=== PATIENT | female | born 1950 | race Caucasian/White ===

== ENCOUNTER 2016-11-21 19:17 | Inpatient (IN) | payer OTHER, MEDICARE ==
[~2016-11-21] VITALS: Ht 165.1 cm; Wt 73.4 kg
[2016-11-21] VITALS (14 sets, daily range): BP systolic 149–218; BP diastolic 69–104; PULSE 116–123; RESP 12–24; TEMP 99.2; O2SAT 92–99
[~2016-11-21 19:17] MED LIST: ALBU1AER INH; AZIT250T74 PO; CEFU1TAB42 PO; LISI10 PO; METF500 PO; PRED5PAK PO; VENL75 PO
[2016-11-21] MEDS ORDERED: VENL75TA PO (19:27)
[2016-11-21] MEDS ORDERED: ALBUAER3 INH (19:27)
[2016-11-21] MEDS ORDERED: RESP: ALBUTEROL 2.5 MG/3 ML NEB (PRN) ONE (19:42)
[2016-11-21] MEDS: RESP: ALBUTEROL 2.5 MG/3 ML NEB (SCH) INH ×3 (19:44→20:04)
--- NOTE | 2016-11-21 19:44 | PD ---
HPI Chief Complaint: Respiratory Symptoms Time Seen by Provider: 19:29 Travel History International Travel<30 days: No Contact w/Intl Traveler<30days: No Traveled to known affect area: No History of Present Illness HPI 66yo F with PMH of COPD not on home O2 presents to the ED with c/o of sob and cough for 2 days. Pt was given 125mg solumedrol, duonebs x3 by [facility] and states she is feeling a little better. Pt is tachypneic, RR in the mid 30s and saturating at 92% on 4L NC. Pt with bilateral wheezing, rhonchi. States she also has self diagnosed panic attacks. Denies any fever, chest pain, n/v, abdominal pain. Denies history of intubation. PFSH Past Medical History Arthritis: No Asthma: No Autoimmune Disease: No Blood Disorders: No Anxiety: No Depression: No Heart Rhythm Problems: No Cancer: No Cardiovascular Problems: Yes High Cholesterol: Yes Chemotherapy: No Chest Pain: No Congestive Heart Failure: No COPD: Yes Cerebrovascular Accident: No Coronary Artery Disease: Yes Diabetes: No Diminished Hearing: No Endocrine: No Gastrointestinal Disorders: No GERD: No Glaucoma: No Genitourinary: No Headaches: No Hepatitis: No Hiatal Hernia: No Heparin Induced Thrombocytopen: No Hypertension: No Immune Disorder: No Kidney Stones: No Musculoskeletal: Yes Neurologic: No Psychiatric: No Reproductive: No Respiratory: Yes (COPD) Migraines: No Myocardial Infarction: No Radiation Therapy: No Renal Failure: No Seizures: No Sickle Cell Disease: No Sleep Apnea: No Thyroid Disease: No Ulcer: No Tetanus Vaccination: Unknown Influenza Vaccination: Yes ?: Not Menopausal: Yes Past Surgical History Abdominal Surgery: Yes AICD: No Appendectomy: No Arteriovenous Shunt: No Body Medical Devices: none Cardiac Surgery: Yes (right carotid 2008) Cholecystectomy: Yes Ear Surgery: No Endocrine Surgery: No Eye Surgery: No Genitourinary Surgery: No Gynecologic Surgery: No Insulin Pump: No Joint Replacement: No Mastectomy: No Neurologic Surgery: No Oral Surgery: No Pacemaker: No Thoracic Surgery: No Other Surgery: Yes (UMBILICAL HERNIA REPAIR) Social History Alcohol Use: Yes (4 daily) Tobacco Use: Yes (1ppd) Substance Use: No Allergies-Medications (Allergen,Severity, Reaction): Coded Allergies: Codeine (Verified Adverse Reaction, Severe, "VIOLENTLY NAUSEATED", 11/21/16) Reported Meds & Prescriptions Reported Meds & Active Scripts Active Reported Effexor (Venlafaxine HCl) 75 Mg Tab 75 Mg PO DAILY Proair Hfa 8.5 GM Inh (Albuterol Sulfate) 90 Mcg/Act Aer 1 Puff INH Q4H PRN 108 mcg/actuation Review of Systems Except as stated in HPI: all other systems reviewed are Neg Physical Exam Narrative GENERAL: 66yo F in moderate distress. SKIN: Warm and dry. HEAD: Atraumatic. Normocephalic. EYES: Pupils equal and round. No scleral icterus. No injection or drainage. ENT: No nasal bleeding or discharge. Mucous membranes pink and moist. NECK: Trachea midline. No JVD. CARDIOVASCULAR: Tachycardic in the 120s. RESPIRATORY: + accessory muscle use. Coarse bilateral breath sounds with wheezing bilaterally. GASTROINTESTINAL: Abdomen soft, non-tender, nondistended. Hepatic and splenic margins not palpable. MUSCULOSKELETAL: No obvious deformities. No clubbing. No cyanosis. No edema. NEUROLOGICAL: Awake and alert. No obvious cranial nerve deficits. Motor grossly within normal limits. Normal speech. PSYCHIATRIC: Appropriate mood and affect; insight and judgment normal. Data Data Last Documented VS Vital Signs Date Time Temp Pulse Resp B/P Pulse Ox O2 Delivery O2 Flow Rate FiO2 11/21/16 20:50 119 12 149/90 98 Ventilator 50 11/21/16 20:04 3.00 11/21/16 19:54 99.2 Orders Complete Blood Count With Diff (11/21/16 19:38) Basic Metabolic Panel (Bmp) (11/21/16 19:38) B-Type Natriuretic Peptide (11/21/16 19:38) Act Partial Throm Time (Ptt) (11/21/16 19:38) Prothrombin Time / Inr (Pt) (11/21/16 19:38) Ckmb (Isoenzyme) Profile (11/21/16 19:38) Troponin I (11/21/16 19:38) Blood Culture (11/21/16 19:38) Iv Access Insert/Monitor (11/21/16 19:38) Electrocardiogram (11/21/16 19:38) Ecg Monitoring (11/21/16 19:38) Oximetry (11/21/16 19:38) Oxygen Administration (11/21/16 19:38) Chest, Single Ap (11/21/16 19:38) Sodium Chloride 0.9% Flush (Ns Flush) (11/21/16 19:45) Albuterol Neb (Albuterol Neb) (11/21/16 19:45) Lactic Acid Sepsis Protocol (11/21/16 19:38) Lorazepam Inj (Ativan Inj) (11/21/16 19:45) Arterial Blood Gas (Abg) (11/21/16 ) Albuterol Neb (Albuterol Neb) (11/21/16 19:42) Resp Bipap / Cpap Non Invas Vt (11/21/16 19:45) Hydralazine Inj (Apresoline Inj) (11/21/16 20:00) Etomidate Inj (Amidate Inj) (11/21/16 20:32) Sodium Chlor 0.9% 1000 Ml Inj (Ns 1000 M (11/21/16 20:45) Sodium Chlor 0.9% 1000 Ml Inj (Ns 1000 M (11/21/16 20:45) Sodium Chlor 0.9% 1000 Ml Inj (Ns 1000 M (11/21/16 20:45) RASS (11/21/16 20:32) Neurological Rass Scale GALO.Q2H (11/21/16 20:32) Succinylcholine Inj (Quelicin Inj) (11/21/16 20:33) Etomidate Inj (Amidate Inj) (11/21/16 20:45) Succinylcholine Inj (Quelicin Inj) (11/21/16 20:45) Propofol 1000 Mg/100 Ml Inj (Diprivan 10 (11/21/16 20:45) ^ Infusion (11/21/16 20:32) Admit Order (Ed Use Only) (11/21/16 20:58) Labs Laboratory Tests Test 11/21/16 19:40 White Blood Count 18.0 TH/MM3 Red Blood Count 4.84 MIL/MM3 Hemoglobin 12.0 GM/DL Hematocrit 38.0 % Mean Corpuscular Volume 78.5 FL Mean Corpuscular Hemoglobin 24.9 PG Mean Corpuscular Hemoglobin 31.7 % Concent Red Cell Distribution Width 18.5 % Platelet Count 476 TH/MM3 Mean Platelet Volume 8.1 FL Neutrophils (%) (Auto) 68.7 % Lymphocytes (%) (Auto) 16.9 % Monocytes (%) (Auto) 8.1 % Eosinophils (%) (Auto) 5.9 % Basophils (%) (Auto) 0.4 % Neutrophils # (Auto) 12.3 TH/MM3 Lymphocytes # (Auto) 3.0 TH/MM3 Monocytes # (Auto) 1.5 TH/MM3 Eosinophils # (Auto) 1.1 TH/MM3 Basophils # (Auto) 0.1 TH/MM3 CBC Comment AUTO DIFF Differential Comment AUTO DIFF CONFIRMED Platelet Estimate HIGH Platelet Morphology Comment NORMAL Ovalocytes 1+ Stomatocytes 1+ Prothrombin Time 10.8 SEC Prothromb Time International 1.0 RATIO Ratio Activated Partial 26.8 SEC Thromboplast Time Sodium Level 141 MEQ/L Potassium Level 4.1 MEQ/L Chloride Level 104 MEQ/L Carbon Dioxide Level 28.6 MEQ/L Anion Gap 8 MEQ/L Blood Urea Nitrogen 4 MG/DL Creatinine 0.65 MG/DL Estimat Glomerular Filtration 91 ML/MIN Rate Random Glucose 168 MG/DL Lactic Acid Level 0.7 mmol/L Calcium Level 9.0 MG/DL Total Creatine Kinase 86 U/L Troponin I LESS THAN 0.02 NG/ML B-Type Natriuretic Peptide 101 PG/ML [facility] Medical Decision Making Medical Screen Exam Complete: Yes Emergency Medical Condition: Yes Interpretation(s) EKG: Sinus tachycardia at 124bpm. Normal axis. Poor baseline due to pt's breathing. Differential Diagnosis COPD exacerbation vs. Pneumonia vs. ACS Narrative Course 66yo F with COPD in respiratory distress. Pt had already received methylprednisolone and duonebs x3 by [facility] and is tachypneic at 36 breaths per minute and tachycardic in the 120s. Pt hypoxic with saturation at 92% on 4L NC. Pt with diffuse wheezing bilaterally and placed immediately on BIPAP. Pt initially doing better on BIPAP but started pulling the mask off, stating she has panic attacks. Ativan 1mg IV given and pt placed back on BIPAP. Pt reevaluated and still tachypneic in the low 30s. Pt still with diffuse wheezing after 3 more albuterol treatments. Pt is becoming tired and decision is made to emergently intubate patient. Labs reviewed, leukocytosis at 18.0. Troponin negative. BNP 101. Lactic acid 0.7. Pt given NS IVF and also hydralazine 10mg IV. Pt started on propofol drip. CXR negative. Repeat CXR showed ET tube at 2.3cm above coreen. Discussed with Dr. Velazquez and accepted to ICU at [facility]. Pt's initial vent settings were 10/450/5/100% and ABG showed respiratory acidosis with pH was 7.052 pCO2 111 pO2 377 HCO2 29.5. Respiratory rate increased to 14 and FiO2 decreased to 50%. Will repeat ABG. Repeat ABG showed pH of 7.15 pCO2 improved to 83. pO2 108. Discussed with Dr. Velazquez and Tidal volume increase to 500 and RR to remain at 14. Critical Care Narrative Aggregate critical care time was 90 minutes. Time to perform other separately billable procedures was not included in the critical care time. My time did not include minutes spent treating any other patients simultaneously or on activities that did not directly contribute to the patient's treatment. The services I provided to this patient were to treat and/or prevent clinically significant deterioration that could result in: cardiovascular collapse or . I provided critical care services requiring my management, as noted below: Chart data review, documentation time, medication orders and management, vital sign assessments/reviewing monitor data, ordering and reviewing lab tests, ordering and interpreting/reviewing x-rays and diagnostic studies, care of the patient and discussion of the patient with the admitting physicians. Procedures Procedure Narrative The patient was put in optimal position for the procedure. Rapid sequence intubation was initiated by me using 20 milligrams of etomidate IV and 100 milligrams of succinylcholine IV. The patient was intubated with a 7.5 cuffed endotracheal tube. Tube placement was confirmed by visualization of the tube and balloon passing through the cords, capnometry and subsequent chest x-ray. Breath sounds were equal and well aerated bilaterally postintubation. No breath sounds over stomach. Patient tolerated procedure well. Diagnosis Primary Impression: Acute respiratory failure with hypoxia Additional Impression: Chronic obstructive pulmonary disease with acute exacerbation Admitting Information Admitting Physician Requests: it An Goldberg DO Nov 21, 2016 19:44
[2016-11-21] MEDS ORDERED: SODIUM CHLORIDE 0.9% FLUSH 5 ML FLUSH IVF PRN (19:45)
[2016-11-21] MEDS ORDERED: LORazepam 2 MG/ML VIAL IV PUSH ONE (19:45)
[2016-11-21 19:55] LABS: AUTOMATED NEUTROPHIL # 12.3 TH/MM3 (1.8-7.7); BASOPHIL # 0.1 TH/MM3 (0-0.2); BASOPHIL % 0.4 % (0.0-2.0); EOSINOPHIL # 1.1 TH/MM3 (0-0.4); EOSINOPHIL % 5.9 % (0.0-4.0); LYMPH % 16.9 % (9.0-44.0); MEAN CELL VOLUME 78.5 FL (80.0-100.0); MEAN CORPUSCULAR HEMOGLOBIN 24.9 PG (27.0-34.0); MEAN CORPUSCULAR HGB CONC 31.7 % (32.0-36.0); MONO % 8.1 % (0.0-8.0); NEUT % 68.7 % (16.0-70.0); PLATELET COUNT 476 TH/MM3 (150-450); RED BLOOD COUNT 4.84 MIL/MM3 (4.00-5.30); RED CELL DISTRIBUTION WIDTH 18.5 % (11.6-17.2)
[2016-11-21 19:59] LABS: HEMO FLAGS AUTO DIFF
[2016-11-21] MEDS ORDERED: hydrALAZINE HCL 20 MG/ML VIAL IV PUSH ONE (20:00)
[2016-11-21 20:04] LABS: CHLORIDE 104 MEQ/L (98-107); POTASSIUM 4.1 MEQ/L (3.5-5.1); SODIUM (NA) 141 MEQ/L (136-145)
[2016-11-21 20:07] LABS: ANION GAP 8 MEQ/L (5-15); BICARBONATE 28.6 MEQ/L (21.0-32.0); BLOOD UREA NITROGEN 4 MG/DL (7-18)
[2016-11-21 20:09] LABS: APTT (PATIENT) 26.8 SEC (24.3-30.1); PROTHROMBIN TIME - PATIENT 10.8 SEC (9.8-11.6)
[2016-11-21 20:10] LABS: GLOMERULAR FILTRATION RATE 91 ML/MIN (>89); OVALOCYTES 1+ (NORMAL); PLATELET ESTIMATE SMEAR HIGH (NORMAL); PLATELET MORPHOLOGY NORMAL (NORMAL); SCAN/DIFF AUTO DIFF CONFIRMED; STOMATOCYTES 1+ (NORMAL)
[2016-11-21 20:18] LABS: CREATINE KINASE 86 U/L (26-192)
[2016-11-21] MEDS ORDERED: ETOMIDATE 20 MG/10 ML VIAL ONE (20:32)
[2016-11-21] MEDS ORDERED: SUCCINYLCHOLINE CHLORIDE 200 MG/10 ML VIAL ONE (20:33)
[2016-11-21] MEDS ORDERED: SODIUM CHLOR 0.9% 1000 ML INJ 1,000 ML IV ONE ×3 (20:45)
[2016-11-21] MEDS ORDERED: ETOMIDATE 20 MG/10 ML VIAL IV PUSH ONE (20:45)
[2016-11-21] MEDS ORDERED: SUCCINYLCHOLINE CHLORIDE 200 MG/10 ML VIAL IV PUSH ONE (20:45)
[2016-11-21] MEDS ORDERED: SUCCINYLCHOLINE CHLORIDE 200 MG/10 ML VIAL IV SCH (20:50)
[2016-11-21] MEDS: PROPOFOL 1000 MG/100 ML INJ 100 ML IV SCH ×2 (20:50→21:55)
[2016-11-21] MEDS ORDERED: ETOMIDATE 20 MG/10 ML VIAL IV PUSH SCH (20:50)
--- NOTE | 2016-11-21 21:05 | RADHPO ---
EXAM DATE/TIME: 11/21/2016 20:26 [facility] COMPARISON: CHEST SINGLE AP, February 15, 2016, 17:00. INDICATIONS : Shortness of breath. MEDICAL HISTORY : Chronic obstructive pulmonary disease. SURGICAL HISTORY : None. ENCOUNTER: Initial ACUITY: 1 day PAIN SCORE: 2/10 LOCATION: Bilateral chest FINDINGS: A single view of the chest demonstrates the lungs to be symmetrically aerated without evidence of mas s, infiltrate or effusion. The cardiomediastinal contours are unremarkable. Osseous structures are intact. CONCLUSION: No acute cardiopulmonary disease demonstrated. Tarun Salamanca MD on November 21, 2016 at 21:04 Board Certified Radiologist. This report was verified electronically.
--- NOTE | 2016-11-21 21:29 | RADHPO ---
EXAM DATE/TIME: 11/21/2016 21:17 [facility] COMPARISON: CHEST SINGLE AP, November 21, 2016, 20:26. INDICATIONS : Post intubation. MEDICAL HISTORY : Chronic obstructive pulmonary disease. SURGICAL HISTORY : None. ENCOUNTER: Subsequent ACUITY: 1 day PAIN SCORE: Non-responsive. LOCATION: Bilateral chest FINDINGS: Patient has been intubated. Endotracheal tube tip is about 2.3 cm above the coreen. Lungs remain reas onably clear. No pleural effusion. No pneumothorax. Stable, normal heart size. CONCLUSION: Interim intubation with endotracheal tube tip about 2.3 cm above the coreen. Lungs remain reasonably clear. Tarun Salamanca MD on November 21, 2016 at 21:27 Board Certified Radiologist. This report was verified electronically.
[2016-11-21 21:54] LABS: BLOOD GAS BASE EXCESS -0.3 mmol/L (-2-2); BLOOD GAS CARBOXYHEMOGLOBIN 1.6 % (0-4); BLOOD GAS HCO3 30 mmol/L (22-26); BLOOD GAS METHEMOGLOBIN 1.3 % (0-2); BLOOD GAS O2 HGB SATURATION 97 % (90-100); BLOOD GAS OXYGEN CONTENT 16.7 Vol % (12.0-20.0); BLOOD GAS PCO2 111 mmHG (38-42); BLOOD GAS PO2 377 mmHG (61-120); BLOOD GAS TOTAL HGB 11.6 G/DL (12.0-16.0); TEMP CORR TO 98.6
[2016-11-21 21:55] LABS: CRITICAL VALUE YES; DRAW SITE RT RADIAL; FIO2 100 %; NUMBER OF ARTERIAL PUNCTURES 1; OXYGEN DEVICE VENTILATOR; STAT YES; ULNAR PULSE PRESENT
[2016-11-21 22:55] LABS: BLOOD GAS BASE EXCESS -0.4 mmol/L (-2-2); BLOOD GAS CARBOXYHEMOGLOBIN 1.9 % (0-4); BLOOD GAS HCO3 28 mmol/L (22-26); BLOOD GAS METHEMOGLOBIN 1.3 % (0-2); BLOOD GAS O2 HGB SATURATION 93 % (90-100); BLOOD GAS OXYGEN CONTENT 14.6 Vol % (12.0-20.0); BLOOD GAS PCO2 83 mmHG (38-42); BLOOD GAS PO2 108 mmHG (61-120); TEMP CORR TO 98.6
[2016-11-21 22:56] LABS: CRITICAL VALUE YES; DRAW SITE RT RADIAL; FIO2 50 %; NUMBER OF ARTERIAL PUNCTURES 1; OXYGEN DEVICE VENTILATOR; STAT YES; ULNAR PULSE PRESENT; VENT SETTINGS PRVC/AC
[2016-11-22] VITALS (98 sets, daily range): BP systolic 78–211; BP diastolic 46–163; PULSE 80–121; RESP 13–38; TEMP 98.7–98.9; O2SAT 86–100
[2016-11-22] MEDS: PROPOFOL 1000 MG/100 ML INJ 100 ML IV SCH ×5 (00:20→19:08)
[2016-11-22] MEDS: RESP: ALBUTEROL 2.5 MG/3 ML NEB (SCH) NEB ×4 (01:15→07:23)
[2016-11-22 01:32] LABS: BLOOD GAS BASE EXCESS 1.6 mmol/L (-2-2); BLOOD GAS CARBOXYHEMOGLOBIN 1.8 % (0-4); BLOOD GAS HCO3 28 mmol/L (22-26); BLOOD GAS METHEMOGLOBIN 1.4 % (0-2); BLOOD GAS O2 HGB SATURATION 95 % (90-100); BLOOD GAS OXYGEN CONTENT 14.6 Vol % (12.0-20.0); BLOOD GAS PCO2 66 mmHG (38-42); BLOOD GAS PO2 117 mmHG (61-120); BLOOD GAS TOTAL HGB 10.8 G/DL (12.0-16.0); CRITICAL VALUE YES; DRAW SITE RT BRACHIAL; FIO2 50 %; NUMBER OF ARTERIAL PUNCTURES 1; OXYGEN DEVICE VENTILATOR; STAT NO; TEMP CORR TO 98.6; VENT SETTINGS PRVC/AC
[2016-11-22] MEDS: fentaNYL DRIP 250 ML IV SCH (05:13)
[2016-11-22] MEDS ORDERED: CHLORHEXIDINE GLUCONATE 2 % 1 PACK (2 CLOTHS)(extra cloths) TOP PRN (05:15)
[2016-11-22] MEDS: SODIUM CHLOR 0.9% 1000 ML INJ 1,000 ML IV SCH ×2 (08:07→19:28)
--- NOTE | 2016-11-22 08:14 | PD.PROCEDR ---
Central Line Procedure REASON FOR PROCEDURE Central venous access PROCEDURE PERFORMED Central line placement: Right internal jugular vein CONSENT Informed consent for procedure was obtained. The risks and benefits of the procedure were discussed to include but limited to bleeding, clot formation, infection, and even . ANESTHESIA Local injection of 1% Lidocaine DESCRIPTION OF THE PROCEDURE The patient was placed in supine, mild Trendelenburg position. The area was exposed and cleansed with ChloraPrep, times two. Large sterile drape was used to cover the patient, with the site exposed, under sterile conditions including cap, face mask, sterile gown, and sterile gloves. On single attempt, the introducer needle was inserted with negative pressure in syringe and venous flash was obtained. The guide wire was then advanced without any restriction and the needle was removed. The dilator was used without any complications. Using Seldinger technique the triple-lumen catheter was advanced over the guide wire to a depth of 16 centimeters. The guide wire was removed. All ports were aspirated with dark venous blood return and flushed easily with sterile saline. All ports were capped. Antibiotic disc was placed around central line at puncture site. The central line was secured to the skin with two interrupted 2.0 silk sutures. The area was bandaged with sterile see-through central line bandage. RADIOLOGICAL DATA Ultrasound guidance was used to locate right internal jugular vein. Doppler/ color flow was used to confirm venous flow. COMPLICATIONS: No apparent complications ESTIMATED BLOOD LOSS: Less than 1 cc. Aubrey Lombardo MD Nov 22, 2016 08:14
[2016-11-22] MEDS ORDERED: GLUCAGON 1 MG/ML VIAL OTHER PRN (08:15)
[2016-11-22] MEDS ORDERED: POTASSIUM PHOSPHATE INJ 30 MMOL in SODIUM CHLOR 0.9% 250 ML INJ 250 ML IV PRN (08:15)
[2016-11-22] MEDS ORDERED: SODIUM CHLORIDE 0.9% FLUSH 5 ML FLUSH IVF PRN (08:15)
[2016-11-22] MEDS ORDERED: SENNOSIDES SYRUP 8.8 MG/5 ML CUP G-TUBE PRN (08:15)
[2016-11-22] MEDS ORDERED: ONDANSETRON HCL 4 MG/2 ML VIAL IV PRN (08:15)
[2016-11-22] MEDS ORDERED: MAGNESIUM SULFATE INJ 2 GM in SODIUM CHLORIDE 0.9% INJ 96 ML IV PRN (08:15)
[2016-11-22] MEDS ORDERED: MAGNESIUM SULFATE INJ 4 GM in SODIUM CHLORIDE 0.9% INJ 92 ML IV PRN (08:15)
[2016-11-22] MEDS ORDERED: DEXTROSE 50% IN WATER 50 ML VIAL(D50) IV PUSH PRN (08:15)
[2016-11-22] MEDS ORDERED: POTASSIUM PHOSPHATE MONOBASIC 500 MG TAB PO/TUBE PRN (08:15)
[2016-11-22] MEDS ORDERED: CHLORHEXIDINE GLUCONATE 2 % 1 PACK (2 CLOTHS) TOP PRN (08:15)
[2016-11-22] MEDS ORDERED: POTASSIUM CL 40 MEQ/30 ML LIQ UDC PO/TUBE PRN ×2 (08:15)
[2016-11-22] MEDS ORDERED: POTASSIUM PHOSPHATE MONOBASIC 500 MG TAB PO PRN (08:15)
[2016-11-22] MEDS ORDERED: POTASSIUM CHLOR 40 MEQ PREMIX 100 ML IV PRN ×2 (08:15)
[2016-11-22] MEDS ORDERED: MISCELLANEOUS NURSING INFORMATION XX SCH (08:15)
[2016-11-22] MEDS ORDERED: MAGNESIUM OXIDE 400 MG TAB PO PRN (08:15)
[2016-11-22] MEDS ORDERED: POTASSIUM CHLOR 20 MEQ PREMIX 100 ML IV PRN ×2 (08:15)
[2016-11-22] MEDS ORDERED: SODIUM PHOSPHATE INJ 30 MMOL in SODIUM CHLOR 0.9% 250 ML INJ 240 ML IV PRN (08:15)
--- NOTE | 2016-11-22 08:16 | HHI.HP ---
[facility] Service Critical Care Medicine Primary Care Physician No Primary Care Physician Admission Diagnosis Acute hypoxic respiratory failure Diagnosis: (1) Acute respiratory failure with hypoxia and hypercapnia Diagnosis: Principal (2) Chronic obstructive pulmonary disease with acute exacerbation Diagnosis: Principal (3) Alcohol abuse, daily use Diagnosis: Principal (4) Hypertension Diagnosis: Principal (5) Systemic inflammatory response syndrome Diagnosis: Principal (6) Sinus tachycardia Diagnosis: Principal (7) Hyperglycemia Diagnosis: Principal (8) Leukocytosis Diagnosis: Principal Chief Complaint: Shortness of breath Travel History International Travel<30 Days: No Contact w/Intl Traveler <30 Da: No Traveled to Known Affected Are: No Sepsis Criteria SIRS Criteria (2 or more): RR > 20 or PaCO2 < 32, WBC > 76768, < 4000 or > 10 % bands Criteria Outcome: Meets SIRS criteria History of Present Illness 66-year-old female. Date of admission 11/22/2016. Past medical history includes COPD, EtOH, depression, chronic neck pain and peripheral neuropathy. She presented to [facility] with 2 day history of respiratory distress. No other information is currently available patient is intubated. She received 125 mg methylprednisolone and duonebs x3 by [facility] but arrived hypoxic, tachycardic tachypneic. She did not tolerate BiPAP due to anxiety. Received 3 additional DuoNeb therapies but still tired so decision was is made to emergently intubate patient. She received 20 mg etomidate and 100 mg succinylcholine successfully intubated. Chest x-ray revealed no acute findings. Patient will will have increased tidal volume and respiratory rate both PCO2. She has a leukocytosis of 18,000. Review of Systems ROS Limitations: Intubated Past Family Social History Allergies: Coded Allergies: Codeine (Verified Adverse Reaction, Severe, "VIOLENTLY NAUSEATED", 11/21/16) Past Medical History COPD Hypertension EtOH Tobaccoism - quit 7 days ago Chronic neck pain Depression/panic attacks Peripheral neuropathy Past Surgical History Tubal ligation Abdominal hernia repair Right carotid endarterectomy Lumbar laminectomy Cholecystectomy Reported Medications Effexor 75 mg by mouth daily Pro Air 1 puff every 4 hours as needed Active Ordered Medications Reviewed in EMR Family History Mother with diabetes. Sister with COPD Social History 1 pack per day tobacco since age 26. 3-4 beers daily. Positive THC use Physical Exam Vital Signs Vital Signs Date Time Temp Pulse Resp B/P Pulse Ox O2 Delivery O2 Flow Rate FiO2 2/3/17 07:25 95 50 11/22/16 06:00 102 11/22/16 05:30 86 50 11/22/16 04:00 121 11/22/16 04:00 95 40 11/22/16 02:12 113 18 98 Ventilator 50 11/22/16 02:00 100 11/22/16 02:00 99 100 11/22/16 01:46 114 17 160/74 99 50 11/22/16 01:01 112 15 150/69 98 50 11/22/16 00:31 111 15 163/74 97 50 11/22/16 00:06 113 18 178/82 98 50 11/22/16 00:05 98 50 11/22/16 00:03 50 11/21/16 23:33 116 18 150/69 99 50 11/21/16 22:50 119 18 172/75 97 50 11/21/16 22:19 121 18 153/73 98 50 11/21/16 21:58 123 17 165/81 99 50 11/21/16 21:55 98 50 11/21/16 21:49 50 11/21/16 21:36 121 15 190/88 99 100 11/21/16 21:30 100 11/21/16 21:21 122 12 175/86 11/21/16 21:00 95 100 11/21/16 20:50 119 12 149/90 98 Ventilator 50 11/21/16 20:50 50 11/21/16 20:04 98 Nasal Cannula 3.00 11/21/16 19:54 99.2 116 22 206/85 95 BiPAP 40 11/21/16 19:53 24 94 BiPAP 40 11/21/16 19:45 98 40 11/21/16 19:35 BiPAP 40 11/21/16 19:32 120 20 94 Nasal Cannula 4 11/21/16 19:20 99.2 120 20 218/104 92 Physical Exam GENERAL: 66-year-old female, critically ill currently orotracheally intubated SKIN: Warm and dry. No rash HEAD: Atraumatic. Normocephalic. EYES: Pupils equal and round about 2 mm bilaterally and reactive. No scleral icterus. No injection or drainage. ENT: No nasal bleeding or discharge. Mucous membranes pink and moist. NECK: Trachea midline. No JVD. Enlarged. Supple. CARDIOVASCULAR: Regular rate and rhythm. S1, S2. No S4. No murmur RESPIRATORY: End expiratory wheeze. Coarse crackles appreciated bilaterally. Breath sounds equal bilaterally. GASTROINTESTINAL: Abdomen soft, non-tender, obese. Hypoactive bowel sounds are appreciated hepatic and splenic margins not palpable. MUSCULOSKELETAL: Extremities with bilateral nonpitting edema. No obvious deformities. NEUROLOGICAL: Sedated on the ventilator on propofol drip. Withdraws to pain in all 4 extremities. Positive gag. Positive corneal reflex. Laboratory Laboratory Tests Test 11/21/16 11/21/16 11/21/16 11/22/16 19:40 21:35 22:40 01:18 White Blood Count 18.0 Red Blood Count 4.84 Hemoglobin 12.0 Hematocrit 38.0 Mean Corpuscular Volume 78.5 Mean Corpuscular Hemoglobin 24.9 Mean Corpuscular Hemoglobin 31.7 Concent Red Cell Distribution Width 18.5 Platelet Count 476 Mean Platelet Volume 8.1 Neutrophils (%) (Auto) 68.7 Lymphocytes (%) (Auto) 16.9 Monocytes (%) (Auto) 8.1 Eosinophils (%) (Auto) 5.9 Basophils (%) (Auto) 0.4 Neutrophils # (Auto) 12.3 Lymphocytes # (Auto) 3.0 Monocytes # (Auto) 1.5 Eosinophils # (Auto) 1.1 Basophils # (Auto) 0.1 CBC Comment AUTO DIFF Differential Comment AUTO DIFF CONFIRMED Platelet Estimate HIGH Platelet Morphology Comment NORMAL Ovalocytes 1+ Stomatocytes 1+ Prothrombin Time 10.8 Prothromb Time International 1.0 Ratio Activated Partial 26.8 Thromboplast Time Sodium Level 141 Potassium Level 4.1 Chloride Level 104 Carbon Dioxide Level 28.6 Anion Gap 8 Blood Urea Nitrogen 4 Creatinine 0.65 Estimat Glomerular Filtration 91 Rate Random Glucose 168 Lactic Acid Level 0.7 Calcium Level 9.0 Total Creatine Kinase 86 Troponin I LESS THAN 0.02 B-Type Natriuretic Peptide 101 Blood Gas Puncture Site RT RADIAL RT RADIAL RT BRACHIAL Blood Gas Patient Temperature 98.6 98.6 98.6 Blood Gas HCO3 30 28 28 Blood Gas Base Excess -0.3 -0.4 1.6 Blood Gas Oxygen Saturation 97 93 95 Arterial Blood pH 7.05 7.15 7.26 Arterial Blood Partial 111 83 66 Pressure CO2 Arterial Blood Partial 377 108 117 Pressure O2 Arterial Blood Oxygen Content 16.7 14.6 14.6 Arterial Blood 1.6 1.9 1.8 Carboxyhemoglobin Arterial Blood Methemoglobin 1.3 1.3 1.4 Blood Gas Hemoglobin 11.6 11.0 10.8 Oxygen Delivery Device VENTILATOR VENTILATOR VENTILATOR Blood Gas Ventilator Setting A/C 450/10/5 PRVC/AC PRVC/AC PEEP Blood Gas Inspired Oxygen 100 50 50 Date/Time Procedure Status Source Growth 11/21/16 19:45 Aerobic Blood Culture Received Blood Peripheral Pending 11/21/16 19:45 Anaerobic Blood Culture Received Blood Peripheral Pending Result Diagram: 11/21/16193911/21/161939 Imaging Last Impressions Chest X-Ray 11/21/161937 Signed Impressions: Service Date/Time: November 20:26 - CONCLUSION: No acute cardiopulmonary disease demonstrated. Tarun Salamanca MD Assessment and Plan Assessment and Plan Neuro/Psych: History of depression/anxiety EtOH Patient is currently on propofol at 40 mcg/kg/m/fentanyl at 50 g an hour for sedation/analgesia while intubated Goal of RASS -2. Daily sedation vacation Vitamin bag daily 3 days for EtOH use Monitor for DTs Currently holding home medication Effexor 75 mg by mouth daily. Resume when clinically indicated CV: History of hypertension History of right carotid endarterectomy Currently normal saline at 84 cc an hour. Not requiring antihypertensives and/or vasopressors at the present time Resp: Acute hypoxic and hypercapnic respiratory failure COPD Tobaccoism ACV 14/600/5/50 Ventilator bundle Bronchodilator therapy every 4 hours and as needed Pulmicort twice a day Solu-Medrol 40 mg IV every 8 hours Spontaneous breathing trials daily Follow-up chest x-ray in a.m. No acute findings on a.m. chest x-ray On pulmonary every 4 hours at home as needed GI: Start tube feeding with Jevity 1.5 goal 50 cc an hour Protonix for GI prophylaxis Colace/as needed Senokot for bowel regimen : Dorsey has been placed for accurate I's and O's in critically ill patient Endo: Every 6 hours sliding scale insulin with Accu-Cheks to maintain euglycemia. Moderate regimen. Renal: Creatinine currently within normal limits. Accurate I's and O's. Monitor urine output Heme: Leukocytosis Follow-up CBC in AM. Monitor trends ID: Day 1 Rocephin/Zithromax. Pertinent cultures Blood cultures 2 pending Influenza/UA/sputum pending FEN: Replace electrolytes as clinically indicated per ICU protocol MSK: Chronic neck pain History of lumbar laminectomy PT evaluate and treat Access - Utilize peripheral IV. Central line if indicated Prophylaxis - GI - Protonix - DVT - SCD/heparin subcutaneous Critical Care: The total critical care time was 55 minutes. Time to perform other separately billable procedures was not included in the critical care time. Code Status Full code Discussed Condition With [facility]. Family not available. Care plan discussed all questions answered. Problem Qualifiers (1) Hypertension: Qualified Code: I10 - Essential hypertension (2) Leukocytosis: Qualified Code: D72.829 - Leukocytosis, unspecified type Aubrey Lombardo MD Nov 22, 2016 08:15
--- NOTE | 2016-11-22 08:28 | RADHPO ---
EXAM DATE/TIME: 11/22/2016 08:17 [facility] COMPARISON: CHEST SINGLE AP, November 21, 2016, 21:17. INDICATIONS : Post central line. MEDICAL HISTORY : Chronic obstructive pulmonary disease. Hypercholesterolemia. CAD. TB. ENCOUNTER: Subsequent ACUITY: 2 days PAIN SCORE: 10/10 LOCATION: Right chest FINDINGS: Central line is in good position. The ET tube and nasogastric tube are in good position. The lungs are clear. The heart and pulmonary vascularity are normal. CONCLUSION: Line in good position without pneumothorax. Bebeto Donis MD FACR on November 22, 2016 at 8:24 Board Certified Radiologist. This report was verified electronically.
[2016-11-22] MEDS: SODIUM CHLORIDE 0.9% FLUSH 5 ML FLUSH IV FLUSH SCH ×2 (09:34→19:28)
[2016-11-22] MEDS: SODIUM CHLORIDE 0.9% FLUSH 5 ML FLUSH IVF SCH (09:35)
[2016-11-22] MEDS: PANTOPRAZOLE SODIUM 40 MG VIAL IV SCH (09:42)
[2016-11-22] MEDS: HEPARIN SODIUM - SQ 10,000 UNITS/ML VIAL SQ SCH ×2 (09:43→19:27)
[2016-11-22] MEDS: AZITHROMYCIN INJ 500 MG in SODIUM CHLOR 0.9% 250 ML INJ 250 ML IV SCH (09:44)
[2016-11-22] MEDS ORDERED: TERBUTALINE INJ 1 MG/ML AMP SQ PRN (10:00)
[2016-11-22 10:05] LABS: BLOOD, URINE NEG (NEG); GLUCOSE,URINE NEG (NEG); KETONE, URINE NEG (NEG); NITRITE,URINE NEG (NEG)
[2016-11-22 10:12] LABS: METHOD OF COLLECTION CATH
[2016-11-22 10:13] LABS: COMMENT (UR) CATH-CULT NOT IND; CULTURE IF INDICATED CATH CULTURE NOT IND; RBC, URINE 0-3 /hpf (0-3); URINE COLOR YELLOW (YELLW/STRAW); WBC, URINE 0-2 /hpf (0-5)
[2016-11-22] MEDS: MULTIVITAMIN INJ 10 ML, THIAMINE INJ 100 MG, FOLIC ACID INJ 1 MG in SODIUM CHLORID 0.9%... IV SCH (10:16)
[2016-11-22] MEDS: ARTIFICIAL TEARS OPTH SOLN 15 ML BTL EACH EYE SCH ×3 (10:41→18:22)
[2016-11-22] MEDS: DOCUSATE SODIUM 100 MG/10 ML UDC G-TUBE SCH ×2 (10:41→19:27)
[2016-11-22] MEDS: cefTRIAXone INJ 1,000 MG in SODIUM CHLORIDE 0.9% INJ 100 ML IV SCH (10:43)
[2016-11-22] MEDS: PHENYLEPHRINE INJ 160 MG in DEXTROSE 5% IN WATE 500 ML INJ 484 ML IV SCH ×2 (11:02)
[2016-11-22] MEDS: RESP: BUDESONIDE 0.5 MG/2 ML NEB NEB SCH ×2 (11:05→19:38)
[2016-11-22] MEDS: RESP: ALBUTEROL 2.5 MG/IPRATROPIUM 0.5 MG NEB (SCH) INH ×3 (11:05→19:38)
[2016-11-22 11:22] LABS: BLOOD GAS BASE EXCESS 0.5 mmol/L (-2-2); BLOOD GAS CARBOXYHEMOGLOBIN 1.2 % (0-4); BLOOD GAS HCO3 26 mmol/L (22-26); BLOOD GAS O2 HGB SATURATION 97 % (90-100); BLOOD GAS OXYGEN CONTENT 14.1 Vol % (12.0-20.0); BLOOD GAS PCO2 56 mmHg (38-42); BLOOD GAS PO2 126 mmHg (61-120); BLOOD GAS TOTAL HGB 10.2 G/DL (12.0-16.0); CRITICAL VALUE YES; OXYGEN DEVICE VENTILATOR
[2016-11-22 11:23] LABS: DRAW SITE LT RADIAL; FIO2 50 %; NUMBER OF ARTERIAL PUNCTURES 1; STAT NO; ULNAR PULSE PRESENT; VENT SETTINGS AC14/600/PEEP5
[2016-11-22] MEDS: INSULIN NovoLIN REGULAR SUPPLEMENTAL SCALE SQ SCH ×2 (12:32→18:22)
--- NOTE | 2016-11-22 13:57 | EKG ---
Date Performed: 11/21/2016 Time Performed: 21:40:22 PTAGE: 66 years EKG: Sinus tachycardia ST junctional depression is nonspecific Compared to the previous tracing, there has been an increase in the sinus tachycardia and the minimal junctional ST depression is new Borderline ECG PREVIOUS TRACING : 02/15/16 DOCTOR: Rhnoda Oneal Interpretating Date/Time 11/22/2016 13:56:59
[2016-11-22] MEDS: methylPREDNISolone SOD SUCC 40 MG/1 ML VIAL IV PUSH SCH ×2 (14:16→19:27)
[2016-11-23] VITALS (74 sets, daily range): BP systolic 90–168; BP diastolic 47–77; PULSE 58–100; RESP 9–25; TEMP 97.6–98.7; O2SAT 96–100
[2016-11-23] MEDS: PROPOFOL 1000 MG/100 ML INJ 100 ML IV SCH ×5 (00:01→22:28)
[2016-11-23] MEDS: CHLORHEXIDINE GLUCONATE 2 % 1 PACK (2 CLOTHS)(taper/protocol) TOP SCH (00:01)
[2016-11-23] MEDS: INSULIN NovoLIN REGULAR SUPPLEMENTAL SCALE SQ SCH ×5 (00:01→23:27)
[2016-11-23] MEDS: RESP: ALBUTEROL 2.5 MG/IPRATROPIUM 0.5 MG NEB (SCH) INH ×7 (01:45→23:28)
[2016-11-23] MEDS ORDERED: CHLORHEXIDINE GLUCONATE 2 % 1 PACK (2 CLOTHS) TOP SCH (04:00)
[2016-11-23] MEDS: SODIUM CHLOR 0.9% 1000 ML INJ 1,000 ML IV SCH ×2 (04:17→21:05)
[2016-11-23] MEDS: methylPREDNISolone SOD SUCC 40 MG/1 ML VIAL IV PUSH SCH ×3 (04:27→21:04)
[2016-11-23 06:07] LABS: AUTOMATED NEUTROPHIL # 16.9 TH/MM3 (1.8-7.7); BASOPHIL % 0.1 % (0.0-2.0); LYMPHOCYTE # 1.6 TH/MM3 (1.0-4.8); MEAN CELL VOLUME 79.5 FL (80.0-100.0); MEAN CORPUSCULAR HEMOGLOBIN 24.7 PG (27.0-34.0); MEAN CORPUSCULAR HGB CONC 31.1 % (32.0-36.0); MONO % 6.6 % (0.0-8.0); NEUT % 85.3 % (16.0-70.0); PLATELET COUNT 414 TH/MM3 (150-450); RED CELL DISTRIBUTION WIDTH 18.5 % (11.6-17.2); WHITE BLOOD COUNT 19.8 TH/MM3 (4.0-11.0)
[2016-11-23 06:09] LABS: HEMO FLAGS AUTO DIFF
[2016-11-23 06:16] LABS: CHLORIDE 107 MEQ/L (98-107); POTASSIUM 4.4 MEQ/L (3.5-5.1); SODIUM (NA) 143 MEQ/L (136-145)
[2016-11-23 06:20] LABS: APTT (PATIENT) 23.7 SEC (24.3-30.1); INTERNATIONAL NORMALIZED RATIO 0.9 RATIO
[2016-11-23 06:22] LABS: BANDS 2 % (0-6); POLYS (SEG NEUTROPHILS) 84 % (16-70); WBC DIFF SAMPLE 100
[2016-11-23 06:23] LABS: PLATELET ESTIMATE SMEAR NORMAL (NORMAL); PLATELET MORPHOLOGY NORMAL (NORMAL); SCAN/DIFF FINAL DIFF MANUAL
[2016-11-23 06:30] LABS: ALKALINE PHOSPHATASE 119 U/L (45-117); ALT (GPT) 16 U/L (10-53); ANION GAP 5 MEQ/L (5-15); AST (GOT) 23 U/L (15-37); BICARBONATE 31.2 MEQ/L (21.0-32.0); BLOOD UREA NITROGEN 11 MG/DL (7-18); GLOMERULAR FILTRATION RATE 79 ML/MIN (>89); MAGNESIUM 2.4 MG/DL (1.5-2.5); TOTAL BILIRUBIN ADULT 0.2 MG/DL (0.2-1.0)
--- NOTE | 2016-11-23 06:35 | RADHPO ---
EXAM DATE/TIME: 11/23/2016 06:18 [facility] COMPARISON: CHEST SINGLE AP, November 22, 2016, 8:17. INDICATIONS : Shortness of breath. MEDICAL HISTORY : Chronic obstructive pulmonary disease. Hypercholesterolemia. CAD, TB SURGICAL HISTORY : None. ENCOUNTER: Subsequent ACUITY: 3 days PAIN SCORE: Non-responsive. LOCATION: Bilateral chest FINDINGS: Portable AP view of the chest demonstrates a normal-sized cardiac silhouette. ETT, NG tube, and right IJ line remain present. Lungs are mildly underinflated and there is stable interstitial prominence. No effusion, consolidation, or pneumothorax is appreciated. Bones demonstrate no acute finding. CONCLUSION: Stable chest x-ray with interstitial prominence bilaterally. Tarun Gerardo MD on November 23, 2016 at 6:32 Board Certified Radiologist. This report was verified electronically.
[2016-11-23] MEDS: RESP: BUDESONIDE 0.5 MG/2 ML NEB NEB SCH ×2 (07:41→19:03)
--- NOTE | 2016-11-23 08:16 | HHI.CCPN ---
Subjective Remarks/Hospital Course 66-year-old female. Date of admission 11/22/2016. Past medical history includes COPD, EtOH, depression, chronic neck pain and peripheral neuropathy. [facility] day history of respiratory distress. No other information is currently available patient is intubated. She received 125 mg methylprednisolone and duonebs x3 by EVAC but arrived hypoxic, tachycardic tachypneic. She did not tolerate BiPAP due to anxiety. Received 3 additional DuoNeb therapies but still tired so decision was is made to emergently intubate patient. She received 20 mg etomidate and 100 mg succinylcholine successfully intubated. Chest x-ray revealed no acute findings. Patient will will have increased tidal volume and respiratory rate both PCO2. She has a leukocytosis of 18,000. Subjective 11/23: Arousable on the ventilator. High peak pressures noted on the ventilator. Tolerating tube feeds. Afebrile. Moves all 4 extremities spontaneous and quite agitatedon sedation vacation Objective Vital Signs Date Time Temp Pulse Resp B/P Pulse Ox O2 Delivery O2 Flow Rate FiO2 11/23/16 07:48 99 40 11/23/16 06:15 90 14 160/71 11/23/16 04:00 98.7 11/22/16 02:12 Ventilator 11/21/16 20:04 3.00 Intake and Output 11/22/16 11/22/16 11/23/16 08:00 16:00 00:00 Intake Total 171 ml 1242 ml 644 ml Output Total 375 ml 250 ml 175 ml Balance -204 ml 992 ml 469 ml Result Diagram: 11/23/16 0435 11/23/16 0435 Other Results Microbiology Date/Time Procedure Status Source Growth 11/22/16 16:59 Influenza Types A,B Antigen (SASHA) - Final Complete Nasal Aspirate NEGATIVE FOR FLU A AND B ANTIGEN.... 11/22/16 16:29 Gram Stain Received Sputum Endotracheal Pending 11/22/16 16:29 Sputum Culture Received Sputum Endotracheal Pending 11/21/16 19:45 Aerobic Blood Culture - Preliminary Resulted Blood Peripheral NO GROWTH IN 1 DAY 11/21/16 19:45 Anaerobic Blood Culture - Preliminary Resulted Blood Peripheral NO GROWTH IN 1 DAY Imaging Last Impressions Chest X-Ray 11/23/16 0000 Signed Impressions: Service Date/Time: Wednesday, November 23, 2016 06:18 - CONCLUSION: Stable chest x-ray with interstitial prominence bilaterally. Tarun Gerardo MD Objective Remarks GENERAL: 66-year-old female, critically ill currently orotracheally intubated SKIN: Warm and dry. No rash HEAD: Atraumatic. Normocephalic. EYES: Pupils equal and round about 2 mm bilaterally and reactive. No scleral icterus. No injection or drainage. ENT: No nasal bleeding or discharge. Mucous membranes pink and moist. NECK: Trachea midline. No JVD. Enlarged. Supple. Right IJ clean dry and intact CARDIOVASCULAR: Regular rate and rhythm. S1, S2. No S4. No murmur RESPIRATORY: End expiratory wheeze. Coarse crackles appreciated bilaterally. Breath sounds equal bilaterally. GASTROINTESTINAL: Abdomen soft, non-tender, obese. Hypoactive bowel sounds are appreciated hepatic and splenic margins not palpable. MUSCULOSKELETAL: Extremities with bilateral nonpitting edema. No obvious deformities. NEUROLOGICAL: Sedated on the ventilator on propofol drip. Withdraws to pain in all 4 extremities. Positive gag. Positive corneal reflex. Urinary Catheter: Yes Assessment to: Continue Dorsey insert reason: Prolonged Immobilization Vascular Central Line Catheter: Yes Assessment to: Continue Date of Insertion: Nov 22, 2016 Line: Central Venous Catheter Side: Right Location: Internal, Jugular A/P Assessment and Plan Neuro/Psych: History of depression/anxiety EtOH Patient is currently on propofol at 50 mcg/kg/m/fentanyl at 150 g an hour for sedation/analgesia while intubated Versed drip to be added Goal of RASS -2. Daily sedation vacation Vitamin bag daily 3 days for EtOH use Monitor for DTs Currently holding home medication Effexor 75 mg by mouth daily. Resume when clinically indicated CV: History of hypertension History of right carotid endarterectomy Elevated troponin Currently normal saline at 84 cc an hour. Currently on low-dose Anthony-Synephrine at 30 g per minute likely secondary to sedation. Check 2-D echocardiogram with elevated troponin. Currently 0.13 Resp: Acute hypoxic and hypercapnic respiratory failure COPD Tobaccoism ACV 14/600/5/50 Ventilator bundle Bronchodilator therapy every 4 hours and as needed Pulmicort twice a day Solu-Medrol 40 mg IV every 8 hours Spontaneous breathing trials daily Follow-up chest x-ray in a.m. No acute findings on a.m. chest x-ray On pulmonary every 4 hours at home as needed GI: Start tube feeding with Jevity 1.5 goal 50 cc an hour Protonix for GI prophylaxis Colace/as needed Senokot for bowel regimen : Dorsey has been placed for accurate I's and O's in critically ill patient Endo: Every 6 hours sliding scale insulin with Accu-Cheks to maintain euglycemia. Moderate regimen. Renal: Creatinine currently within normal limits. Accurate I's and O's. Monitor urine output Heme: Leukocytosis Microcytic anemia Follow-up CBC in AM. Monitor trends ID: Day 2 Rocephin/Zithromax. Pertinent cultures 2/2 - Blood cultures 2 no growth 2/3 -sputum pending Influenza negative FEN: Hypophosphatemia 3 dosages of Neutra-Phos Replace electrolytes as clinically indicated per ICU protocol MSK: Chronic neck pain History of lumbar laminectomy PT evaluate and treat Access -Right IJ CVL day #2 Prophylaxis - GI - Protonix - DVT - SCD/heparin subcutaneous Critical Care: The total critical care time was 55 minutes. Time to perform other separately billable procedures was not included in the critical care time. Aubrey Lombardo MD Nov 23, 2016 08:16
[2016-11-23] MEDS: fentaNYL DRIP 250 ML IV SCH ×2 (08:43→19:20)
[2016-11-23] MEDS: MULTIVITAMIN INJ 10 ML, THIAMINE INJ 100 MG, FOLIC ACID INJ 1 MG in SODIUM CHLORID 0.9%... IV SCH (08:44)
[2016-11-23] MEDS ORDERED: GLYCERIN ADULT 2 GM SUPP RECTAL PRN (08:45)
[2016-11-23] MEDS ORDERED: POLYETHYLENE GLYCOL 17 GM PKG PO ONE (08:45)
[2016-11-23] MEDS ORDERED: SODIUM CHLOR 0.9% 1000 ML INJ 1,000 ML IV ONE (08:45)
[2016-11-23] MEDS: ARTIFICIAL TEARS OPTH SOLN 15 ML BTL EACH EYE SCH ×3 (08:56→18:10)
[2016-11-23] MEDS: POLYETHYLENE GLYCOL 17 GM PKG PO SCH (09:00)
[2016-11-23] MEDS: SODIUM CHLORIDE 0.9% FLUSH 5 ML FLUSH IVF SCH (10:01)
[2016-11-23] MEDS: SODIUM CHLORIDE 0.9% FLUSH 5 ML FLUSH IV FLUSH SCH ×2 (10:01→21:05)
[2016-11-23] MEDS: PANTOPRAZOLE SODIUM 40 MG VIAL IV SCH (10:02)
[2016-11-23] MEDS: DOCUSATE SODIUM 100 MG/10 ML UDC G-TUBE SCH ×2 (10:11→21:03)
--- NOTE | 2016-11-23 10:13 | RADHPO ---
EXAM DATE/TIME: 11/23/2016 09:38 [facility] COMPARISON: CHEST SINGLE AP, November 23, 2016, 6:18. CHEST SINGLE AP, November 21, 2016, 21:17. INDICATIONS : Shortness of breath for four days. RADIATION DOSE: 9.82 CTDIvol (mGy) MEDICAL HISTORY : Chronic obstructive pulmonary disease. coronary artery disease SURGICAL HISTORY : Cholecystectomy. ENCOUNTER: Initial ACUITY: 1 day PAIN SCALE: Non-responsive LOCATION: Bilateral chest TECHNIQUE: Volumetric scanning of the chest was performed. Using automated exposure control and adjustment of t he mA and/or kV according to patient size, radiation dose was kept as low as reasonably achievable to obtain optimal diagnostic quality images. FINDINGS: LUNGS: There is minimal patchy density in the left lower lobe in right lower lobe. There is some scarring in the right upper lobe medially. No consolidation. No mass identified. 8mm nodule in the posterior rig ht upper lobe. PLEURAE: There is no pleural thickening or pleural effusion. MEDIASTINUM: The heart and great vessels demonstrate no acute abnormality. There is no mediastinal or hilar lymph adenopathy. Coronary artery calcifications. AXILLAE: Within normal limits. No lymphadenopathy. MUSCULOSKELETAL: Within normal limits for patient age. MISCELLANEOUS: The visualized upper abdominal organs demonstrate no acute abnormality. Nasogastric tube, endotrachea l tube and right jugular central line are seen. No pneumothorax. Cholecystectomy clips. CONCLUSION: 1. Minimal patchy densities in lower lobes could be atelectasis or minimal inflammation. 2. No consolidation or mass. 3. Scarring the right upper lobe. 4. Nonspecific 8 mm nodular density right upper lobe posteriorly. Follow up CT chest in 6 months viktor mmended for stability. Julius Ayala MD on November 23, 2016 at 10:05 Board Certified Radiologist. This report was verified electronically.
[2016-11-23] MEDS: AZITHROMYCIN INJ 500 MG in SODIUM CHLOR 0.9% 250 ML INJ 250 ML IV SCH (10:16)
[2016-11-23] MEDS: HEPARIN SODIUM - SQ 10,000 UNITS/ML VIAL SQ SCH ×2 (10:19→21:05)
[2016-11-23] MEDS: cefTRIAXone INJ 1,000 MG in SODIUM CHLORIDE 0.9% INJ 100 ML IV SCH (11:45)
[2016-11-23] MEDS: POTASSIUM PHOSPHATE/SODIUM PHOSPHATE 250 MG TAB PO SCH ×2 (14:25→21:05)
[2016-11-23] MEDS: SENNOSIDES SYRUP 8.8 MG/5 ML CUP G-TUBE SCH (21:04)
[2016-11-23] MEDS: CHLORHEXIDINE 0.12% (ORAL KIT) 15 ML CUP MT SCH (21:06)
[2016-11-24] VITALS (82 sets, daily range): BP systolic 96–178; BP diastolic 48–76; PULSE 72–130; RESP 8–25; TEMP 97.8–99.2; O2SAT 89–100
[2016-11-24] MEDS: PHENYLEPHRINE INJ 160 MG in DEXTROSE 5% IN WATE 500 ML INJ 484 ML IV SCH ×2 (00:26)
[2016-11-24] MEDS: PROPOFOL 1000 MG/100 ML INJ 100 ML IV SCH ×5 (03:24→19:36)
[2016-11-24] MEDS: RESP: ALBUTEROL 2.5 MG/IPRATROPIUM 0.5 MG NEB (SCH) INH ×6 (03:27→23:01)
[2016-11-24] MEDS: CHLORHEXIDINE GLUCONATE 2 % 1 PACK (2 CLOTHS)(taper/protocol) TOP SCH (03:42)
[2016-11-24 05:31] LABS: AUTOMATED NEUTROPHIL # 11.8 TH/MM3 (1.8-7.7); BASOPHIL # 0.1 TH/MM3 (0-0.2); BASOPHIL % 0.7 % (0.0-2.0); HEMATOCRIT 29.6 % (35.0-46.0); LYMPH % 6.4 % (9.0-44.0); LYMPHOCYTE # 0.9 TH/MM3 (1.0-4.8); MEAN CELL VOLUME 80.8 FL (80.0-100.0); MEAN CORPUSCULAR HEMOGLOBIN 24.7 PG (27.0-34.0); MEAN CORPUSCULAR HGB CONC 30.6 % (32.0-36.0); MONO % 5.8 % (0.0-8.0); NEUT % 87.1 % (16.0-70.0); PLATELET COUNT 368 TH/MM3 (150-450); RED BLOOD COUNT 3.67 MIL/MM3 (4.00-5.30); RED CELL DISTRIBUTION WIDTH 19.1 % (11.6-17.2); WHITE BLOOD COUNT 13.6 TH/MM3 (4.0-11.0)
[2016-11-24 05:45] LABS: CHLORIDE 113 MEQ/L (98-107); POTASSIUM 4.4 MEQ/L (3.5-5.1); SODIUM (NA) 147 MEQ/L (136-145)
[2016-11-24] MEDS: methylPREDNISolone SOD SUCC 40 MG/1 ML VIAL IV PUSH SCH ×3 (05:47→19:37)
[2016-11-24] MEDS: POTASSIUM PHOSPHATE/SODIUM PHOSPHATE 250 MG TAB PO SCH (05:47)
[2016-11-24 05:49] LABS: ANION GAP 5 MEQ/L (5-15); BICARBONATE 28.7 MEQ/L (21.0-32.0); BLOOD UREA NITROGEN 14 MG/DL (7-18); MAGNESIUM 2.8 MG/DL (1.5-2.5)
[2016-11-24 05:52] LABS: ALT (GPT) 29 U/L (10-53); AST (GOT) 34 U/L (15-37); GLOMERULAR FILTRATION RATE 81 ML/MIN (>89)
[2016-11-24 05:55] LABS: HEMO FLAGS AUTO DIFF
[2016-11-24] MEDS: INSULIN NovoLIN REGULAR SUPPLEMENTAL SCALE SQ SCH ×3 (06:02→18:54)
[2016-11-24] MEDS: fentaNYL DRIP 250 ML IV SCH ×2 (06:02→15:49)
[2016-11-24 06:18] LABS: ALKALINE PHOSPHATASE 106 U/L (45-117); TOTAL BILIRUBIN ADULT LESS THAN 0.1 MG/DL (0.2-1.0)
[2016-11-24 06:51] LABS: OVALOCYTES 1+ (NORMAL); PLATELET ESTIMATE SMEAR NORMAL (NORMAL); PLATELET MORPHOLOGY NORMAL (NORMAL); SCAN/DIFF AUTO DIFF CONFIRMED
--- NOTE | 2016-11-24 07:07 | RADHPO ---
EXAM DATE/TIME: 11/24/2016 06:34 [facility] COMPARISON: CHEST SINGLE AP, November 23, 2016, 6:18. INDICATIONS : Shortness of breath. MEDICAL HISTORY : Chronic obstructive pulmonary disease. Hypercholesterolemia. CAD, TB SURGICAL HISTORY : None. ENCOUNTER: Subsequent ACUITY: 4 - 6 days PAIN SCORE: Non-responsive. LOCATION: Bilateral chest FINDINGS: Portable AP view of the chest demonstrates a normal-sized cardiac silhouette. ETT, NG tube, and right IJ line remain present. Lungs are underinflated with mild bibasilar opacity. No pneumothorax or pleu ral effusion is visualized. CONCLUSION: Stable chest x-ray with underinflation and suspected atelectasis at the lung bases. Tarun Gerardo MD on November 24, 2016 at 6:57 Board Certified Radiologist. This report was verified electronically.
[2016-11-24] MEDS: RESP: BUDESONIDE 0.5 MG/2 ML NEB NEB SCH ×2 (07:53→20:03)
[2016-11-24] MEDS: AZITHROMYCIN INJ 500 MG in SODIUM CHLOR 0.9% 250 ML INJ 250 ML IV SCH (10:04)
[2016-11-24] MEDS: SODIUM CHLORIDE 0.9% FLUSH 5 ML FLUSH IV FLUSH SCH ×2 (10:05→19:37)
[2016-11-24] MEDS: HEPARIN SODIUM - SQ 10,000 UNITS/ML VIAL SQ SCH ×2 (10:05→19:37)
[2016-11-24] MEDS: PANTOPRAZOLE SODIUM 40 MG VIAL IV SCH (10:05)
[2016-11-24] MEDS: SODIUM CHLORIDE 0.9% FLUSH 5 ML FLUSH IVF SCH (10:06)
[2016-11-24] MEDS: POLYETHYLENE GLYCOL 17 GM PKG PO SCH (10:06)
[2016-11-24] MEDS: SENNOSIDES SYRUP 8.8 MG/5 ML CUP G-TUBE SCH ×2 (10:06→20:50)
[2016-11-24] MEDS: MULTIVITAMIN INJ 10 ML, THIAMINE INJ 100 MG, FOLIC ACID INJ 1 MG in SODIUM CHLORID 0.9%... IV SCH (10:07)
[2016-11-24] MEDS: CHLORHEXIDINE 0.12% (ORAL KIT) 15 ML CUP MT SCH ×2 (10:08→20:50)
[2016-11-24] MEDS: ARTIFICIAL TEARS OPTH SOLN 15 ML BTL EACH EYE SCH ×3 (10:08→18:52)
[2016-11-24] MEDS: DOCUSATE SODIUM 100 MG/10 ML UDC G-TUBE SCH ×2 (10:12→19:37)
[2016-11-24] MEDS: SODIUM CHLOR 0.9% 1000 ML INJ 1,000 ML IV SCH (10:21)
[2016-11-24] MEDS: cefTRIAXone INJ 1,000 MG in SODIUM CHLORIDE 0.9% INJ 100 ML IV SCH (11:08)
[2016-11-24] MEDS: MIDAZOLAM 100 MG/ML INJ 100 ML IV SCH (21:53)
[2016-11-24] MEDS ORDERED: MINERAL OIL LIQUID 30 ML CUP PO ONE (23:30)
--- NOTE | 2016-11-24 23:35 | HHI.CCPN ---
Subjective Remarks/Hospital Course 66-year-old female. Date of admission 11/22/2016. Past medical history includes COPD, EtOH, depression, chronic neck pain and peripheral neuropathy. She presented to [facility] with 2 day history of respiratory distress. No other information is currently available patient is intubated. She received 125 mg methylprednisolone and duonebs x3 by EVAC but arrived hypoxic, tachycardic tachypneic. She did not tolerate BiPAP due to anxiety. Received 3 additional DuoNeb therapies but still tired so decision was is made to emergently intubate patient. She received 20 mg etomidate and 100 mg succinylcholine successfully intubated. Chest x-ray revealed no acute findings. Patient will will have increased tidal volume and respiratory rate both PCO2. She has a leukocytosis of 18,000. 11/23: Arousable on the ventilator. High peak pressures noted on the ventilator. Tolerating tube feeds. Afebrile. Moves all 4 extremities spontaneous and quite agitatedon sedation vacation Subjective 11/24: Did not tolerate CPAP trials today. On high dose propofol drip at 50 mcg/ kg per minute secondary to severe agitation. Opens eyes but does not follow commands. Moves all 4 extremities spontaneously. Tolerating tube feeding. No bowel movement. Objective Vital Signs Date Time Temp Pulse Resp B/P Pulse Ox O2 Delivery O2 Flow Rate FiO2 11/24/16 21:00 82 11 116/60 99 11/24/16 20:00 40 11/24/16 20:00 98.8 11/22/16 02:12 Ventilator 11/21/16 20:04 3.00 Intake and Output 11/23/16 11/23/16 11/24/16 08:00 16:00 00:00 Intake Total 1046 ml 3085 ml Output Total 300 ml 1100 ml Balance 746 ml 1985 ml Result Diagram: 11/24/16 0505 11/24/16 0505 Other Results Microbiology Date/Time Procedure Status Source Growth 11/22/16 16:59 Influenza Types A,B Antigen (SASHA) - Final Complete Nasal Aspirate NEGATIVE FOR FLU A AND B ANTIGEN.... 11/22/16 16:29 Gram Stain - Final Complete Sputum Endotracheal 11/22/16 16:29 Sputum Culture - Final Complete Sputum Endotracheal HEAVY GROWTH NORMAL RESPIRATORY JOSÉ MIGUEL 11/21/16 19:45 Aerobic Blood Culture - Preliminary Resulted Blood Peripheral NO GROWTH IN 3 DAYS 11/21/16 19:45 Anaerobic Blood Culture - Preliminary Resulted Blood Peripheral NO GROWTH IN 3 DAYS Imaging Last Impressions Chest X-Ray 11/24/16 0600 Signed Impressions: Service Date/Time: Thursday, November 24, 2016 06:34 - CONCLUSION: Stable chest x-ray with underinflation and suspected atelectasis at the lung bases. Tarun Gerardo MD Chest CT 11/23/16 0000 Signed Impressions: Service Date/Time: Wednesday, November 23, 2016 09:38 - CONCLUSION: 1. Minimal patchy densities in lower lobes could be atelectasis or minimal inflammation. 2. No consolidation or mass. 3. Scarring the right upper lobe. 4. Nonspecific 8 mm nodular density right upper lobe posteriorly. Follow up CT chest in 6 months recommended for stability. Julius Ayala MD Objective Remarks GENERAL: 66-year-old female, critically ill currently orotracheally intubated SKIN: Warm and dry. No rash HEAD: Atraumatic. Normocephalic. EYES: Pupils equal and round about 2 mm bilaterally and reactive. No scleral icterus. No injection or drainage. ENT: No nasal bleeding or discharge. Mucous membranes pink and moist. NECK: Trachea midline. No JVD. Enlarged. Supple. Right IJ clean dry and intact CARDIOVASCULAR: Regular rate and rhythm. S1, S2. No S4. No murmur RESPIRATORY: End expiratory wheeze. Coarse crackles appreciated bilaterally. Breath sounds equal bilaterally. GASTROINTESTINAL: Abdomen soft, non-tender, obese. Hypoactive bowel sounds are appreciated hepatic and splenic margins not palpable. MUSCULOSKELETAL: Extremities with bilateral nonpitting edema. No obvious deformities. NEUROLOGICAL: Sedated on the ventilator on propofol drip. Withdraws to pain in all 4 extremities. Positive gag. Positive corneal reflex. Urinary Catheter: Yes Assessment to: Continue Dorsey insert reason: Prolonged Immobilization Vascular Central Line Catheter: Yes Assessment to: Continue Date of Insertion: Nov 22, 2016 Line: Central Venous Catheter Side: Right Location: Internal, Jugular A/P Assessment and Plan Neuro/Psych: History of depression/anxiety EtOH Patient is currently on propofol at 50 mcg/kg/m/fentanyl at 150 g an hour for sedation/analgesia while intubated Versed drip to be added if needed Goal of RASS -2. Daily sedation vacation Vitamin bag daily 3 days for EtOH use. Start thiamine 100 daily 2/6 Monitor for DTs Currently holding home medication Effexor 75 mg by mouth daily. Resume when clinically indicated Plan CT head/EEG in a.m. with altered mental status CV: History of hypertension History of right carotid endarterectomy Elevated troponin Currently normal saline at 84 cc an hour to be discontinued Currently on low-dose Anthony-Synephrine at 30 g per minute likely secondary to sedation. Check 2-D echocardiogram with elevated troponin. Currently 0.13 Resp: Acute hypoxic and hypercapnic respiratory failure COPD Tobaccoism Right upper lobe pulmonary nodule - follow-up CT scan 6 months recommended ACV 14/600/5/40 Ventilator bundle Bronchodilator therapy every 4 hours and as needed Pulmicort twice a day Solu-Medrol 40 mg IV every 8 hours Spontaneous breathing trials daily CT chest / revealed 8 mm nodule. Follow up CT scan in 6 months recommended On pulmonary every 4 hours at home as needed GI: Continue tube feeding with Jevity 1.5 goal 50 cc an hour Protonix for GI prophylaxis Colace/Senokot/MiraLAX twice a day for bowel regimen : Dorsey has been placed for accurate I's and O's in critically ill patient Endo: Every 6 hours sliding scale insulin with Accu-Cheks to maintain euglycemia. Moderate regimen. Renal: Creatinine currently within normal limits. Accurate I's and O's. Monitor urine output Heme: Leukocytosis Microcytic->normocytic anemia Follow-up CBC in AM. Monitor trends ID: Day 3 Rocephin/Zithromax. Pertinent cultures 2/2 - Blood cultures 2 no growth 2/3 -sputum no growth Influenza negative FEN: Hypernatremia Hypophosphatemia - resolved 3 dosages of Neutra-Phos Replace electrolytes as clinically indicated per ICU protocol Started on free water 200 cc every 6 hours. Recheck labs in a.m. MSK: Chronic neck pain History of lumbar laminectomy PT evaluate and treat Access -Right IJ CVL day #3 Prophylaxis - GI - Protonix - DVT - SCD/heparin subcutaneous Critical Care: The total critical care time was 35 minutes. Time to perform other separately billable procedures was not included in the critical care time. Aubrey Lombardo MD Nov 24, 2016 23:35
[2016-11-25] VITALS (67 sets, daily range): BP systolic 104–169; BP diastolic 45–98; PULSE 68–100; RESP 9–27; TEMP 97.4–99.3; O2SAT 78–100
[2016-11-25] MEDS: INSULIN NovoLIN REGULAR SUPPLEMENTAL SCALE SQ SCH ×5 (00:05→23:54)
[2016-11-25] MEDS: PROPOFOL 1000 MG/100 ML INJ 100 ML IV SCH ×4 (00:33→19:56)
[2016-11-25] MEDS: fentaNYL DRIP 250 ML IV SCH ×2 (01:18→08:24)
[2016-11-25] MEDS: CHLORHEXIDINE GLUCONATE 2 % 1 PACK (2 CLOTHS)(taper/protocol) TOP SCH (02:00)
[2016-11-25] MEDS: RESP: ALBUTEROL 2.5 MG/IPRATROPIUM 0.5 MG NEB (SCH) INH ×5 (03:25→19:42)
[2016-11-25 04:58] LABS: AUTOMATED NEUTROPHIL # 8.6 TH/MM3 (1.8-7.7); BASOPHIL # 0.2 TH/MM3 (0-0.2); BASOPHIL % 1.6 % (0.0-2.0); EOSINOPHIL % 0.1 % (0.0-4.0); HEMATOCRIT 28.2 % (35.0-46.0); LYMPH % 11.1 % (9.0-44.0); LYMPHOCYTE # 1.2 TH/MM3 (1.0-4.8); MEAN CELL VOLUME 81.3 FL (80.0-100.0); MEAN CORPUSCULAR HEMOGLOBIN 24.8 PG (27.0-34.0); MEAN CORPUSCULAR HGB CONC 30.6 % (32.0-36.0); MONO % 8.4 % (0.0-8.0); NEUT % 78.8 % (16.0-70.0); PLATELET COUNT 357 TH/MM3 (150-450); RED BLOOD COUNT 3.48 MIL/MM3 (4.00-5.30); RED CELL DISTRIBUTION WIDTH 19.3 % (11.6-17.2); WHITE BLOOD COUNT 10.9 TH/MM3 (4.0-11.0)
[2016-11-25 05:00] LABS: HEMO FLAGS AUTO DIFF
[2016-11-25 05:07] LABS: CHLORIDE 115 MEQ/L (98-107); SODIUM (NA) 148 MEQ/L (136-145)
[2016-11-25 05:11] LABS: ANION GAP 5 MEQ/L (5-15); BLOOD UREA NITROGEN 18 MG/DL (7-18); MAGNESIUM 3.1 MG/DL (1.5-2.5)
[2016-11-25 05:19] LABS: ALKALINE PHOSPHATASE 100 U/L (45-117); ALT (GPT) 64 U/L (10-53); AST (GOT) 58 U/L (15-37); GLOMERULAR FILTRATION RATE 78 ML/MIN (>89); TOTAL BILIRUBIN ADULT 0.2 MG/DL (0.2-1.0)
[2016-11-25] MEDS: methylPREDNISolone SOD SUCC 40 MG/1 ML VIAL IV PUSH SCH ×3 (05:29→20:11)
[2016-11-25] MEDS: FREE WATER G-TUBE SCH ×5 (05:30→23:54)
[2016-11-25 06:24] LABS: PLATELET ESTIMATE SMEAR NORMAL (NORMAL); PLATELET MORPHOLOGY NORMAL (NORMAL); SCAN/DIFF AUTO DIFF CONFIRMED
--- NOTE | 2016-11-25 06:37 | RADHPO ---
EXAM DATE/TIME: 11/25/2016 06:27 [facility] COMPARISON: CHEST SINGLE AP, November 24, 2016, 6:34. INDICATIONS : COPD. Respiratory failure. MEDICAL HISTORY : None. SURGICAL HISTORY : None. ENCOUNTER: Subsequent ACUITY: 3 days PAIN SCORE: Non-responsive. LOCATION: Bilateral chest FINDINGS: Endotracheal tube, enteric tube and right jugular line again seen. There is no definite consolidation or effusion. Cardiomegaly. CONCLUSION: No significant change has occurred. Osiel Murillo MD on November 25, 2016 at 6:35 Board Certified Radiologist. This report was verified electronically.
--- NOTE | 2016-11-25 07:42 | HHI.CCPN ---
Subjective Remarks/Hospital Course 66-year-old female. Date of admission 11/22/2016. Past medical history includes COPD, EtOH, depression, chronic neck pain and peripheral neuropathy. She presented to [facility] with 2 day history of respiratory distress. No other information is currently available patient is intubated. She received 125 mg methylprednisolone and duonebs x3 by EVAC but arrived hypoxic, tachycardic tachypneic. She did not tolerate BiPAP due to anxiety. Received 3 additional DuoNeb therapies but still tired so decision was is made to emergently intubate patient. She received 20 mg etomidate and 100 mg succinylcholine successfully intubated. Chest x-ray revealed no acute findings. Patient will will have increased tidal volume and respiratory rate both PCO2. She has a leukocytosis of 18,000. 11/23: Arousable on the ventilator. High peak pressures noted on the ventilator. Tolerating tube feeds. Afebrile. Moves all 4 extremities spontaneous and quite agitatedon sedation vacation Subjective 11/24: Did not tolerate CPAP trials today. On high dose propofol drip at 50 mcg/ kg per minute secondary to severe agitation. Opens eyes but does not follow commands. Moves all 4 extremities spontaneously. Tolerating tube feeding. No bowel movement. 11/25: Remains sedated, orally intubated on mechanical ventilation. Tolerating tube feeds. Had BM overnight. Objective Vital Signs Date Time Temp Pulse Resp B/P Pulse Ox O2 Delivery O2 Flow Rate FiO2 11/25/16 06:15 78 11 111/53 96 11/25/16 04:30 40 11/25/16 04:00 98.4 11/22/16 02:12 Ventilator 11/21/16 20:04 3.00 Intake and Output 11/24/16 11/24/16 11/25/16 08:00 16:00 00:00 Intake Total 1182 ml 2531 ml 840 ml Output Total 250 ml 350 ml 450 ml Balance 932 ml 2181 ml 390 ml Result Diagram: 11/25/16 0445 11/25/16 0445 Other Results Microbiology Date/Time Procedure Status Source Growth 11/22/16 16:29 Gram Stain - Final Complete Sputum Endotracheal 11/22/16 16:29 Sputum Culture - Final Complete Sputum Endotracheal HEAVY GROWTH NORMAL RESPIRATORY JOSÉ MIGUEL 11/22/16 16:59 Influenza Types A,B Antigen (SASHA) - Final Complete Nasal Aspirate NEGATIVE FOR FLU A AND B ANTIGEN.... Imaging Last Impressions Chest X-Ray 11/24/16 0600 Signed Impressions: Service Date/Time: Thursday, November 24, 2016 06:34 - CONCLUSION: Stable chest x-ray with underinflation and suspected atelectasis at the lung bases. Tarun Gerardo MD Chest CT 11/23/16 0000 Signed Impressions: Service Date/Time: Wednesday, November 23, 2016 09:38 - CONCLUSION: 1. Minimal patchy densities in lower lobes could be atelectasis or minimal inflammation. 2. No consolidation or mass. 3. Scarring the right upper lobe. 4. Nonspecific 8 mm nodular density right upper lobe posteriorly. Follow up CT chest in 6 months recommended for stability. Julius Ayala MD Objective Remarks GENERAL: 66-year-old female, critically ill currently orotracheally intubated SKIN: Warm and dry. No rash HEAD: Atraumatic. Normocephalic. EYES: Pupils equal and round about 2 mm bilaterally and reactive. No scleral icterus. No injection or drainage. ENT: No nasal bleeding or discharge. Mucous membranes pink and moist. NECK: Trachea midline. No JVD. Enlarged. Supple. Right IJ clean dry and intact CARDIOVASCULAR: Regular rate and rhythm. S1, S2. No S4. No murmur RESPIRATORY: Orally intubated on mechanical ventilation, no wheezing or crackles. Breath sounds equal bilaterally. Scattered rhonchi GASTROINTESTINAL: Abdomen soft, non-tender, obese. Hypoactive bowel sounds are appreciated hepatic and splenic margins not palpable. MUSCULOSKELETAL: Extremities with bilateral nonpitting edema. No obvious deformities. NEUROLOGICAL: Sedated on the ventilator on propofol drip. Withdraws to pain in all 4 extremities. Positive gag. Positive corneal reflex. Date of Insertion: Nov 22, 2016 Line: Central Venous Catheter Side: Right Location: Internal, Jugular A/P Assessment and Plan Neuro/Psych: History of depression/anxiety EtOH Patient is currently on propofol at 50 mcg/kg/m, versed 2mg/hr, fentanyl decreased [id number] for sedation/ analgesia while intubated. Versed drip to be added if needed Goal of RASS -2. Daily sedation vacation Vitamin bag daily 3 days for EtOH use. Start thiamine 100 daily 2/6 Monitor for DTs Currently holding home medication Effexor 75 mg by mouth daily. Resume when clinically indicated F/U CT head/EEG for altered mental status CV: Hypotension History of hypertension History of right carotid endarterectomy Elevated troponin IVF KVO Currently off Anthony-Synephrine. Check 2-D echocardiogram with elevated troponin. Currently 0.13 Resp: Acute hypoxic and hypercapnic respiratory failure COPD Tobaccoism Right upper lobe pulmonary nodule - follow-up CT scan 6 months recommended ACV 14/600/5/40 Ventilator bundle Bronchodilator therapy every 4 hours and as needed Pulmicort twice a day Solu-Medrol 40 mg IV every 8 hours Spontaneous breathing trials daily CT chest 11/24 revealed 8 mm nodule. Follow up CT scan in 6 months recommended On pulmonary every 4 hours at home as needed GI: Continue tube feeding with Jevity 1.5 goal 50 cc an hour Protonix for GI prophylaxis Colace/Senokot/MiraLAX twice a day for bowel regimen : Dorsey has been placed for accurate I's and O's in critically ill patient Endo: Every 6 hours sliding scale insulin with Accu-Cheks to maintain euglycemia. Moderate regimen. Renal: Creatinine currently within normal limits. Accurate I's and O's. Monitor urine output Heme: Leukocytosis Microcytic->normocytic anemia Follow-up CBC in AM. Monitor trends ID: Rocephin/Zithromax (started 2/3) Pertinent cultures 2/2 - Blood cultures 2 no growth 2/3 -sputum no growth Influenza negative FEN: Hypernatremia Hypophosphatemia - resolved 3 dosages of Neutra-Phos Replace electrolytes as clinically indicated per ICU protocol Started on free water 200 cc every 6 hours. Recheck labs in a.m. MSK: Chronic neck pain History of lumbar laminectomy PT evaluate and treat Access -Right IJ CVL day 2/3 Prophylaxis - GI - Protonix - DVT - SCD/heparin subcutaneous Critical Care: The total critical care time was 35 minutes. Time to perform other separately billable procedures was not included in the critical care time. Hema Avila MD Nov 25, 2016 07:42
[2016-11-25] MEDS: RESP: BUDESONIDE 0.5 MG/2 ML NEB NEB SCH ×2 (08:41→19:41)
[2016-11-25 08:54] LABS: TRANSFERRIN IRON PROFILE 292 MG/DL (200-360)
[2016-11-25] MEDS: HEPARIN SODIUM - SQ 10,000 UNITS/ML VIAL SQ SCH ×2 (09:00→19:57)
--- NOTE | 2016-11-25 09:04 | RADHPO ---
EXAM DATE/TIME: 11/25/2016 08:06 [facility] COMPARISON: No previous studies available for comparison. INDICATIONS : Altered mental status. RADIATION DOSE: 60.32 CTDIvol (mGy) MEDICAL HISTORY : Cardiovascular disease. Chronic obstructive pulmonary disease. SURGICAL HISTORY : Cholecystectomy. Umbilical hernia repair.Orthopedic surgery. ENCOUNTER: Initial ACUITY: 1 day PAIN SCALE: Non-responsive LOCATION: cranial TECHNIQUE: Multiple contiguous axial images were obtained of the head. Using automated exposure control and adj ustment of the mA and/or kV according to patient size, radiation dose was kept as low as reasonably a chievable to obtain optimal diagnostic quality images. FINDINGS: CEREBRUM: The ventricles are normal for age. No evidence of midline shift, mass lesion, hemorrhage or acute in farction. No extra-axial fluid collections are seen. POSTERIOR FOSSA: The cerebellum and brainstem are intact. The 4th ventricle is midline. The cerebellopontine angle i s unremarkable. EXTRACRANIAL: The visualized portion of the orbits is intact. SKULL: The calvaria is intact. No evidence of skull fracture. Minimal sinus disease is evident. CONCLUSION: Minimal sinus disease otherwise negative. Bebeto Donis MD FACR on November 25, 2016 at 9:01 Board Certified Radiologist. This report was verified electronically.
[2016-11-25] MEDS: MULTIVITAMIN INJ 10 ML, THIAMINE INJ 100 MG, FOLIC ACID INJ 1 MG in SODIUM CHLORID 0.9%... IV SCH (09:30)
[2016-11-25] MEDS: AZITHROMYCIN INJ 500 MG in SODIUM CHLOR 0.9% 250 ML INJ 250 ML IV SCH (10:09)
[2016-11-25] MEDS: PANTOPRAZOLE SODIUM 40 MG VIAL IV SCH (10:14)
[2016-11-25] MEDS: ARTIFICIAL TEARS OPTH SOLN 15 ML BTL EACH EYE SCH ×3 (10:14→18:25)
[2016-11-25] MEDS: THIAMINE HCL 100 MG TAB PO SCH (10:15)
[2016-11-25] MEDS: POLYETHYLENE GLYCOL 17 GM PKG PO SCH ×2 (10:15→19:57)
[2016-11-25] MEDS: SENNOSIDES SYRUP 8.8 MG/5 ML CUP G-TUBE SCH ×2 (10:15→19:57)
[2016-11-25] MEDS: METOCLOPRAMIDE HCL 10 MG/2 ML VIAL IV PUSH SCH ×3 (10:19→20:11)
[2016-11-25] MEDS: CHLORHEXIDINE 0.12% (ORAL KIT) 15 ML CUP MT SCH ×2 (10:21→20:29)
[2016-11-25] MEDS: DOCUSATE SODIUM 100 MG/10 ML UDC G-TUBE SCH ×2 (10:21→19:57)
[2016-11-25] MEDS: SODIUM CHLORIDE 0.9% FLUSH 5 ML FLUSH IV FLUSH SCH ×2 (10:21→20:29)
[2016-11-25] MEDS: SODIUM CHLORIDE 0.9% FLUSH 5 ML FLUSH IVF SCH (10:22)
[2016-11-25] MEDS: cefTRIAXone INJ 1,000 MG in SODIUM CHLORIDE 0.9% INJ 100 ML IV SCH (11:32)
--- NOTE | 2016-11-25 15:47 | EC ---
Study Study Date:11/22/2016 STUDY CONCLUSIONS SUMMARY - Left ventricle: The cavity size was normal. Wall thickness was normal. Systolic function was normal. The estimated ejection fraction was in the range of 55% to 60%. Wall motion was normal; there were no regional wall motion abnormalities. - Aortic valve: Valve area: 2.05cm^2 (Vmax). - Tricuspid valve: Moderate regurgitation. - Pulmonary arteries: Systolic pressure was moderately increased. PA peak pressure: 39mm Hg (S). If LV function is below 40, please consider prescribing an ACEI or ARB or document rationale for non-use. PROCEDURE DATA STUDY STATUS: Elective. Procedure: Transthoracic echocardiography. Image quality was fair. Scanning was performed from the parasternal, apical, and subcostal acoustic windows. Study completion: The patient tolerated the procedure well. Transthoracic echocardiography. M-mode, complete 2D, complete spectral Doppler, and color Doppler. Height: Height: 65in. Weight: Weight: 157.7lb. Body mass index: BMI: 26.3kg/m^2. Body surface area: BSA: 1.79m^2. Patient status: Inpatient. CARDIAC ANATOMY LEFT VENTRICLE: The cavity size was normal. Wall thickness was normal. Systolic function was normal. The estimated ejection fraction was in the range of 55% to 60%. Wall motion was normal; there were no regional wall motion abnormalities. AORTIC VALVE: Trileaflet; normal thickness leaflets. Doppler: Transvalvular velocity was within the normal range. There was no stenosis. No regurgitation. Valve area: 2.05cm^2 (Vmax). Indexed valve area: 1.15cm^2/m^2 (Vmax). AORTA: Aortic root: The aortic root was normal in size. MITRAL VALVE: Structurally normal valve. Doppler: Transvalvular velocity was within the normal range. There was no evidence for stenosis. No regurgitation. Peak gradient: 3mm Hg (D). LEFT ATRIUM: The atrium was normal in size. RIGHT VENTRICLE: The cavity size was normal. Wall thickness was normal. PULMONIC VALVE: Doppler: Transvalvular velocity was within the normal range. There was no evidence for stenosis. No regurgitation. TRICUSPID VALVE: Structurally normal valve. Doppler: Transvalvular velocity was within the normal range. Moderate regurgitation. PULMONARY ARTERY: The main pulmonary artery was normal-sized. Systolic pressure was moderately increased. RIGHT ATRIUM: The atrium was normal in size. PERICARDIUM: The amount of pericardial fluid appeared to be at the upper limits of normal. SYSTEMIC VEINS: Inferior vena cava: The vessel was normal in size. Patient weight: 157.7lb _Ejection fraction:_ 65-75% _Fractional shortening:_ 32% up to 5Kg 5-11.5Kg 11.6-22.9Kg 23-45Kg 45-57Kg Aortic Root 7-13 <17 13-22 17-27 17-27 LA diam 6-13 <23 24-38 33-47 37-40 RVID 10-17 7-15 7-15 7-18 8-17 LVIDd 12-22 <32 24-38 33-47 37-40 LVPW 2-4 3-6 5-7 6-8 7-8 IVS 2-4 3-6 5-7 6-8 7-8 BASIC MEASUREMENTS ADULT NORMAL Left ventricle LV internal dimension, ED, chordal *35.4 mm 43-52 level, PLAX LV internal dimension, ES, chordal 26.8 mm 23-38 level, PLAX Fractional shortening, chordal level, *24 % >29 PLAX LV posterior wall thickness, ED 8.21 mm IVS/LVPW ratio, ED 0.95 <1.3 Ventricular septum Septal thickness, ED 7.79 mm Aortic valve Leaflet separation *14 mm 15-26 BASIC MEASUREMENTS ADULT NORMAL Aortic valve Leaflet separation *14 mm 15-26 Aorta Root diameter, ED 22 mm 20-37 Left atrium Anterior-posterior dimension, ES 26 mm 19-40 Anterior-posterior dimension index, ES 1.45 cm/m^2 <2.2 LA/aortic root ratio 1.18 DOPPLER MEASUREMENTS ADULT NORMAL Main pulmonary artery Pressure, S *39 mm Hg =30 Aortic valve Peak velocity, S 122 cm/s Valve area, Vmax 2.05 cm^2 Valve area index, Vmax 1.15 cm^2/m^2 Mitral valve Peak E-wave velocity 80.5 cm/s Peak A-wave velocity 98.7 cm/s Deceleration time 155 ms 150-230 Peak gradient, D 3 mm Hg Peak E/A ratio 0.8 Tricuspid valve Regurgitant peak velocity 235 cm/s Peak RV-RA gradient, S 22 mm Hg Maximal regurgitant velocity 235 cm/s Systemic veins Estimated CVP 10 mm Hg Right ventricle RV pressure, S *47 mm Hg <30 Pulmonic valve Peak velocity, S 137 cm/s LEGEND: Mean values are shown as u=mean value. Asterisk (*) dixon values outside specified normal range. Prepared and signed by Nancy Miramontes [id number]
[2016-11-25] MEDS ORDERED: FUROSEMIDE 40 MG/4 ML VIAL IV PUSH STA (18:06)
[2016-11-25] MEDS: RESP: ALBUTEROL 2.5 MG/IPRATROPIUM 0.5 MG NEB (PRN) INH (18:07)
--- NOTE | 2016-11-25 20:34 | MG ---
cc: BALDOMERO MANCINI Lab No: Date: 11/25/2016 Age: Sex: F Race: EEG NUMBER [id number] Diprivan. Fentanyl. INDICATION A 66-year-old woman, hypoxic, sedated, COPD, alcohol, Solu-Medrol ceftriaxone. DESCRIPTION A burst suppression type pattern is noted, with suppressions lasting approximately up to 7 seconds and bursts of 6-7 Hz, normal theta rhythms lasting about 2 seconds. Sometimes the suppressions are just 2 seconds. The recording overall is synchronous and symmetrical. Photic stimulation was performed without significant posterior driving. Hyperventilation is not performed. No epileptiform or seizure activity is noted. IMPRESSION A burst suppression type pattern. No epileptiform or seizure activity is noted, however. Towards the of the recording the suppression were less lengthy as the Diprivan was turned off. Much of this burst suppression is likely from sedation effect. Some mild diffuse slowing was noted, possibly also medication effect. No seizure activity is noted. No epileptiform activity was seen. This could still be consistent with a moderate diffuse encephalopathy. Repeat EEG when the patient is fully off of sedatives could be performed depending on the clinical picture. Just at the end of the recording I did note some bifrontal slightly sharply contoured waves at epoch 134, so I am recommending a repeat EEG off sedatives fully. MD MARCELINO Mauricio/MEERA /6:55 PM /8:28 PM
[2016-11-26] VITALS (76 sets, daily range): BP systolic 95–227; BP diastolic 43–149; PULSE 70–124; RESP 10–60; TEMP 98.2–99.9; O2SAT 92–100
[2016-11-26] MEDS: RESP: ALBUTEROL 2.5 MG/IPRATROPIUM 0.5 MG NEB (SCH) INH ×7 (00:08→23:18)
[2016-11-26] MEDS: PROPOFOL 1000 MG/100 ML INJ 100 ML IV SCH ×4 (01:09→20:37)
[2016-11-26] MEDS: fentaNYL DRIP 250 ML IV SCH (03:11)
[2016-11-26] MEDS: CHLORHEXIDINE GLUCONATE 2 % 1 PACK (2 CLOTHS)(taper/protocol) TOP SCH (04:00)
[2016-11-26] MEDS: MIDAZOLAM 100 MG/ML INJ 100 ML IV SCH (04:04)
[2016-11-26] MEDS: FREE WATER G-TUBE SCH ×3 (05:30→18:00)
[2016-11-26] MEDS: methylPREDNISolone SOD SUCC 40 MG/1 ML VIAL IV PUSH SCH ×3 (05:30→20:38)
[2016-11-26] MEDS: METOCLOPRAMIDE HCL 10 MG/2 ML VIAL IV PUSH SCH ×3 (05:30→20:38)
[2016-11-26] MEDS: INSULIN NovoLIN REGULAR SUPPLEMENTAL SCALE SQ SCH ×3 (05:35→18:02)
[2016-11-26 06:03] LABS: AUTOMATED NEUTROPHIL # 7.2 TH/MM3 (1.8-7.7); BASOPHIL # 0.2 TH/MM3 (0-0.2); BASOPHIL % 1.6 % (0.0-2.0); EOSINOPHIL % 0.1 % (0.0-4.0); HEMATOCRIT 27.7 % (35.0-46.0); HEMO FLAGS DIFF FINAL; LYMPH % 19.7 % (9.0-44.0); MEAN CELL VOLUME 80.1 FL (80.0-100.0); MEAN CORPUSCULAR HEMOGLOBIN 25.2 PG (27.0-34.0); MEAN CORPUSCULAR HGB CONC 31.5 % (32.0-36.0); MONO % 9.2 % (0.0-8.0); NEUT % 69.4 % (16.0-70.0); PLATELET COUNT 385 TH/MM3 (150-450); RED BLOOD COUNT 3.45 MIL/MM3 (4.00-5.30); RED CELL DISTRIBUTION WIDTH 18.9 % (11.6-17.2); WHITE BLOOD COUNT 10.3 TH/MM3 (4.0-11.0)
[2016-11-26 06:06] LABS: CHLORIDE 110 MEQ/L (98-107); POTASSIUM 4.6 MEQ/L (3.5-5.1); SODIUM (NA) 149 MEQ/L (136-145)
[2016-11-26 06:10] LABS: ANION GAP 5 MEQ/L (5-15); BICARBONATE 34.4 MEQ/L (21.0-32.0); BLOOD UREA NITROGEN 22 MG/DL (7-18)
[2016-11-26 06:13] LABS: ALT (GPT) 80 U/L (10-53); AST (GOT) 45 U/L (15-37); GLOMERULAR FILTRATION RATE 102 ML/MIN (>89)
[2016-11-26 06:15] LABS: TOTAL BILIRUBIN ADULT 0.1 MG/DL (0.2-1.0)
[2016-11-26 06:16] LABS: ALKALINE PHOSPHATASE 93 U/L (45-117)
[2016-11-26] MEDS: RESP: BUDESONIDE 0.5 MG/2 ML NEB NEB SCH ×2 (07:43→19:33)
[2016-11-26] MEDS: CHLORHEXIDINE 0.12% (ORAL KIT) 15 ML CUP MT SCH ×2 (07:55→20:36)
--- NOTE | 2016-11-26 08:19 | HHI.CCPN ---
Subjective Remarks/Hospital Course 66-year-old female. Date of admission 11/22/2016. Past medical history includes COPD, EtOH, depression, chronic neck pain and peripheral neuropathy. She presented to [facility] with 2 day history of respiratory distress. No other information is currently available patient is intubated. She received 125 mg methylprednisolone and duonebs x3 by EVAC but arrived hypoxic, tachycardic tachypneic. She did not tolerate BiPAP due to anxiety. Received 3 additional DuoNeb therapies but still tired so decision was is made to emergently intubate patient. She received 20 mg etomidate and 100 mg succinylcholine successfully intubated. Chest x-ray revealed no acute findings. Patient will will have increased tidal volume and respiratory rate both PCO2. She has a leukocytosis of 18,000. 2: Arousable on the ventilator. High peak pressures noted on the ventilator. Tolerating tube feeds. Afebrile. Moves all 4 extremities spontaneous and quite agitatedon sedation vacation Subjective 11/24: Did not tolerate CPAP trials today. On high dose propofol drip at 50 mcg/ kg per minute secondary to severe agitation. Opens eyes but does not follow commands. Moves all 4 extremities spontaneously. Tolerating tube feeding. No bowel movement. 11/25: Remains sedated, orally intubated on mechanical ventilation. Tolerating tube feeds. Had BM overnight. 11/26: Remains sedated, orally intubated on mechanical ventilation. Tolerating tube feeds. Objective Vital Signs Date Time Temp Pulse Resp B/P Pulse Ox O2 Delivery O2 Flow Rate FiO2 11/26/16 07:44 96 50 11/26/16 06:30 98 16 165/68 11/26/16 04:00 98.9 Intake and Output 11/25/16 11/25/16 11/26/16 08:00 16:00 00:00 Intake Total 888 ml 2085 ml 515 ml Output Total 350 ml 550 ml 2400 ml Balance 538 ml 1535 ml -1885 ml Result Diagram: 11/26/16 0530 11/26/16 0530 Imaging Last Impressions Chest X-Ray 11/24/16 0600 Signed Impressions: Service Date/Time: Thursday, November 24, 2016 06:34 - CONCLUSION: Stable chest x-ray with underinflation and suspected atelectasis at the lung bases. Tarun Gerardo MD Chest CT 11/23/16 0000 Signed Impressions: Service Date/Time: Wednesday, November 23, 2016 09:38 - CONCLUSION: 1. Minimal patchy densities in lower lobes could be atelectasis or minimal inflammation. 2. No consolidation or mass. 3. Scarring the right upper lobe. 4. Nonspecific 8 mm nodular density right upper lobe posteriorly. Follow up CT chest in 6 months recommended for stability. Julius Ayala MD Objective Remarks GENERAL: 66-year-old female, critically ill currently orotracheally intubated SKIN: Warm and dry. No rash HEAD: Atraumatic. Normocephalic. EYES: Pupils equal and round about 2 mm bilaterally and reactive. No scleral icterus. No injection or drainage. ENT: No nasal bleeding or discharge. Mucous membranes pink and moist. NECK: Trachea midline. No JVD. Enlarged. Supple. Right IJ clean dry and intact CARDIOVASCULAR: Regular rate and rhythm. S1, S2. No S4. No murmur RESPIRATORY: Orally intubated on mechanical ventilation, no wheezing or crackles. Breath sounds equal bilaterally. Scattered rhonchi GASTROINTESTINAL: Abdomen soft, non-tender, obese. Hypoactive bowel sounds are appreciated hepatic and splenic margins not palpable. MUSCULOSKELETAL: Extremities with bilateral nonpitting edema. No obvious deformities. NEUROLOGICAL: Sedated on the ventilator on propofol drip. Withdraws to pain in all 4 extremities. Positive gag. Date of Insertion: Nov 22, 2016 Line: Central Venous Catheter Side: Right Location: Internal, Jugular A/P Assessment and Plan Neuro/Psych: History of depression/anxiety EtOH Patient is currently on propofol at 50 mcg/kg/m, versed 2.5mg/hr, fentanyl decreased [id number]/hr for sedation/ analgesia while intubated. Goal of RASS -2. Daily sedation vacation Vitamin bag daily 3 days for EtOH use. Start thiamine 100 daily 2/6 Monitor for DTs Currently holding home medication Effexor 75 mg by mouth daily. Resume when clinically indicated F/U CT head/EEG for altered mental status CV: Hypotension History of hypertension History of right carotid endarterectomy Elevated troponin IVF KVO Currently off Anthony-Synephrine. Elevated troponin. 2-D echo with normal LV function, moderate tricuspid regurgitation, minimal pulmonary hypertension with PASP 39 Resp: Acute hypoxic and hypercapnic respiratory failure COPD Tobaccoism Right upper lobe pulmonary nodule - follow-up CT scan 6 months recommended ACV 14/600/5/40 Ventilator bundle Bronchodilator therapy every 4 hours and as needed Pulmicort twice a day Solu-Medrol 40 mg IV every 8 hours Spontaneous breathing trials daily CT chest 11/24 revealed 8 mm nodule. Follow up CT scan in 6 months recommended Consult pulmonary for pulm nodule/COPD/ resp failure GI: Continue tube feeding with Jevity 1.5 goal 50 cc an hour Protonix for GI prophylaxis Colace/Senokot/MiraLAX twice a day for bowel regimen : Dorsey has been placed for accurate I's and O's in critically ill patient Endo: Every 6 hours sliding scale insulin with Accu-Cheks to maintain euglycemia. Moderate regimen. Renal: Creatinine currently within normal limits. Accurate I's and O's. Monitor urine output Heme: Leukocytosis Microcytic->normocytic anemia Follow-up CBC in AM. Monitor trends ID: Rocephin/Zithromax (started 2/3) Pertinent cultures 2/2 - Blood cultures 2 no growth 2/3 -sputum no growth Influenza negative FEN: Hypernatremia Hypophosphatemia - resolved 3 dosages of Neutra-Phos Replace electrolytes as clinically indicated per ICU protocol Started on free water 200 cc every 6 hours. MSK: Chronic neck pain History of lumbar laminectomy PT evaluate and treat Access -Right IJ CVL day 2/3 Prophylaxis - GI - Protonix - DVT - SCD/heparin subcutaneous Critical Care: The total critical care time was 35 minutes. Time to perform other separately billable procedures was not included in the critical care time. Hema Avila MD Nov 26, 2016 08:19
[2016-11-26] MEDS: SENNOSIDES SYRUP 8.8 MG/5 ML CUP G-TUBE SCH ×2 (09:00→20:37)
[2016-11-26] MEDS: DOCUSATE SODIUM 100 MG/10 ML UDC G-TUBE SCH ×2 (09:00→20:37)
[2016-11-26] MEDS: SODIUM CHLORIDE 0.9% FLUSH 5 ML FLUSH IVF SCH (09:00)
[2016-11-26] MEDS: POLYETHYLENE GLYCOL 17 GM PKG PO SCH ×2 (09:00→20:37)
[2016-11-26] MEDS: ARTIFICIAL TEARS OPTH SOLN 15 ML BTL EACH EYE SCH ×3 (09:18→18:02)
[2016-11-26] MEDS: AZITHROMYCIN INJ 500 MG in SODIUM CHLOR 0.9% 250 ML INJ 250 ML IV SCH (09:19)
[2016-11-26] MEDS: HEPARIN SODIUM - SQ 10,000 UNITS/ML VIAL SQ SCH ×2 (09:19→20:38)
[2016-11-26] MEDS: PANTOPRAZOLE SODIUM 40 MG VIAL IV SCH (09:20)
[2016-11-26] MEDS: SODIUM CHLORIDE 0.9% FLUSH 5 ML FLUSH IV FLUSH SCH ×2 (09:20→20:37)
[2016-11-26] MEDS: THIAMINE HCL 100 MG TAB PO SCH (09:22)
[2016-11-26] MEDS: cefTRIAXone INJ 1,000 MG in SODIUM CHLORIDE 0.9% INJ 100 ML IV SCH (10:27)
[2016-11-26] MEDS: RESP: ALBUTEROL 2.5 MG/IPRATROPIUM 0.5 MG NEB (PRN) INH (14:15)
[2016-11-27] VITALS (66 sets, daily range): BP systolic 109–204; BP diastolic 49–104; PULSE 62–104; RESP 9–33; TEMP 98.9–99.3; O2SAT 90–98
[2016-11-27] MEDS: PROPOFOL 1000 MG/100 ML INJ 100 ML IV SCH ×6 (00:12→23:17)
[2016-11-27] MEDS: INSULIN NovoLIN REGULAR SUPPLEMENTAL SCALE SQ SCH ×4 (00:14→17:27)
[2016-11-27] MEDS: CHLORHEXIDINE GLUCONATE 2 % 1 PACK (2 CLOTHS)(taper/protocol) TOP SCH (03:12)
[2016-11-27] MEDS: RESP: ALBUTEROL 2.5 MG/IPRATROPIUM 0.5 MG NEB (SCH) INH ×6 (03:58→23:42)
[2016-11-27] MEDS: methylPREDNISolone SOD SUCC 40 MG/1 ML VIAL IV PUSH SCH ×4 (05:10→23:18)
[2016-11-27] MEDS: FREE WATER G-TUBE SCH ×5 (05:11→23:18)
[2016-11-27] MEDS: METOCLOPRAMIDE HCL 10 MG/2 ML VIAL IV PUSH SCH ×3 (05:11→22:13)
[2016-11-27 05:44] LABS: AUTOMATED NEUTROPHIL # 6.4 TH/MM3 (1.8-7.7); BASOPHIL # 0.3 TH/MM3 (0-0.2); BASOPHIL % 2.7 % (0.0-2.0); EOSINOPHIL % 0.3 % (0.0-4.0); HEMATOCRIT 28.1 % (35.0-46.0); LYMPH % 21.4 % (9.0-44.0); LYMPHOCYTE # 2.1 TH/MM3 (1.0-4.8); MEAN CORPUSCULAR HEMOGLOBIN 24.9 PG (27.0-34.0); MEAN CORPUSCULAR HGB CONC 31.5 % (32.0-36.0); MONO % 10.6 % (0.0-8.0); PLATELET COUNT 367 TH/MM3 (150-450); RED BLOOD COUNT 3.57 MIL/MM3 (4.00-5.30); WHITE BLOOD COUNT 9.9 TH/MM3 (4.0-11.0)
[2016-11-27 05:45] LABS: HEMO FLAGS AUTO DIFF
[2016-11-27 05:59] LABS: CHLORIDE 108 MEQ/L (98-107); POTASSIUM 4.6 MEQ/L (3.5-5.1); SODIUM (NA) 148 MEQ/L (136-145)
--- NOTE | 2016-11-27 06:00 | MB ---
cc: LAQUITA GARCIA DATE OF CONSULTATION 11/26/2016 REASON FOR CONSULTATION Respiratory failure and COPD. HISTORY OF PRESENT ILLNESS This is a 66-year-old white female who was brought into the hospital with acute hypoxic respiratory failure, had to be intubated and placed on ventilator support. The patient is presently sedated and on 40% FIO2 and on AC rate of 12 and PEEP of 5. She has unable to respond to any commands and on propofol sedation. Attempts were made earlier today to wean her off the ventilator but she was tachypneic when weaned to C-PAP. Chest x-ray showed mild basilar infiltrates. PAST HISTORY 1. COPD with emphysema. 2. History of alcohol abuse. 3. Past history of hypertension. 4. Depression. 5. She has had chronic neck pain and back pain. 6. She has had panic attacks. 7. Peripheral neuropathy. PAST SURGICAL HISTORY 1. There is a history for tubal ligation. 2. Right carotid endarterectomy. 3. And abdominal hernia surgery. 4. Lumbar laminectomy. 5. Cholecystectomy. ALLERGIES CODEINE. FAMILY HISTORY Significant for diabetes in her mother. One sister has chronic bronchitis. HABITS The patient smoked one-pack per day for over 30 years and drinks beer daily. Drug screen was positive for THC. SYSTEMS REVIEW The patient is intubated, unable to respond to any questions. PHYSICAL EXAMINATION GENERAL: This is a moderately overweight middle-aged white female who is sedated, intubated, assisting the ventilator. VITAL SIGNS: Blood pressure is 140/70, pulse is 105, respirations 18-22, temperature 99.2. HEENT: Head normocephalic. Pupils are reactive. Tongue moist. Throat has secretions. No inflammation. Nasal mucosa edematous. NECK: Supple without venous distension. No bruits or thyroid enlargement or lymphadenopathy. CHEST: Equal movements with increased AP diameter with expiratory wheezes throughout both lung topete. Prolonged expirations with no definite crackles. HEART: The heart sounds are irregular. S1, S2. No murmur. No S3. ABDOMEN: Soft, benign. No mass, no organomegaly or tenderness. Slightly bloated. Bowel sounds are faint and there is no organomegaly. EXTREMITIES: Decreased pulses. No calf tenderness. NEUROLOGIC: Reflexes are 1+ and the patient is sedated and unable to respond and she does withdraw to stimuli. Babinskis negative. RECTAL: Exam is deferred. SKIN: No lesions noted. IMPRESSION 1. Hypoxic respiratory failure. 2. COPD with emphysema and chronic bronchitis. 3. History of depression and anxiety. 4. History of hypertension. PLAN 1. The patient has been placed on FIO2 of 40%. We will wean her off the sedation in the morning. I weaned the ventilator down to C-PAP 5 x 12, FIO2 35%. We will check her respiratory parameters and blood gases and she may she may come off the ventilator if she is clinically stable. 2. Continue with antibiotic coverage as ordered. 3. Follow-up x-ray of the chest to be done in the a.m. 4. Sedation medications daily. 5. Pulmonary function study if she is extubated. 6. We will check on the tracheal aspirate for Gram's stain and culture. I will follow the case with you, Dr. Avila. Thank you for this consultation. Laquita Garcia MD JTATO/AMANDA /11:22 PM /5:49 AM
[2016-11-27 06:04] LABS: ANION GAP 3 MEQ/L (5-15); BICARBONATE 37.3 MEQ/L (21.0-32.0); BLOOD UREA NITROGEN 22 MG/DL (7-18)
[2016-11-27 06:07] LABS: ALT (GPT) 89 U/L (10-53); AST (GOT) 33 U/L (15-37); GLOMERULAR FILTRATION RATE 106 ML/MIN (>89)
[2016-11-27 06:08] LABS: TOTAL BILIRUBIN ADULT 0.2 MG/DL (0.2-1.0)
[2016-11-27 06:10] LABS: ALKALINE PHOSPHATASE 99 U/L (45-117)
--- NOTE | 2016-11-27 07:04 | HHI.CCPN ---
Subjective Remarks/Hospital Course 66-year-old female. Date of admission 11/22/2016. Past medical history includes COPD, EtOH, depression, chronic neck pain and peripheral neuropathy. She presented to [facility] with 2 day history of respiratory distress. No other information is currently available patient is intubated. She received 125 mg methylprednisolone and duonebs x3 by EVAC but arrived hypoxic, tachycardic tachypneic. She did not tolerate BiPAP due to anxiety. Received 3 additional DuoNeb therapies but still tired so decision was is made to emergently intubate patient. She received 20 mg etomidate and 100 mg succinylcholine successfully intubated. Chest x-ray revealed no acute findings. Patient will will have increased tidal volume and respiratory rate both PCO2. She has a leukocytosis of 18,000. 2: Arousable on the ventilator. High peak pressures noted on the ventilator. Tolerating tube feeds. Afebrile. Moves all 4 extremities spontaneous and quite agitatedon sedation vacation Subjective 11/24: Did not tolerate CPAP trials today. On high dose propofol drip at 50 mcg/ kg per minute secondary to severe agitation. Opens eyes but does not follow commands. Moves all 4 extremities spontaneously. Tolerating tube feeding. No bowel movement. 11/25: Remains sedated, orally intubated on mechanical ventilation. Tolerating tube feeds. Had BM overnight. 11/26: Remains sedated, orally intubated on mechanical ventilation. Tolerating tube feeds. 11/27: Remains sedated, orally intubated on mechanical ventilation. Failed C Pap trial yesterday. Tolerating tube feeds Objective Vital Signs Date Time Temp Pulse Resp B/P Pulse Ox O2 Delivery O2 Flow Rate FiO2 11/27/16 06:00 62 11/27/16 06:00 17 168/68 95 11/27/16 04:06 35 11/27/16 04:00 99.1 Intake and Output 11/26/16 11/26/16 11/27/16 08:00 16:00 00:00 Intake Total 699 ml 1140 ml 633 ml Output Total 400 ml 550 ml 550 ml Balance 299 ml 590 ml 83 ml Result Diagram: 11/27/16 0524 11/27/16 0524 Imaging Last Impressions Chest X-Ray 11/24/16 0600 Signed Impressions: Service Date/Time: Thursday, November 24, 2016 06:34 - CONCLUSION: Stable chest x-ray with underinflation and suspected atelectasis at the lung bases. Tarun Gerardo MD Chest CT 11/23/16 0000 Signed Impressions: Service Date/Time: Wednesday, November 23, 2016 09:38 - CONCLUSION: 1. Minimal patchy densities in lower lobes could be atelectasis or minimal inflammation. 2. No consolidation or mass. 3. Scarring the right upper lobe. 4. Nonspecific 8 mm nodular density right upper lobe posteriorly. Follow up CT chest in 6 months recommended for stability. Julius Ayala MD Objective Remarks GENERAL: 66-year-old female, critically ill currently orotracheally intubated SKIN: Warm and dry. No rash HEAD: Atraumatic. Normocephalic. EYES: Pupils equal and round about 2 mm bilaterally and reactive. No scleral icterus. No injection or drainage. ENT: No nasal bleeding or discharge. Mucous membranes pink and moist. NECK: Trachea midline. No JVD. Enlarged. Supple. Right IJ clean dry and intact CARDIOVASCULAR: Regular rate and rhythm. S1, S2. No S4. No murmur RESPIRATORY: Orally intubated on mechanical ventilation, no wheezing or crackles. Breath sounds equal bilaterally. Scattered rhonchi GASTROINTESTINAL: Abdomen soft, non-tender, obese. Hypoactive bowel sounds are appreciated hepatic and splenic margins not palpable. MUSCULOSKELETAL: Extremities with bilateral nonpitting edema. No obvious deformities. NEUROLOGICAL: Sedated on the ventilator on propofol drip. Withdraws to pain in all 4 extremities. Positive gag. Date of Insertion: Nov 22, 2016 Line: Central Venous Catheter Side: Right Location: Internal, Jugular A/P Assessment and Plan Neuro/Psych: History of depression/anxiety EtOH Patient is currently on propofol at 50 mcg/kg/m, versed 2.5mg/hr, fentanyl 100mcg/hr for sedation/ analgesia while intubated. Goal of RASS -2. Daily sedation vacation Vitamin bag daily 3 days for EtOH use. Started thiamine 100 daily 2/6 Monitor for DTs Currently holding home medication Effexor 75 mg by mouth daily. Resume when clinically indicated F/U CT head/EEG for altered mental status CV: Hypotension History of hypertension History of right carotid endarterectomy Elevated troponin IVF KVO Currently off Anthony-Synephrine. Elevated troponin. 2-D echo with normal LV function, moderate tricuspid regurgitation, minimal pulmonary hypertension with PASP 39 Resp: Acute hypoxic and hypercapnic respiratory failure COPD Tobaccoism Right upper lobe pulmonary nodule - follow-up CT scan 6 months recommended ACV 14/600/5/40 Ventilator bundle Bronchodilator therapy every 4 hours and as needed Pulmicort twice a day Solu-Medrol 40 mg IV every 8 hours Spontaneous breathing trials daily CT chest 11/24 revealed 8 mm nodule. Follow up CT scan in 6 months recommended Consult pulmonary for pulm nodule/COPD/ resp failure GI: Continue tube feeding with Jevity 1.5 goal 50 cc an hour Protonix for GI prophylaxis Colace/Senokot/MiraLAX twice a day for bowel regimen : Dorsey has been placed for accurate I's and O's in critically ill patient Endo: Every 6 hours sliding scale insulin with Accu-Cheks to maintain euglycemia. Moderate regimen. Renal: Creatinine currently within normal limits. Accurate I's and O's. Monitor urine output Heme: Leukocytosis Microcytic->normocytic anemia Follow-up CBC in AM. Monitor trends ID: Rocephin/Zithromax (started 2/3) Pertinent cultures 2/2 - Blood cultures 2 no growth 2/3 -sputum no growth Influenza negative FEN: Hypernatremia Hypophosphatemia - resolved 3 dosages of Neutra-Phos Replace electrolytes as clinically indicated per ICU protocol Started on free water 200 cc every 6 hours. MSK: Chronic neck pain History of lumbar laminectomy PT evaluate and treat Access -Right IJ CVL day 2/3 Prophylaxis - GI - Protonix - DVT - SCD/heparin subcutaneous Critical Care: The total critical care time was 35 minutes. Time to perform other separately billable procedures was not included in the critical care time. Heam Avila MD Nov 27, 2016 07:04
[2016-11-27] MEDS: RESP: BUDESONIDE 0.5 MG/2 ML NEB NEB SCH ×2 (07:23→20:32)
[2016-11-27] MEDS: LABETALOL HCL 100 MG/20 ML VIAL IV PUSH PRN ×2 (07:52→17:48)
[2016-11-27] MEDS: SODIUM CHLORIDE 0.9% FLUSH 5 ML FLUSH IV FLUSH SCH ×2 (07:53→20:06)
[2016-11-27] MEDS: CHLORHEXIDINE 0.12% (ORAL KIT) 15 ML CUP MT SCH ×2 (07:53→20:06)
[2016-11-27 08:09] LABS: SCAN/DIFF AUTO DIFF CONFIRMED
[2016-11-27] MEDS: POLYETHYLENE GLYCOL 17 GM PKG PO SCH ×2 (09:00→20:04)
[2016-11-27] MEDS: SENNOSIDES SYRUP 8.8 MG/5 ML CUP G-TUBE SCH ×2 (09:00→20:04)
[2016-11-27] MEDS: DOCUSATE SODIUM 100 MG/10 ML UDC G-TUBE SCH ×2 (09:00→20:04)
[2016-11-27] MEDS: SODIUM CHLORIDE 0.9% FLUSH 5 ML FLUSH IVF SCH (09:00)
[2016-11-27] MEDS: ARTIFICIAL TEARS OPTH SOLN 15 ML BTL EACH EYE SCH ×3 (10:10→17:27)
[2016-11-27] MEDS: AZITHROMYCIN INJ 500 MG in SODIUM CHLOR 0.9% 250 ML INJ 250 ML IV SCH (10:10)
[2016-11-27] MEDS: PANTOPRAZOLE SODIUM 40 MG VIAL IV SCH (10:10)
[2016-11-27] MEDS: HEPARIN SODIUM - SQ 10,000 UNITS/ML VIAL SQ SCH ×2 (10:11→20:05)
[2016-11-27] MEDS: THIAMINE HCL 100 MG TAB PO SCH (10:11)
[2016-11-27] MEDS: cefTRIAXone INJ 1,000 MG in SODIUM CHLORIDE 0.9% INJ 100 ML IV SCH (11:25)
[2016-11-27] MEDS: SODIUM CHLORIDE 0.9% FLUSH 5 ML FLUSH IV FLUSH PRN ×2 (13:34→17:54)
[2016-11-27] MEDS: MIDAZOLAM 100 MG/ML INJ 100 ML IV SCH (14:55)
--- NOTE | 2016-11-27 17:34 | HHI.PR ---
Subjective Remarks Sedated and on Vent support. FIO2 40 %. Output was OK. Objective Vital Signs Date Time Temp Pulse Resp B/P Pulse Ox O2 Delivery O2 Flow Rate FiO2 11/27/16 17:11 93 40 11/27/16 15:00 74 14 118/54 95 11/27/16 14:30 76 21 113/49 95 11/27/16 14:00 76 19 109/50 95 11/27/16 14:00 76 11/27/16 13:49 95 40 11/27/16 13:30 74 16 117/56 95 11/27/16 13:00 76 13 115/57 95 11/27/16 12:30 80 17 128/52 95 11/27/16 12:00 99.3 78 17 119/51 97 11/27/16 12:00 45 11/27/16 12:00 78 11/27/16 11:34 35 11/27/16 11:34 98 40 11/27/16 11:30 82 20 114/55 96 11/27/16 11:14 93 40 11/27/16 11:00 86 15 122/52 97 11/27/16 10:30 90 30 156/84 97 11/27/16 10:00 76 12 131/60 95 11/27/16 10:00 76 11/27/16 09:30 76 11 128/60 93 11/27/16 09:28 93 45 11/27/16 09:00 78 11 134/63 90 11/27/16 08:30 78 14 132/60 95 11/27/16 08:00 35 11/27/16 08:00 99.0 84 28 177/85 97 11/27/16 08:00 91 11/27/16 07:30 96 27 198/104 91 11/27/16 07:23 94 35 11/27/16 07:00 90 19 165/68 94 11/27/16 06:00 62 11/27/16 06:00 92 17 168/68 95 11/27/16 05:30 104 28 196/87 97 11/27/16 05:00 74 13 125/58 97 11/27/16 04:30 72 13 120/58 97 11/27/16 04:06 98 35 11/27/16 04:00 35 11/27/16 04:00 72 11/27/16 04:00 99.1 72 11 126/57 94 11/27/16 03:30 72 11 127/59 94 11/27/16 03:00 74 13 137/61 97 11/27/16 02:30 74 11 131/58 93 11/27/16 02:00 76 11/27/16 02:00 76 12 131/57 93 11/27/16 01:30 76 11 126/58 92 11/27/16 01:02 92 35 11/27/16 01:00 80 13 148/66 92 11/27/16 00:30 84 14 156/67 93 11/27/16 00:00 98.9 84 16 140/63 96 11/27/16 00:00 35 11/27/16 00:00 84 11/26/16 23:30 76 14 132/60 97 11/26/16 23:00 74 10 127/60 92 11/26/16 22:30 76 14 140/64 93 11/26/16 22:00 78 12 134/57 92 11/26/16 22:00 78 11/26/16 21:45 92 35 11/26/16 21:30 88 13 133/60 93 11/26/16 21:00 110 33 178/76 11/26/16 20:48 98 35 11/26/16 20:30 74 13 121/55 97 11/26/16 20:00 35 11/26/16 20:00 75 11/26/16 20:00 99.3 74 13 120/55 97 11/26/16 19:30 74 12 119/54 96 11/26/16 19:28 97 35 11/26/16 19:00 72 12 120/54 97 11/26/16 18:00 80 12 128/57 97 11/26/16 18:00 80 I/O 11/26/16 11/26/16 11/26/16 11/27/16 11/27/16 11/27/16 07:00 15:00 23:00 07:00 15:00 23:00 Intake Total 699 ml 1140 ml 833 ml 956 ml 1512 ml Output Total 400 ml 550 ml 550 ml 500 ml 500 ml Balance 299 ml 590 ml 283 ml 456 ml 1012 ml IV Total 167 ml 608 ml 226 ml 268 ml 753 ml Tube Feeding 132 ml 212 ml 207 ml 288 ml 239 ml Other 400 ml 320 ml 400 ml 400 ml 520 ml Output Urine Total 400 ml 550 ml 550 ml 500 ml 500 ml # Bowel Movements 1 1 1 2 2 Result Diagram: 11/27/1652311/27/16523 Objective Remarks GENERAL: This is a moderately overweight middle-aged white female who is sedated, intubated, assisting the ventilator. . HEENT: Head normocephalic. Pupils are reactive. Tongue moist. Throat has secretions. No inflammation. Nasal mucosa edematous. NECK: Supple without venous distension. No bruits or thyroid enlargement or lymphadenopathy. CHEST: Equal movements with increased AP diameter with expiratory wheezes throughout both lung topete. Prolonged expirations with no definite crackles. HEART: The heart sounds are irregular. S1, S2. No murmur. No S3. ABDOMEN: Soft, benign. No mass, no organomegaly or tenderness. Slightly bloated. Bowel sounds are faint and there is no organomegaly. EXTREMITIES: Decreased pulses. No calf tenderness. NEUROLOGIC: Reflexes are 1+ and the patient is sedated and unable to respond and she does withdraw to stimuli. Babinski negative. RECTAL: Exam is deferred. SKIN: No lesions noted. Assessment and Plan Assessment and Plan IMPRESSION 1. Hypoxic respiratory failure. 2. COPD with emphysema and chronic bronchitis. 3. History of depression and anxiety. 4. History of hypertension. Plan : 1. Wean Vent to CPAP FIo2 40 % 2. Cont Antibiotics ,Rocephin ,Zithromax. 3. Nebs qid , duoneb. 4. CXR,BMP in am. 5. Solumedrol 40 mg IV q6h. 6. Will reduce sedation to minimum. Esther Garcia MD Nov 27, 2016 17:34
[2016-11-28] VITALS (62 sets, daily range): BP systolic 118–212; BP diastolic 52–109; PULSE 67–110; RESP 11–38; TEMP 98.5–101.1; O2SAT 90–100
[2016-11-28] MEDS: INSULIN NovoLIN REGULAR SUPPLEMENTAL SCALE SQ SCH ×5 (00:27→23:51)
[2016-11-28] MEDS: PROPOFOL 1000 MG/100 ML INJ 100 ML IV SCH ×2 (03:35→08:30)
[2016-11-28] MEDS: RESP: ALBUTEROL 2.5 MG/IPRATROPIUM 0.5 MG NEB (SCH) INH ×6 (03:59→23:15)
[2016-11-28] MEDS: METOCLOPRAMIDE HCL 10 MG/2 ML VIAL IV PUSH SCH ×3 (06:00→20:44)
[2016-11-28] MEDS: FREE WATER G-TUBE SCH ×4 (06:00→23:46)
[2016-11-28] MEDS: methylPREDNISolone SOD SUCC 40 MG/1 ML VIAL IV PUSH SCH ×4 (06:00→23:46)
--- NOTE | 2016-11-28 06:24 | RADHPO ---
EXAM DATE/TIME: 11/28/2016 05:40 [facility] COMPARISON: CT THORAX W/O CONTRAST, November 23, 2016, 9:38. CHEST SINGLE AP, November 25, 2016, 6:27. INDICATIONS : Respiratory distress. MEDICAL HISTORY : Chronic obstructive pulmonary disease. coronary artery disease SURGICAL HISTORY : Cholecystectomy. ENCOUNTER: Subsequent ACUITY: 4 - 6 days PAIN SCORE: Non-responsive. LOCATION: Bilateral chest FINDINGS: Right jugular line, endotracheal tube and enteric tubes are again seen. There is cardiomegaly, and bi lateral effusions are not excluded. Lower lobe airspace disease. CONCLUSION: No significant change has occurred. Osiel Murillo MD on November 28, 2016 at 6:22 Board Certified Radiologist. This report was verified electronically.
--- NOTE | 2016-11-28 06:50 | HHI.CCPN ---
Subjective Remarks/Hospital Course 66-year-old female. Date of admission 11/22/2016. Past medical history includes COPD, EtOH, depression, chronic neck pain and peripheral neuropathy. She presented to [facility] with 2 day history of respiratory distress. No other information is currently available patient is intubated. She received 125 mg methylprednisolone and duonebs x3 by EVAC but arrived hypoxic, tachycardic tachypneic. She did not tolerate BiPAP due to anxiety. Received 3 additional DuoNeb therapies but still tired so decision was is made to emergently intubate patient. She received 20 mg etomidate and 100 mg succinylcholine successfully intubated. Chest x-ray revealed no acute findings. Patient will will have increased tidal volume and respiratory rate both PCO2. She has a leukocytosis of 18,000. 11/23: Arousable on the ventilator. High peak pressures noted on the ventilator. Tolerating tube feeds. Afebrile. Moves all 4 extremities spontaneous and quite agitatedon sedation vacation Subjective 11/24: Did not tolerate CPAP trials today. On high dose propofol drip at 50 mcg/ kg per minute secondary to severe agitation. Opens eyes but does not follow commands. Moves all 4 extremities spontaneously. Tolerating tube feeding. No bowel movement. 11/25: Remains sedated, orally intubated on mechanical ventilation. Tolerating tube feeds. Had BM overnight. 11/26: Remains sedated, orally intubated on mechanical ventilation. Tolerating tube feeds. 11/27: Remains sedated, orally intubated on mechanical ventilation. Failed C Pap trial yesterday. Tolerating tube feeds 11/28: Remains sedated, orally intubated on mechanical ventilation. Objective Vital Signs Date Time Temp Pulse Resp B/P Pulse Ox O2 Delivery O2 Flow Rate FiO2 11/28/16 06:30 70 19 134/62 100 11/28/16 04:45 98.5 11/28/16 04:00 40 Intake and Output 11/27/16 11/27/16 11/28/16 08:00 16:00 00:00 Intake Total 956 ml 1227 ml 441 ml Output Total 500 ml 500 ml 650 ml Balance 456 ml 727 ml -209 ml Result Diagram: 11/27/1652311/27/16 05 Imaging Last Impressions Chest X-Ray 11/24/16 0600 Signed Impressions: Service Date/Time: Thursday, November 24, 2016 06:34 - CONCLUSION: Stable chest x-ray with underinflation and suspected atelectasis at the lung bases. Tarun Gerardo MD Chest CT 11/23/16 0000 Signed Impressions: Service Date/Time: Wednesday, November 23, 2016 09:38 - CONCLUSION: 1. Minimal patchy densities in lower lobes could be atelectasis or minimal inflammation. 2. No consolidation or mass. 3. Scarring the right upper lobe. 4. Nonspecific 8 mm nodular density right upper lobe posteriorly. Follow up CT chest in 6 months recommended for stability. Julius Ayala MD Objective Remarks GENERAL: 66-year-old female, critically ill currently orotracheally intubated SKIN: Warm and dry. No rash HEAD: Atraumatic. Normocephalic. EYES: Pupils equal and round about 2 mm bilaterally and reactive. No scleral icterus. No injection or drainage. ENT: No nasal bleeding or discharge. Mucous membranes pink and moist. NECK: Trachea midline. No JVD. Enlarged. Supple. Right IJ clean dry and intact CARDIOVASCULAR: Regular rate and rhythm. S1, S2. No S4. No murmur RESPIRATORY: Orally intubated on mechanical ventilation, no wheezing or crackles. Breath sounds equal bilaterally. Scattered rhonchi GASTROINTESTINAL: Abdomen soft, non-tender, obese. Hypoactive bowel sounds are appreciated hepatic and splenic margins not palpable. MUSCULOSKELETAL: Extremities with bilateral nonpitting edema. No obvious deformities. NEUROLOGICAL: Sedated on the ventilator on propofol drip. Withdraws to pain in all 4 extremities. Positive gag. Date of Insertion: Nov 22, 2016 Line: Central Venous Catheter Side: Right Location: Internal, Jugular A/P Assessment and Plan Neuro/Psych: History of depression/anxiety EtOH Patient is currently on propofol at 50 mcg/kg/m, versed 2.5mg/hr, fentanyl 100mcg/hr for sedation/ analgesia while intubated. Goal of RASS -2. Daily sedation vacation Vitamin bag daily 3 days for EtOH use. Started thiamine 100 daily 2/6 Monitor for DTs Currently holding home medication Effexor 75 mg by mouth daily. Resume when clinically indicated CT head negative for bleed./EEG with burst suppression thought to be secondary to sedatives with some sharp waves on cutting down sedatives. Neurology recommended repeat EEG when off sedatives CV: Hypotension History of hypertension History of right carotid endarterectomy Elevated troponin IVF KVO Currently off Anthony-Synephrine. Elevated troponin. 2-D echo with normal LV function, moderate tricuspid regurgitation, minimal pulmonary hypertension with PASP 39 Resp: Acute hypoxic and hypercapnic respiratory failure COPD Tobaccoism Right upper lobe pulmonary nodule - follow-up CT scan 6 months recommended ACV 14/600/5/40 Ventilator bundle Bronchodilator therapy every 4 hours and as needed Pulmicort twice a day Solu-Medrol 40 mg IV every 6 hours Spontaneous breathing trials daily CT chest 11/24 revealed 8 mm nodule. Follow up CT scan in 6 months recommended Consult pulmonary for pulm nodule/COPD/ resp failure GI: Continue tube feeding with Jevity 1.5 goal 50 cc an hour Protonix for GI prophylaxis Colace/Senokot/MiraLAX twice a day for bowel regimen : Dorsey has been placed for accurate I's and O's in critically ill patient Endo: Every 6 hours sliding scale insulin with Accu-Cheks to maintain euglycemia. Moderate regimen. Renal: Creatinine currently within normal limits. Accurate I's and O's. Monitor urine output Heme: Leukocytosis Microcytic->normocytic anemia Follow-up CBC. Monitor trends ID: Rocephin/Zithromax (started 11/22). Stopped Zithromax on 11/28 Pertinent cultures 2/ - Blood cultures 2 no growth 2/ -sputum no growth Influenza negative FEN: Hypernatremia Hypophosphatemia - resolved 3 dosages of Neutra-Phos Replace electrolytes as clinically indicated per ICU protocol Started on free water 200 cc every 6 hours. MSK: Chronic neck pain History of lumbar laminectomy PT evaluate and treat Access -Right IJ CVL day 2 Prophylaxis - GI - Protonix - DVT - SCD/heparin subcutaneous Critical Care: The total critical care time was 35 minutes. Time to perform other separately billable procedures was not included in the critical care time. Hema Avila MD Nov 28, 2016 06:50
[2016-11-28] MEDS: RESP: BUDESONIDE 0.5 MG/2 ML NEB NEB SCH ×2 (07:58→19:16)
[2016-11-28] MEDS: PANTOPRAZOLE SODIUM 40 MG VIAL IV SCH (08:35)
[2016-11-28] MEDS: THIAMINE HCL 100 MG TAB PO SCH (08:35)
[2016-11-28] MEDS: CHLORHEXIDINE 0.12% (ORAL KIT) 15 ML CUP MT SCH ×2 (08:37→20:38)
[2016-11-28] MEDS: SENNOSIDES SYRUP 8.8 MG/5 ML CUP G-TUBE SCH ×2 (08:37→19:38)
[2016-11-28] MEDS: DOCUSATE SODIUM 100 MG/10 ML UDC G-TUBE SCH ×2 (08:37→19:37)
[2016-11-28] MEDS: ARTIFICIAL TEARS OPTH SOLN 15 ML BTL EACH EYE SCH ×3 (08:37→18:09)
[2016-11-28] MEDS: SODIUM CHLORIDE 0.9% FLUSH 5 ML FLUSH IV FLUSH SCH ×2 (08:38→20:38)
[2016-11-28] MEDS: SODIUM CHLORIDE 0.9% FLUSH 5 ML FLUSH IVF SCH (08:38)
[2016-11-28] MEDS: HEPARIN SODIUM - SQ 10,000 UNITS/ML VIAL SQ SCH ×2 (08:38→20:42)
[2016-11-28] MEDS: POLYETHYLENE GLYCOL 17 GM PKG PO SCH ×2 (08:47→19:38)
[2016-11-28] MEDS: fentaNYL DRIP 250 ML IV SCH (08:48)
[2016-11-28 09:10] LABS: AUTOMATED NEUTROPHIL # 5.3 TH/MM3 (1.8-7.7); BASOPHIL # 0.2 TH/MM3 (0-0.2); BASOPHIL % 1.6 % (0.0-2.0); EOSINOPHIL # 0.1 TH/MM3 (0-0.4); EOSINOPHIL % 1.4 % (0.0-4.0); HEMATOCRIT 27.8 % (35.0-46.0); LYMPH % 32.7 % (9.0-44.0); LYMPHOCYTE # 3.3 TH/MM3 (1.0-4.8); MEAN CORPUSCULAR HGB CONC 31.6 % (32.0-36.0); NEUT % 53.3 % (16.0-70.0); PLATELET COUNT 352 TH/MM3 (150-450); RED BLOOD COUNT 3.51 MIL/MM3 (4.00-5.30); RED CELL DISTRIBUTION WIDTH 18.4 % (11.6-17.2)
[2016-11-28 09:16] LABS: CHLORIDE 107 MEQ/L (98-107); POTASSIUM 4.3 MEQ/L (3.5-5.1); SODIUM (NA) 150 MEQ/L (136-145)
[2016-11-28 09:36] LABS: HEMO FLAGS AUTO DIFF
[2016-11-28 09:48] LABS: ALT (GPT) 61 U/L (10-53)
[2016-11-28 09:49] LABS: TOTAL BILIRUBIN ADULT 0.1 MG/DL (0.2-1.0)
[2016-11-28 09:51] LABS: ALKALINE PHOSPHATASE 89 U/L (45-117)
[2016-11-28 09:54] LABS: SCAN/DIFF AUTO DIFF CONFIRMED
[2016-11-28 09:58] LABS: ANION GAP 4 MEQ/L (5-15); BICARBONATE 38.7 MEQ/L (21.0-32.0); BLOOD UREA NITROGEN 24 MG/DL (7-18)
[2016-11-28 10:01] LABS: AST (GOT) 15 U/L (15-37); GLOMERULAR FILTRATION RATE 104 ML/MIN (>89)
--- NOTE | 2016-11-28 12:08 | HHI.PR ---
Subjective Remarks Sedated and on Vent support. FIO2 40 %. Output was OK. Objective Vital Signs Date Time Temp Pulse Resp B/P Pulse Ox O2 Delivery O2 Flow Rate FiO2 11/28/16 10:10 40 11/28/16 10:10 97 40 11/28/16 08:00 40 11/28/16 08:00 99 40 11/28/16 08:00 67 11/28/16 07:30 68 28 127/59 100 11/28/16 07:00 98.8 72 17 124/57 100 11/28/16 06:30 70 19 134/62 100 11/28/16 06:15 68 12 134/57 99 11/28/16 06:00 69 11/28/16 05:00 68 25 139/58 99 11/28/16 04:45 98.5 72 29 136/58 99 11/28/16 04:30 68 22 140/57 99 11/28/16 04:15 68 15 138/61 99 11/28/16 04:00 96 40 11/28/16 04:00 80 11/28/16 04:00 40 11/28/16 04:00 72 25 135/58 99 11/28/16 03:45 68 16 140/61 99 11/28/16 03:30 68 19 135/58 99 11/28/16 03:15 70 30 138/58 99 11/28/16 02:30 68 15 136/56 99 11/28/16 02:15 68 15 140/67 99 11/28/16 02:00 72 24 140/58 99 11/28/16 02:00 92 11/28/16 01:45 70 15 140/56 99 11/28/16 01:30 68 14 140/58 99 11/28/16 01:15 68 14 142/59 99 11/28/16 00:30 74 14 135/57 97 11/28/16 00:15 99.1 72 15 135/57 97 11/28/16 00:00 40 11/28/16 00:00 84 11/27/16 23:45 74 17 137/58 95 11/27/16 23:44 95 40 11/27/16 23:30 74 15 136/63 95 11/27/16 23:15 74 10 137/57 94 11/27/16 22:00 92 11/27/16 22:00 99.3 74 9 134/61 93 11/27/16 21:45 74 9 134/62 93 11/27/16 21:30 74 15 134/58 96 11/27/16 21:15 74 13 138/58 97 11/27/16 21:00 74 14 138/63 96 11/27/16 20:45 72 14 135/62 97 11/27/16 20:35 94 40 11/27/16 20:30 74 16 131/55 95 11/27/16 20:15 72 14 138/58 95 11/27/16 20:00 40 11/27/16 20:00 88 11/27/16 19:59 74 17 138/62 94 11/27/16 19:44 74 16 135/56 94 11/27/16 19:29 76 15 131/59 93 11/27/16 19:14 80 14 132/60 93 11/27/16 18:59 82 19 161/61 94 11/27/16 18:44 88 22 165/82 94 11/27/16 18:29 104 31 204/102 95 11/27/16 18:29 94 40 11/27/16 18:15 102 33 202/98 90 11/27/16 18:00 94 31 203/96 91 11/27/16 18:00 94 11/27/16 17:30 92 40 11/27/16 17:30 90 21 165/72 93 11/27/16 17:11 93 40 11/27/16 17:00 82 12 143/66 94 11/27/16 16:30 84 12 146/60 96 11/27/16 16:00 99.2 80 13 132/57 96 11/27/16 16:00 40 11/27/16 16:00 80 11/27/16 15:30 74 15 118/51 94 11/27/16 15:00 74 14 118/54 95 11/27/16 14:30 76 21 113/49 95 11/27/16 14:00 76 19 109/50 95 11/27/16 14:00 76 11/27/16 13:49 95 40 11/27/16 13:30 74 16 117/56 95 11/27/16 13:00 76 13 115/57 95 11/27/16 12:30 80 17 128/52 95 I/O 11/27/16 11/27/16 11/27/16 11/28/16 11/28/16 11/28/16 07:00 15:00 23:00 07:00 15:00 23:00 Intake Total 956 ml 1668 ml 1827 ml Output Total 500 ml 1150 ml 500 ml Balance 456 ml 518 ml 1327 ml IV Total 268 ml 849 ml 886 ml Tube Feeding 288 ml 239 ml 741 ml Other 400 ml 580 ml 200 ml Output Urine Total 500 ml 1150 ml 500 ml # Bowel Movements 2 3 Result Diagram: 11/28/1682911/28/16829 Objective Remarks GENERAL: This is a moderately overweight middle-aged white female who is sedated, intubated, assisting the ventilator. . HEENT: Head normocephalic. Pupils are reactive. Tongue moist. Throat has secretions. No inflammation. Nasal mucosa edematous. NECK: Supple without venous distension. No bruits or thyroid enlargement or lymphadenopathy. CHEST: Equal movements with increased AP diameter with expiratory wheezes throughout both lung topete. Prolonged expirations with no crackles. HEART: The heart sounds are regular. S1, S2. No murmur. No S3. ABDOMEN: Soft, benign. No mass, no organomegaly or tenderness. Slightly bloated. Bowel sounds are faint and there is no organomegaly. EXTREMITIES: Decreased pulses. No calf tenderness. NEUROLOGIC: Reflexes are 1+ and the patient is sedated and unable to respond and she does withdraw to stimuli. Babinski negative. RECTAL: Exam is deferred. SKIN: No lesions noted. Assessment and Plan Assessment and Plan IMPRESSION 1. Hypoxic respiratory failure. 2. COPD with emphysema and chronic bronchitis. 3. History of depression and anxiety. 4. History of hypertension. Plan : 1. Wean Vent to CPAP 5/15, FIo2 35 % 2. Cont Antibiotics ,Rocephin ,Zithromax. 3. Nebs qid , duoneb. 4. CBC,BMP in am. 5. Solumedrol 40 mg IV q6h. 6. Will reduce sedation to minimum. 7. Check NIF,FVC and ABG. 8. Tube feeds at 40 CC Esther Garcia MD Nov 28, 2016 12:08
[2016-11-28] MEDS: cefTRIAXone INJ 1,000 MG in SODIUM CHLORIDE 0.9% INJ 100 ML IV SCH (12:32)
[2016-11-28] MEDS: DEXMEDETOMIDINE 200 MCG in NS 50 ML/ ADMIX IV SCH ×5 (13:00→23:43)
[2016-11-28] MEDS: LABETALOL HCL 100 MG/20 ML VIAL IV PRN ×4 (13:41→22:22)
--- NOTE | 2016-11-28 15:16 | HHI.CCPN ---
Subjective Remarks/Hospital Course 66-year-old female. Date of admission 11/22/2016. Past medical history includes COPD, EtOH, depression, chronic neck pain and peripheral neuropathy. She presented to [facility] with 2 day history of respiratory distress. No other information is currently available patient is intubated. She received 125 mg methylprednisolone and duonebs x3 by EVAC but arrived hypoxic, tachycardic tachypneic. She did not tolerate BiPAP due to anxiety. Received 3 additional DuoNeb therapies but still tired so decision was is made to emergently intubate patient. She received 20 mg etomidate and 100 mg succinylcholine successfully intubated. Chest x-ray revealed no acute findings. Patient will will have increased tidal volume and respiratory rate both PCO2. She has a leukocytosis of 18,000. 2: Arousable on the ventilator. High peak pressures noted on the ventilator. Tolerating tube feeds. Afebrile. Moves all 4 extremities spontaneous and quite agitatedon sedation vacation Subjective 11/24: Did not tolerate CPAP trials today. On high dose propofol drip at 50 mcg/ kg per minute secondary to severe agitation. Opens eyes but does not follow commands. Moves all 4 extremities spontaneously. Tolerating tube feeding. No bowel movement. 2: Remains sedated, orally intubated on mechanical ventilation. Tolerating tube feeds. Had BM overnight. 11/26: Remains sedated, orally intubated on mechanical ventilation. Tolerating tube feeds. 11/27: Remains sedated, orally intubated on mechanical ventilation. Failed CPap trial yesterday. Tolerating tube feeds 11/28: Remains sedated, orally intubated on mechanical ventilation. Gets agitated with C Pap trials on lightening sedation. Objective Vital Signs Date Time Temp Pulse Resp B/P Pulse Ox O2 Delivery O2 Flow Rate FiO2 11/28/16 12:51 94 40 11/28/16 12:00 102 25 179/76 11/28/16 07:00 98.8 Intake and Output 11/27/16 11/27/16 11/28/16 08:00 16:00 00:00 Intake Total 956 ml 1227 ml 441 ml Output Total 500 ml 500 ml 650 ml Balance 456 ml 727 ml -209 ml Result Diagram: 11/28/1682911/28/16 08 Imaging Last Impressions Chest X-Ray 11/24/16 0600 Signed Impressions: Service Date/Time: Thursday, November 24, 2016 06:34 - CONCLUSION: Stable chest x-ray with underinflation and suspected atelectasis at the lung bases. Tarun Gerardo MD Chest CT 11/23/16 0000 Signed Impressions: Service Date/Time: Wednesday, November 23, 2016 09:38 - CONCLUSION: 1. Minimal patchy densities in lower lobes could be atelectasis or minimal inflammation. 2. No consolidation or mass. 3. Scarring the right upper lobe. 4. Nonspecific 8 mm nodular density right upper lobe posteriorly. Follow up CT chest in 6 months recommended for stability. Julius Ayala MD Objective Remarks GENERAL: 66-year-old female, critically ill currently orotracheally intubated SKIN: Warm and dry. No rash HEAD: Atraumatic. Normocephalic. EYES: Pupils equal and round about 2 mm bilaterally and reactive. No scleral icterus. No injection or drainage. ENT: No nasal bleeding or discharge. Mucous membranes pink and moist. NECK: Trachea midline. No JVD. Enlarged. Supple. Right IJ clean dry and intact CARDIOVASCULAR: Regular rate and rhythm. S1, S2. No S4. No murmur RESPIRATORY: Orally intubated on mechanical ventilation, no wheezing or crackles. Breath sounds equal bilaterally. Scattered rhonchi GASTROINTESTINAL: Abdomen soft, non-tender, obese. Hypoactive bowel sounds are appreciated hepatic and splenic margins not palpable. MUSCULOSKELETAL: Extremities with bilateral nonpitting edema. No obvious deformities. NEUROLOGICAL: Sedated on the ventilator on propofol drip. Withdraws to pain in all 4 extremities. Positive gag. Date of Insertion: Nov 22, 2016 Line: Central Venous Catheter Side: Right Location: Internal, Jugular A/P Assessment and Plan Neuro/Psych: History of depression/anxiety EtOH Patient is currently on propofol at 50 mcg/kg/m, versed 2.5mg/hr, fentanyl 100mcg/hr for sedation/ analgesia while intubated. Attempt Precedex to control agitation and titrated up Versed and fentanyl. Goal of RASS -2. Daily sedation vacation Vitamin bag daily 3 days for EtOH use. Started thiamine 100 daily 2/6 Monitor for DTs Currently holding home medication Effexor 75 mg by mouth daily. Resume when clinically indicated CT head negative for bleed./EEG with burst suppression thought to be secondary to sedatives with some sharp waves on cutting down sedatives. Neurology recommended repeat EEG when off sedatives CV: Hypotension History of hypertension History of right carotid endarterectomy Elevated troponin IVF KVO Currently off Anthony-Synephrine. Elevated troponin. 2-D echo with normal LV function, moderate tricuspid regurgitation, minimal pulmonary hypertension with PASP 39 Resp: Acute hypoxic and hypercapnic respiratory failure COPD Tobaccoism Right upper lobe pulmonary nodule - follow-up CT scan 6 months recommended ACV 14/600/5/40 Ventilator bundle Bronchodilator therapy every 4 hours and as needed Pulmicort twice a day Solu-Medrol 40 mg IV every 6 hours Spontaneous breathing trials daily CT chest 11/24 revealed 8 mm nodule. Follow up CT scan in 6 months recommended Consult pulmonary for pulm nodule/COPD/ resp failure GI: Continue tube feeding with Jevity 1.5 goal 50 cc an hour Protonix for GI prophylaxis Colace/Senokot/MiraLAX twice a day for bowel regimen : Dorsey has been placed for accurate I's and O's in critically ill patient Endo: Every 6 hours sliding scale insulin with Accu-Cheks to maintain euglycemia. Moderate regimen. Renal: Creatinine currently within normal limits. Accurate I's and O's. Monitor urine output Heme: Leukocytosis Microcytic->normocytic anemia Follow-up CBC. Monitor trends ID: Rocephin/Zithromax (started 11/22). Stopped Zithromax on 11/28 Pertinent cultures 2/ - Blood cultures 2 no growth 2/ -sputum no growth Influenza negative FEN: Hypernatremia Hypophosphatemia - resolved 3 dosages of Neutra-Phos Replace electrolytes as clinically indicated per ICU protocol Started on free water 200 cc every 6 hours. MSK: Chronic neck pain History of lumbar laminectomy PT evaluate and treat Access -Right IJ CVL day 2/ Prophylaxis - GI - Protonix - DVT - SCD/heparin subcutaneous Critical Care: The total critical care time was 35 minutes. Time to perform other separately billable procedures was not included in the critical care time. Hema Avila MD Nov 28, 2016 15:16
[2016-11-28] MEDS ORDERED: DEXMEDETOMIDINE 200 MCG in NS 50 ML/ ADMIX IV SCH (17:15)
[2016-11-28] MEDS: ACETAMINOPHEN 325 MG TAB PO PRN (20:43)
[2016-11-28] MEDS: SODIUM CHLORIDE 0.9% FLUSH 5 ML FLUSH IV FLUSH PRN (22:22)
[2016-11-28] MEDS ORDERED: MIDAZOLAM 100 MG/ML INJ 100 ML IV SCH (23:00)
[2016-11-28] MEDS ORDERED: fentaNYL DRIP 250 ML IV SCH (23:00)
[2016-11-29] VITALS (45 sets, daily range): BP systolic 112–194; BP diastolic 59–90; PULSE 62–104; RESP 9–44; TEMP 97.6–99; O2SAT 90–99
[2016-11-29] MEDS ORDERED: NITROGLYCERIN 2% OINT 1 GM PACKET TOPICAL PRN (01:15)
[2016-11-29] MEDS ORDERED: CLEVIDIPINE INJ 50 ML IV SCH (01:15)
[2016-11-29] MEDS: hydrALAZINE HCL 20 MG/ML VIAL IV PUSH PRN ×2 (01:19→08:01)
[2016-11-29] MEDS: DEXMEDETOMIDINE 200 MCG in NS 50 ML/ ADMIX IV SCH ×9 (01:54→21:35)
[2016-11-29] MEDS: RESP: ALBUTEROL 2.5 MG/IPRATROPIUM 0.5 MG NEB (SCH) INH ×6 (03:37→23:39)
[2016-11-29] MEDS: FREE WATER G-TUBE SCH ×3 (06:00→17:24)
[2016-11-29] MEDS: INSULIN NovoLIN REGULAR SUPPLEMENTAL SCALE SQ SCH ×3 (06:56→17:34)
[2016-11-29] MEDS: METOCLOPRAMIDE HCL 10 MG/2 ML VIAL IV PUSH SCH ×3 (06:56→21:23)
[2016-11-29] MEDS: methylPREDNISolone SOD SUCC 40 MG/1 ML VIAL IV PUSH SCH ×4 (06:56→22:25)
[2016-11-29] MEDS: RESP: BUDESONIDE 0.5 MG/2 ML NEB NEB SCH ×2 (07:33→19:46)
[2016-11-29] MEDS: SENNOSIDES SYRUP 8.8 MG/5 ML CUP G-TUBE SCH ×2 (09:00→21:21)
[2016-11-29] MEDS: DOCUSATE SODIUM 100 MG/10 ML UDC G-TUBE SCH ×2 (09:00→21:22)
[2016-11-29] MEDS: POLYETHYLENE GLYCOL 17 GM PKG PO SCH ×2 (09:00→21:23)
[2016-11-29] MEDS: THIAMINE HCL 100 MG TAB PO SCH (09:45)
[2016-11-29] MEDS: cefTRIAXone INJ 1,000 MG in SODIUM CHLORIDE 0.9% INJ 100 ML IV SCH (09:48)
[2016-11-29] MEDS: PANTOPRAZOLE SODIUM 40 MG VIAL IV SCH (09:49)
[2016-11-29] MEDS: HEPARIN SODIUM - SQ 10,000 UNITS/ML VIAL SQ SCH ×2 (09:49→21:21)
[2016-11-29] MEDS: SODIUM CHLORIDE 0.9% FLUSH 5 ML FLUSH IV FLUSH SCH ×2 (09:52→21:22)
[2016-11-29] MEDS: SODIUM CHLORIDE 0.9% FLUSH 5 ML FLUSH IVF SCH (09:56)
[2016-11-29] MEDS: ARTIFICIAL TEARS OPTH SOLN 15 ML BTL EACH EYE SCH ×3 (09:57→17:22)
[2016-11-29] MEDS: LORazepam 2 MG/ML VIAL IV PUSH PRN ×2 (12:01→16:03)
[2016-11-29 12:13] LABS: BLOOD GAS BASE EXCESS 9.3 mmol/L (-2-2); BLOOD GAS CARBOXYHEMOGLOBIN 1.5 % (0-4); BLOOD GAS HCO3 33 mmol/L (22-26); BLOOD GAS METHEMOGLOBIN 1.1 % (0-2); BLOOD GAS O2 HGB SATURATION 93 % (90-100); BLOOD GAS OXYGEN CONTENT 12.1 Vol % (12.0-20.0); BLOOD GAS PCO2 47 mmHg (38-42); BLOOD GAS PO2 76 mmHg (61-120); BLOOD GAS TOTAL HGB 9.2 G/DL (12.0-16.0); CRITICAL VALUE NO; OXYGEN DEVICE VENT
[2016-11-29 12:14] LABS: DRAW SITE LT RADIAL; FIO2 35 %; NUMBER OF ARTERIAL PUNCTURES 1; STAT NO; ULNAR PULSE PRESENT; VENT SETTINGS AC10/VT550/PEEP+5
[2016-11-29 12:48] LABS: BASOPHIL # 0.3 TH/MM3 (0-0.2); BASOPHIL % 3.6 % (0.0-2.0); LYMPH % 8.6 % (9.0-44.0); LYMPHOCYTE # 0.7 TH/MM3 (1.0-4.8); MEAN CELL VOLUME 78.8 FL (80.0-100.0); MEAN CORPUSCULAR HEMOGLOBIN 24.7 PG (27.0-34.0); MEAN CORPUSCULAR HGB CONC 31.3 % (32.0-36.0); MONO % 9.7 % (0.0-8.0); NEUT % 78.1 % (16.0-70.0); PLATELET COUNT 350 TH/MM3 (150-450); RED BLOOD COUNT 3.69 MIL/MM3 (4.00-5.30); RED CELL DISTRIBUTION WIDTH 18.5 % (11.6-17.2); WHITE BLOOD COUNT 7.7 TH/MM3 (4.0-11.0)
[2016-11-29 12:49] LABS: HEMO FLAGS AUTO DIFF
[2016-11-29 13:01] LABS: CHLORIDE 105 MEQ/L (98-107); POTASSIUM 3.7 MEQ/L (3.5-5.1); SODIUM (NA) 147 MEQ/L (136-145)
[2016-11-29 13:05] LABS: ANION GAP 7 MEQ/L (5-15); BICARBONATE 35.2 MEQ/L (21.0-32.0); BLOOD UREA NITROGEN 25 MG/DL (7-18); MAGNESIUM 2.6 MG/DL (1.5-2.5)
[2016-11-29 13:08] LABS: ALT (GPT) 51 U/L (10-53); AST (GOT) 13 U/L (15-37); GLOMERULAR FILTRATION RATE 116 ML/MIN (>89)
[2016-11-29 13:09] LABS: SCAN/DIFF AUTO DIFF CONFIRMED; TOTAL BILIRUBIN ADULT 0.2 MG/DL (0.2-1.0)
[2016-11-29 13:11] LABS: ALKALINE PHOSPHATASE 86 U/L (45-117)
[2016-11-29] MEDS: CHLORHEXIDINE 0.12% (ORAL KIT) 15 ML CUP MT SCH ×2 (14:09→20:29)
[2016-11-29 16:09] LABS: BLOOD GAS BASE EXCESS 7.4 mmol/L (-2-2); BLOOD GAS CARBOXYHEMOGLOBIN 1.6 % (0-4); BLOOD GAS HCO3 31 mmol/L (22-26); BLOOD GAS METHEMOGLOBIN 0.7 % (0-2); BLOOD GAS O2 HGB SATURATION 95 % (90-100); BLOOD GAS OXYGEN CONTENT 13.2 Vol % (12.0-20.0); BLOOD GAS PCO2 41 mmHg (38-42); BLOOD GAS PO2 80 mmHg (61-120); BLOOD GAS TOTAL HGB 9.8 G/DL (12.0-16.0); CRITICAL VALUE NO
[2016-11-29 16:10] LABS: DRAW SITE LT RADIAL; FIO2 40 %; NUMBER OF ARTERIAL PUNCTURES 1; OXYGEN DEVICE VENT; STAT NO; ULNAR PULSE PRESENT; VENT SETTINGS PSV10/PEEP+5
--- NOTE | 2016-11-29 16:54 | HHI.CCPN ---
Subjective Remarks/Hospital Course 66-year-old female. Date of admission 11/22/2016. Past medical history includes COPD, EtOH, depression, chronic neck pain and peripheral neuropathy. She presented to [facility] with 2 day history of respiratory distress. No other information is currently available patient is intubated. She received 125 mg methylprednisolone and duonebs x3 by EVAC but arrived hypoxic, tachycardic tachypneic. She did not tolerate BiPAP due to anxiety. Received 3 additional DuoNeb therapies but still tired so decision was is made to emergently intubate patient. She received 20 mg etomidate and 100 mg succinylcholine successfully intubated. Chest x-ray revealed no acute findings. Patient will will have increased tidal volume and respiratory rate both PCO2. She has a leukocytosis of 18,000. 2: Arousable on the ventilator. High peak pressures noted on the ventilator. Tolerating tube feeds. Afebrile. Moves all 4 extremities spontaneous and quite agitatedon sedation vacation Subjective 11/24: Did not tolerate CPAP trials today. On high dose propofol drip at 50 mcg/ kg per minute secondary to severe agitation. Opens eyes but does not follow commands. Moves all 4 extremities spontaneously. Tolerating tube feeding. No bowel movement. 11/25: Remains sedated, orally intubated on mechanical ventilation. Tolerating tube feeds. Had BM overnight. 11/26: Remains sedated, orally intubated on mechanical ventilation. Tolerating tube feeds. 11/27: Remains sedated, orally intubated on mechanical ventilation. Failed CPap trial yesterday. Tolerating tube feeds 11/28: Remains sedated, orally intubated on mechanical ventilation. Gets agitated with C Pap trials on lightening sedation. 11/29 Patient remains sedated with Precedex and intubated. On CPAP 07/24 with 40% FIO2. Patient is able to open eyes, doesn't follow commands. Given Ativan 1mg @1600. Tmax 101.1 yesterday Objective Vital Signs Date Time Temp Pulse Resp B/P Pulse Ox O2 Delivery O2 Flow Rate FiO2 11/29/16 16:16 84 25 148/68 96 11/29/16 16:00 97.9 11/29/16 14:20 40 Intake and Output 11/28/16 11/28/16 11/29/16 08:00 16:00 00:00 Intake Total 1827 ml 781 ml 625 ml Output Total 500 ml 900 ml 450 ml Balance 1327 ml -119 ml 175 ml Result Diagram: 11/29/16 1210 11/29/16 1210 Other Results Laboratory Tests Test 11/29/16 11/29/16 11/29/16 12:05 12:10 16:03 Blood Gas Puncture Site LT RADIAL LT RADIAL Blood Gas Patient Temperature 37.0 37.0 Blood Gas HCO3 33 mmol/L 31 mmol/L Blood Gas Base Excess 9.3 mmol/L 7.4 mmol/L Blood Gas Oxygen Saturation 93 % 95 % Arterial Blood pH 7.47 7.49 Arterial Blood Partial 47 mmHg 41 mmHg Pressure CO2 Arterial Blood Partial 76 mmHg 80 mmHg Pressure O2 Arterial Blood Oxygen Content 12.1 Vol % 13.2 Vol % Arterial Blood 1.5 % 1.6 % Carboxyhemoglobin Arterial Blood Methemoglobin 1.1 % 0.7 % Blood Gas Hemoglobin 9.2 G/DL 9.8 G/DL Oxygen Delivery Device VENT VENT Blood Gas Ventilator Setting AC10/VT550/PEEP+5 PSV10/PEEP+5 Blood Gas Inspired Oxygen 35 % 40 % White Blood Count 7.7 TH/MM3 Red Blood Count 3.69 MIL/MM3 Hemoglobin 9.1 GM/DL Hematocrit 29.0 % Mean Corpuscular Volume 78.8 FL Mean Corpuscular Hemoglobin 24.7 PG Mean Corpuscular Hemoglobin 31.3 % Concent Red Cell Distribution Width 18.5 % Platelet Count 350 TH/MM3 Mean Platelet Volume 9.0 FL Neutrophils (%) (Auto) 78.1 % Lymphocytes (%) (Auto) 8.6 % Monocytes (%) (Auto) 9.7 % Eosinophils (%) (Auto) 0.0 % Basophils (%) (Auto) 3.6 % Neutrophils # (Auto) 6.0 TH/MM3 Lymphocytes # (Auto) 0.7 TH/MM3 Monocytes # (Auto) 0.7 TH/MM3 Eosinophils # (Auto) 0.0 TH/MM3 Basophils # (Auto) 0.3 TH/MM3 CBC Comment AUTO DIFF Differential Comment AUTO DIFF CONFIRMED Sodium Level 147 MEQ/L Potassium Level 3.7 MEQ/L Chloride Level 105 MEQ/L Carbon Dioxide Level 35.2 MEQ/L Anion Gap 7 MEQ/L Blood Urea Nitrogen 25 MG/DL Creatinine 0.53 MG/DL Estimat Glomerular Filtration 116 ML/MIN Rate Random Glucose 241 MG/DL Calcium Level 8.7 MG/DL Phosphorus Level 2.7 MG/DL Magnesium Level 2.6 MG/DL Total Bilirubin 0.2 MG/DL Aspartate Amino Transf 13 U/L (AST/SGOT) Alanine Aminotransferase 51 U/L (ALT/SGPT) Alkaline Phosphatase 86 U/L Total Protein 5.7 GM/DL Albumin 2.2 GM/DL Imaging Last Impressions Chest X-Ray 11/28/16 06 Signed Impressions: Service Date/Time: November 05:40 - CONCLUSION: No significant change has occurred. Osiel Murillo MD Head CT 11/25/16 06 Signed Impressions: Service Date/Time: Friday, November 25, 2016 08:06 - CONCLUSION: Minimal sinus disease otherwise negative. Bebeto Donis MD FACR Chest CT 11/23/16 0000 Signed Impressions: Service Date/Time: Wednesday, November 23, 2016 09:38 - CONCLUSION: 1. Minimal patchy densities in lower lobes could be atelectasis or minimal inflammation. 2. No consolidation or mass. 3. Scarring the right upper lobe. 4. Nonspecific 8 mm nodular density right upper lobe posteriorly. Follow up CT chest in 6 months recommended for stability. Julius Ayala MD Objective Remarks GENERAL: 66-year-old female, critically ill currently orotracheally intubated SKIN: Warm and dry. No rash HEAD: Atraumatic. Normocephalic. EYES: Pupils equal and round about 2 mm bilaterally and reactive. No scleral icterus. No injection or drainage. ENT: No nasal bleeding or discharge. Mucous membranes pink and moist. NECK: Trachea midline. No JVD. Enlarged. Supple. Right IJ clean dry and intact CARDIOVASCULAR: Regular rate and rhythm. S1, S2. No S4. No murmur RESPIRATORY: Orally intubated on mechanical ventilation, no wheezing or crackles. Breath sounds equal bilaterally. Scattered rhonchi GASTROINTESTINAL: Abdomen soft, non-tender, obese. Hypoactive bowel sounds are appreciated hepatic and splenic margins not palpable. MUSCULOSKELETAL: Extremities with bilateral nonpitting edema. No obvious deformities. NEUROLOGICAL: Sedated on the ventilator on propofol drip. Withdraws to pain in all 4 extremities. Positive gag. Date of Insertion: Nov 22, 2016 Line: Central Venous Catheter Side: Right Location: Internal, Jugular A/P Assessment and Plan Neuro/Psych: History of depression/anxiety EtOH On Precedex drip to facilitate with weaning trials. Vitamin bag daily 3 days for EtOH use. Continue thiamine 100 daily Monitor for DTs Currently holding home medication Effexor 75 mg by mouth daily. Resume when clinically indicated CT head negative for bleed./EEG with burst suppression thought to be secondary to sedatives with some sharp waves on cutting down sedatives. Neurology recommended repeat EEG when off sedatives Will repeat EEG. CV: Hypotension History of hypertension History of right carotid endarterectomy Elevated troponin Monitor HR and BP keep MAP>65mmHg. On Norvasc 10mg daily 2-D echo with normal LV function, moderate tricuspid regurgitation, minimal pulmonary hypertension with PASP 39 Resp: Acute hypoxic and hypercapnic respiratory failure COPD Tobaccoism Right upper lobe pulmonary nodule - follow-up CT scan 6 months recommended ACV 14/600/5/40 Continue with vent support keep sat >92% Ventilator bundle Bronchodilator therapy every 4 hours and as needed Pulmicort twice a day Solu-Medrol 40 mg IV every 6 hours Spontaneous breathing trials daily CT chest 11/24 revealed 8 mm nodule. Follow up CT scan in 6 months recommended Consult pulmonary for pulm nodule/COPD/ resp failure GI: Continue tube feeding with Jevity 1.5 goal 50 cc an hour Protonix for GI prophylaxis Colace/Senokot/MiraLAX twice a day for bowel regimen : Monitor renal function, I/O's, electrolytes replacement per protocol. Diurese with Bumex 1mg x1 On free water 200 cc every 6 hours. Monitor sodium level. Endo: Every 6 hours sliding scale insulin with Accu-Cheks to maintain euglycemia. Moderate regimen. Heme: Anemia Monitor CBC ID: Rocephin/Zithromax (started 11/22). Stopped Zithromax on 11/28 Continue with Rocephin monitor for signs of infections ( Fever, WBC) Pertinent cultures 2/2 - Blood cultures 2 no growth 2/3 -sputum no growth Influenza negative MSK: Chronic neck pain History of lumbar laminectomy PT evaluate and treat Access -Right IJ CVL day 2 Prophylaxis - GI - Protonix - DVT - SCD/heparin subcutaneous Critical Care: The total critical care time was 30 minutes. Time to perform other separately billable procedures was not included in the critical care time. Lonny Booker MD Nov 29, 2016 16:54
[2016-11-29] MEDS ORDERED: BUMETANIDE INJ 1 MG/4 ML VIAL IV PUSH ONE (17:15)
--- NOTE | 2016-11-29 18:14 | HHI.PR ---
Subjective Remarks Remains on Vent support. FIO2 40 %. Restless but responds to commands and questions. Output was OK.ABG's are good. Objective Vital Signs Date Time Temp Pulse Resp B/P Pulse Ox O2 Delivery O2 Flow Rate FiO2 11/29/16 17:20 94 40 11/29/16 17:00 76 25 143/65 93 11/29/16 16:16 84 25 148/68 96 11/29/16 16:00 40 11/29/16 16:00 98 11/29/16 16:00 97.9 96 32 182/83 98 11/29/16 15:40 90 40 11/29/16 15:35 40 11/29/16 15:00 102 32 91 11/29/16 14:20 35 11/29/16 14:20 96 35 11/29/16 14:00 78 16 146/65 94 11/29/16 14:00 78 11/29/16 13:59 35 11/29/16 13:57 94 35 11/29/16 13:45 40 11/29/16 13:00 66 12 144/67 93 11/29/16 12:00 35 11/29/16 12:00 70 16 151/67 97 11/29/16 11:30 74 19 155/68 97 11/29/16 11:20 95 35 11/29/16 11:15 86 25 160/71 98 11/29/16 11:00 80 14 156/74 93 11/29/16 10:15 74 15 150/70 93 11/29/16 10:00 80 11/29/16 10:00 80 18 139/64 93 11/29/16 09:30 80 17 153/70 94 11/29/16 09:15 88 21 152/68 98 11/29/16 09:10 96 35 11/29/16 09:10 35 11/29/16 09:07 104 44 182/85 96 11/29/16 08:53 70 20 151/67 93 11/29/16 08:30 70 18 112/59 96 11/29/16 08:00 97.6 68 18 167/77 97 11/29/16 08:00 68 11/29/16 07:35 35 11/29/16 07:35 95 35 11/29/16 07:35 40 11/29/16 07:00 68 15 139/66 96 2/10/17 06:00 68 11/29/16 06:00 62 12 160/80 97 11/29/16 05:00 66 13 157/76 97 11/29/16 04:25 99 40 11/29/16 04:00 63 11/29/16 04:00 98.1 68 14 149/71 99 11/29/16 04:00 40 11/29/16 03:00 68 15 139/68 95 11/29/16 02:00 68 12 139/66 95 11/29/16 02:00 68 11/29/16 01:30 68 12 143/68 96 11/29/16 01:05 97 40 11/29/16 01:00 66 9 194/84 97 11/29/16 00:30 68 10 194/87 97 11/29/16 00:00 40 11/29/16 00:00 78 11/29/16 00:00 99.0 72 11 193/90 99 11/28/16 23:30 72 12 198/92 99 11/28/16 22:15 97 40 11/28/16 22:00 78 13 187/88 97 11/28/16 22:00 78 11/28/16 21:00 82 14 172/85 95 11/28/16 20:30 84 18 169/79 96 11/28/16 20:00 40 11/28/16 20:00 84 11/28/16 19:45 101.1 82 18 183/83 97 11/28/16 19:30 84 24 182/84 97 11/28/16 19:15 94 40 11/28/16 19:15 86 30 178/75 93 11/28/16 19:00 94 25 196/104 94 11/28/16 18:45 88 24 181/73 92 I/O 11/28/16 11/28/16 11/28/16 11/29/16 11/29/16 11/29/16 07:00 15:00 23:00 07:00 15:00 23:00 Intake Total 1827 ml 781 ml 625 ml 750 ml 1271 ml Output Total 500 ml 900 ml 450 ml 550 ml 750 ml Balance 1327 ml -119 ml 175 ml 200 ml 521 ml Intake Oral 0 ml 0 ml IV Total 886 ml 337 ml 125 ml 200 ml 475 ml Tube Feeding 741 ml 444 ml 300 ml 350 ml 596 ml Other 200 ml 200 ml 200 ml 200 ml Output Urine Total 500 ml 900 ml 450 ml 550 ml 750 ml # Bowel Movements 1 1 0 1 Result Diagram: 11/29/16 1210 11/29/16 1210 Objective Remarks GENERAL: This is a moderately overweight middle-aged white female intubated, assisting the ventilator. . HEENT: Head normocephalic. Pupils are reactive. Tongue moist. Throat has secretions. No inflammation. Nasal mucosa edematous. NECK: Supple without venous distension. No bruits or thyroid enlargement or lymphadenopathy. CHEST: Equal movements with increased AP diameter with expiratory wheezes throughout both lung topete. Prolonged expirations with no crackles. HEART: The heart sounds are regular. S1, S2. No murmur. No S3. ABDOMEN: Soft, benign. No mass, no organomegaly or tenderness. Slightly bloated. Bowel sounds are faint and there is no organomegaly. EXTREMITIES: Decreased pulses. No calf tenderness. NEUROLOGIC: Reflexes are 1+ and the patient is lethargic . Babinski negative. RECTAL: Exam is deferred. SKIN: No lesions noted. Assessment and Plan Assessment and Plan IMPRESSION 1. Hypoxic respiratory failure. 2. COPD with emphysema and chronic bronchitis. 3. History of depression and anxiety. 4. History of hypertension. Plan : 1. Wean Vent in am to CPAP /15, FIo2 35 % 2. Cont Antibiotics ,Rocephin ,Zithromax. 3. Nebs qid , duoneb. 4. CBC,BMP in am. 5. Solumedrol 40 mg IV q8h. 6. Will reduce sedation to minimum. 7. Check NIF,FVC and ABG. 8. Tube feeds at 40 CC 9. Reduce sedation. Esther Garcia MD Nov 29, 2016 18:14
[2016-11-30] VITALS (49 sets, daily range): BP systolic 137–180; BP diastolic 54–92; PULSE 76–118; RESP 12–30; TEMP 97.6–100.8; O2SAT 92–100
[2016-11-30] MEDS: INSULIN NovoLIN REGULAR SUPPLEMENTAL SCALE SQ SCH ×4 (01:00→18:09)
[2016-11-30] MEDS: LORazepam 2 MG/ML VIAL IV PUSH PRN ×5 (01:24→21:06)
[2016-11-30] MEDS: SODIUM CHLORIDE 0.9% FLUSH 5 ML FLUSH IV FLUSH PRN ×2 (01:25→06:04)
[2016-11-30] MEDS: DEXMEDETOMIDINE 200 MCG in NS 50 ML/ ADMIX IV SCH ×5 (02:18→21:10)
[2016-11-30] MEDS: RESP: ALBUTEROL 2.5 MG/IPRATROPIUM 0.5 MG NEB (SCH) INH ×2 (03:32→07:41)
[2016-11-30] MEDS: FREE WATER G-TUBE SCH ×4 (05:59→17:26)
[2016-11-30] MEDS: METOCLOPRAMIDE HCL 10 MG/2 ML VIAL IV PUSH SCH ×3 (05:59→21:07)
[2016-11-30 06:01] LABS: AUTOMATED NEUTROPHIL # 6.5 TH/MM3 (1.8-7.7); BASOPHIL # 0.4 TH/MM3 (0-0.2); BASOPHIL % 4.2 % (0.0-2.0); HEMATOCRIT 30.1 % (35.0-46.0); LYMPH % 9.1 % (9.0-44.0); LYMPHOCYTE # 0.8 TH/MM3 (1.0-4.8); MEAN CORPUSCULAR HEMOGLOBIN 24.5 PG (27.0-34.0); MEAN CORPUSCULAR HGB CONC 31.5 % (32.0-36.0); MONO % 11.5 % (0.0-8.0); NEUT % 75.2 % (16.0-70.0); PLATELET COUNT 352 TH/MM3 (150-450); RED BLOOD COUNT 3.87 MIL/MM3 (4.00-5.30); RED CELL DISTRIBUTION WIDTH 18.3 % (11.6-17.2); WHITE BLOOD COUNT 8.7 TH/MM3 (4.0-11.0)
[2016-11-30] MEDS: hydrALAZINE HCL 20 MG/ML VIAL IV PUSH PRN ×3 (06:04→12:16)
[2016-11-30 06:06] LABS: HEMO FLAGS DIFF FINAL
[2016-11-30 06:13] LABS: CHLORIDE 104 MEQ/L (98-107); POTASSIUM 3.8 MEQ/L (3.5-5.1); SODIUM (NA) 145 MEQ/L (136-145)
[2016-11-30 06:18] LABS: ANION GAP 8 MEQ/L (5-15); BICARBONATE 33.4 MEQ/L (21.0-32.0); BLOOD UREA NITROGEN 25 MG/DL (7-18); MAGNESIUM 2.4 MG/DL (1.5-2.5)
[2016-11-30 06:20] LABS: ALT (GPT) 43 U/L (10-53); AST (GOT) 12 U/L (15-37); GLOMERULAR FILTRATION RATE 97 ML/MIN (>89)
[2016-11-30 06:22] LABS: TOTAL BILIRUBIN ADULT 0.3 MG/DL (0.2-1.0)
[2016-11-30 06:23] LABS: ALKALINE PHOSPHATASE 86 U/L (45-117)
--- NOTE | 2016-11-30 06:39 | RADHPO ---
EXAM DATE/TIME: 11/30/2016 06:20 [place] COMPARISON: No previous studies available for comparison. INDICATIONS : Shortness of breath. MEDICAL HISTORY : Chronic obstructive pulmonary disease. CAD SURGICAL HISTORY : Cholecystectomy. ENCOUNTER: Subsequent ACUITY: 1 week PAIN SCORE: Non-responsive. LOCATION: Bilateral chest FINDINGS: Bibasilar consolidation with small effusions persist, not significantly changed on the right, mildly worse on the left. No pneumothorax seen. Heart size stable, within normal limits. Endotracheal tube tip is about 4 cm above the coreen. There is a nasogastric tube coursing into the s tomach. Right IJ central venous catheter seen, tip in the superior vena cava. CONCLUSION: Bibasilar consolidation and small effusions, stable on the right and modestly worse on the left. Tarun Salamanca MD on November 30, 2016 at 6:37 Board Certified Radiologist. This report was verified electronically.
[2016-11-30] MEDS: methylPREDNISolone SOD SUCC 40 MG/1 ML VIAL IV PUSH SCH ×3 (07:32→23:34)
[2016-11-30] MEDS: THIAMINE HCL 100 MG TAB PO SCH (07:33)
[2016-11-30] MEDS: PANTOPRAZOLE SODIUM 40 MG VIAL IV SCH (07:33)
[2016-11-30] MEDS: SODIUM CHLORIDE 0.9% FLUSH 5 ML FLUSH IVF SCH (07:34)
[2016-11-30] MEDS: SODIUM CHLORIDE 0.9% FLUSH 5 ML FLUSH IV FLUSH SCH ×2 (07:34→21:20)
[2016-11-30] MEDS: RESP: BUDESONIDE 0.5 MG/2 ML NEB NEB SCH ×2 (07:41→19:26)
[2016-11-30] MEDS: POLYETHYLENE GLYCOL 17 GM PKG PO SCH ×2 (09:00→21:19)
[2016-11-30] MEDS: DOCUSATE SODIUM 100 MG/10 ML UDC G-TUBE SCH ×2 (09:00→21:19)
[2016-11-30] MEDS: ARTIFICIAL TEARS OPTH SOLN 15 ML BTL EACH EYE SCH ×4 (09:00→21:09)
[2016-11-30] MEDS: SENNOSIDES SYRUP 8.8 MG/5 ML CUP G-TUBE SCH ×2 (09:00→21:20)
[2016-11-30 09:48] LABS: BLOOD GAS BASE EXCESS 9.3 mmol/L (-2-2); BLOOD GAS CARBOXYHEMOGLOBIN 1.7 % (0-4); BLOOD GAS HCO3 33 mmol/L (22-26); BLOOD GAS METHEMOGLOBIN 0.7 % (0-2); BLOOD GAS O2 HGB SATURATION 88 % (90-100); BLOOD GAS OXYGEN CONTENT 12.2 Vol % (12.0-20.0); BLOOD GAS PCO2 39 mmHg (38-42); BLOOD GAS PO2 56 mmHg (61-120); BLOOD GAS TOTAL HGB 9.8 G/DL (12.0-16.0); CRITICAL VALUE YES
[2016-11-30 09:49] LABS: DRAW SITE RT RADIAL; FIO2 35 %; NUMBER OF ARTERIAL PUNCTURES 1; OXYGEN DEVICE VENTILATOR; STAT NO; ULNAR PULSE PRESENT; VENT SETTINGS CPAP5/PS12
[2016-11-30] MEDS: cefTRIAXone INJ 1,000 MG in SODIUM CHLORIDE 0.9% INJ 100 ML IV SCH (10:56)
[2016-11-30] MEDS: HEPARIN SODIUM - SQ 10,000 UNITS/ML VIAL SQ SCH ×2 (10:56→21:07)
[2016-11-30] MEDS: CHLORHEXIDINE 0.12% (ORAL KIT) 15 ML CUP MT SCH ×2 (11:12→21:11)
[2016-11-30] MEDS: ACETAMINOPHEN 325 MG TAB PO PRN (11:13)
[2016-11-30] MEDS: RESP: ALBUTEROL 2.5 MG/IPRATROPIUM 0.5 MG NEB (PRN) INH (11:29)
[2016-11-30] MEDS ORDERED: RESP: ALBUTEROL 2.5 MG/IPRATROPIUM 0.5 MG NEB (PRN) NEB (12:30)
[2016-11-30] MEDS: FUROSEMIDE 20 MG/2 ML VIAL IV PUSH SCH ×2 (13:27→18:09)
[2016-11-30] MEDS: RESP: ALBUTEROL 2.5 MG/IPRATROPIUM 0.5 MG NEB (SCH) NEB ×2 (16:01→19:26)
--- NOTE | 2016-11-30 16:36 | HHI.CCPN ---
Subjective Remarks/Hospital Course 66-year-old female. Date of admission 11/22/2016. Past medical history includes COPD, EtOH, depression, chronic neck pain and peripheral neuropathy. She presented to [facility] with 2 day history of respiratory distress. No other information is currently available patient is intubated. She received 125 mg methylprednisolone and duonebs x3 by EVAC but arrived hypoxic, tachycardic tachypneic. She did not tolerate BiPAP due to anxiety. Received 3 additional DuoNeb therapies but still tired so decision was is made to emergently intubate patient. She received 20 mg etomidate and 100 mg succinylcholine successfully intubated. Chest x-ray revealed no acute findings. Patient will will have increased tidal volume and respiratory rate both PCO2. She has a leukocytosis of 18,000. 2: Arousable on the ventilator. High peak pressures noted on the ventilator. Tolerating tube feeds. Afebrile. Moves all 4 extremities spontaneous and quite agitatedon sedation vacation Subjective 11/24: Did not tolerate CPAP trials today. On high dose propofol drip at 50 mcg/ kg per minute secondary to severe agitation. Opens eyes but does not follow commands. Moves all 4 extremities spontaneously. Tolerating tube feeding. No bowel movement. 11/25: Remains sedated, orally intubated on mechanical ventilation. Tolerating tube feeds. Had BM overnight. 11/26: Remains sedated, orally intubated on mechanical ventilation. Tolerating tube feeds. 11/27: Remains sedated, orally intubated on mechanical ventilation. Failed CPap trial yesterday. Tolerating tube feeds 11/28: Remains sedated, orally intubated on mechanical ventilation. Gets agitated with C Pap trials on lightening sedation. 11/29 Patient remains sedated with Precedex and intubated. On CPAP 07/24 with 40% FIO2. Patient is able to open eyes, doesn't follow commands. Given Ativan 1mg @1600. Tmax 101.1 yesterday 11/30 improved respiratory status Objective Vital Signs Date Time Temp Pulse Resp B/P Pulse Ox O2 Delivery O2 Flow Rate FiO2 11/30/16 16:27 40 11/30/16 16:11 88 11/30/16 16:01 27 149/69 94 11/30/16 14:01 100.8 Intake and Output 211/29/16 11/30/16 08:00 16:00 00:00 Intake Total 750 ml 1271 ml 720 ml Output Total 550 ml 750 ml 1325 ml Balance 200 ml 521 ml -605 ml Result Diagram: 11/30/16 0550 11/30/16 0550 Other Results Laboratory Tests Test 11/30/16 09:42 Blood Gas Puncture Site RT RADIAL Blood Gas Patient Temperature 37.0 Blood Gas HCO3 33 mmol/L (22-26) Blood Gas Base Excess 9.3 mmol/L (-2-2) Blood Gas Oxygen Saturation 88 % (90-100) Arterial Blood pH 7.53 (7.380-7.420) Arterial Blood Partial 39 mmHg (38-42) Pressure CO2 Arterial Blood Partial 56 mmHg Pressure O2 (61-120) Arterial Blood Oxygen Content 12.2 Vol % (12.0-20.0) Arterial Blood 1.7 % (0-4) Carboxyhemoglobin Arterial Blood Methemoglobin 0.7 % (0-2) Blood Gas Hemoglobin 9.8 G/DL (12.0-16.0) Oxygen Delivery Device VENTILATOR Blood Gas Ventilator Setting CPAP5/PS12 Blood Gas Inspired Oxygen 35 % Imaging Last Impressions Chest X-Ray 11/28/16 0600 Signed Impressions: Service Date/Time: November 05:40 - CONCLUSION: No significant change has occurred. Osiel Murillo MD Head CT 11/25/16 0600 Signed Impressions: Service Date/Time: Friday, November 25, 2016 08:06 - CONCLUSION: Minimal sinus disease otherwise negative. Bebeto Donis MD FACR Chest CT 11/23/16 0000 Signed Impressions: Service Date/Time: Wednesday, November 23, 2016 09:38 - CONCLUSION: 1. Minimal patchy densities in lower lobes could be atelectasis or minimal inflammation. 2. No consolidation or mass. 3. Scarring the right upper lobe. 4. Nonspecific 8 mm nodular density right upper lobe posteriorly. Follow up CT chest in 6 months recommended for stability. Julius Ayala MD Objective Remarks GENERAL: 66-year-old female, critically ill currently orotracheally intubated SKIN: Warm and dry. No rash HEAD: Atraumatic. Normocephalic. EYES: Pupils equal and round about 2 mm bilaterally and reactive. No scleral icterus. No injection or drainage. ENT: No nasal bleeding or discharge. Mucous membranes pink and moist. NECK: Trachea midline. No JVD. Enlarged. Supple. Right IJ clean dry and intact CARDIOVASCULAR: Regular rate and rhythm. S1, S2. No S4. No murmur RESPIRATORY: Orally intubated on mechanical ventilation, no wheezing or crackles. Breath sounds equal bilaterally. Scattered rhonchi GASTROINTESTINAL: Abdomen soft, non-tender, obese. Hypoactive bowel sounds are appreciated hepatic and splenic margins not palpable. MUSCULOSKELETAL: Extremities with bilateral nonpitting edema. No obvious deformities. NEUROLOGICAL: Sedated on the ventilator on propofol drip. Withdraws to pain in all 4 extremities. Positive gag. Date of Insertion: Nov 22, 2016 Line: Central Venous Catheter Side: Right Location: Internal, Jugular A/P Assessment and Plan Neuro/Psych: History of depression/anxiety EtOH On Precedex drip to facilitate with weaning trials. Vitamin bag daily 3 days for EtOH use. Continue thiamine 100 daily Monitor for DTs Currently holding home medication Effexor 75 mg by mouth daily. Resume when clinically indicated CT head negative for bleed./EEG with burst suppression thought to be secondary to sedatives with some sharp waves on cutting down sedatives. Neurology recommended repeat EEG when off sedatives Will repeat EEG. CV: Hypotension History of hypertension History of right carotid endarterectomy Elevated troponin Monitor HR and BP keep MAP>65mmHg. On Norvasc 10mg daily 2-D echo with normal LV function, moderate tricuspid regurgitation, minimal pulmonary hypertension with PASP 39 Resp: Acute hypoxic and hypercapnic respiratory failure COPD Tobaccoism Right upper lobe pulmonary nodule - follow-up CT scan 6 months recommended ACV 14/600/5/40 Continue with vent support keep sat >92% Ventilator bundle Bronchodilator therapy every 4 hours and as needed Pulmicort twice a day Solu-Medrol 40 mg IV every 6 hours Spontaneous breathing trials daily CT chest 11/24 revealed 8 mm nodule. Follow up CT scan in 6 months recommended Consult pulmonary for pulm nodule/COPD/ resp failure Gentle diuresis and repeat SBT a.m. GI: Continue tube feeding with Jevity 1.5 goal 50 cc an hour Protonix for GI prophylaxis Colace/Senokot/MiraLAX twice a day for bowel regimen : Monitor renal function, I/O's, electrolytes replacement per protocol. Diurese with Bumex 1mg x1 On free water 200 cc every 6 hours. Monitor sodium level. Endo: Every 6 hours sliding scale insulin with Accu-Cheks to maintain euglycemia. Moderate regimen. Heme: Anemia Monitor CBC ID: Rocephin/Zithromax (started 11/22). Stopped Zithromax on 11/28 Continue with Rocephin monitor for signs of infections ( Fever, WBC) Pertinent cultures 2/2 - Blood cultures 2 no growth 2/3 -sputum no growth Influenza negative MSK: Chronic neck pain History of lumbar laminectomy PT evaluate and treat Access -Right IJ CVL day 11/22 Prophylaxis - GI - Protonix - DVT - SCD/heparin subcutaneous Critical Care: The total critical care time was 30 minutes. Time to perform other separately billable procedures was not included in the critical care time. Ruben Velazquez MD Nov 30, 2016 16:35
--- NOTE | 2016-11-30 20:21 | MG ---
cc: BALDOMERO MANCINI Lab No: [id number] Date: Age: Sex: F Race: Hyperventilation not performed. Patient is intubated, asleep. COPD, depression. Ativan, ceftriaxone. DESCRIPTION: The recording shows a symmetric 9 Hz, 60 microvolt posterior rhythm. The recording overall is synchronous and symmetric. Photic stimulation was performed without significant posterior driving. No hemisphere asymmetries are noted. No epileptiform or seizure activity is seen. IMPRESSION: Normal EEG. I do not see evidence for a focal or diffuse abnormality. MD MARCELINO Mauricio/SHE /8:04 PM /8:10 PM
[2016-12-01] VITALS (49 sets, daily range): BP systolic 134–185; BP diastolic 58–81; PULSE 72–112; RESP 13–32; TEMP 97.7–99.7; O2SAT 92–98
[2016-12-01] MEDS: RESP: ALBUTEROL 2.5 MG/IPRATROPIUM 0.5 MG NEB (SCH) NEB ×6 (00:25→22:52)
[2016-12-01] MEDS: INSULIN NovoLIN REGULAR SUPPLEMENTAL SCALE SQ SCH ×5 (00:30→23:44)
[2016-12-01] MEDS: FUROSEMIDE 20 MG/2 ML VIAL IV PUSH SCH ×2 (01:12→07:51)
[2016-12-01] MEDS: LORazepam 2 MG/ML VIAL IV PUSH PRN ×2 (02:32→09:05)
[2016-12-01] MEDS: FREE WATER G-TUBE SCH ×3 (05:22→11:17)
[2016-12-01] MEDS: METOCLOPRAMIDE HCL 10 MG/2 ML VIAL IV PUSH SCH ×2 (05:23→14:00)
[2016-12-01 06:40] LABS: AUTOMATED NEUTROPHIL # 6.9 TH/MM3 (1.8-7.7); BASOPHIL # 0.1 TH/MM3 (0-0.2); EOSINOPHIL % 0.2 % (0.0-4.0); HEMATOCRIT 28.8 % (35.0-46.0); LYMPH % 8.9 % (9.0-44.0); LYMPHOCYTE # 0.7 TH/MM3 (1.0-4.8); MEAN CELL VOLUME 77.2 FL (80.0-100.0); MEAN CORPUSCULAR HEMOGLOBIN 24.8 PG (27.0-34.0); MEAN CORPUSCULAR HGB CONC 32.1 % (32.0-36.0); MONO % 6.1 % (0.0-8.0); NEUT % 83.8 % (16.0-70.0); PLATELET COUNT 312 TH/MM3 (150-450); RED BLOOD COUNT 3.73 MIL/MM3 (4.00-5.30); RED CELL DISTRIBUTION WIDTH 18.4 % (11.6-17.2); WHITE BLOOD COUNT 8.2 TH/MM3 (4.0-11.0)
[2016-12-01 06:54] LABS: CHLORIDE 103 MEQ/L (98-107); POTASSIUM 3.7 MEQ/L (3.5-5.1); SODIUM (NA) 143 MEQ/L (136-145)
[2016-12-01 06:58] LABS: ANION GAP 6 MEQ/L (5-15); BICARBONATE 33.6 MEQ/L (21.0-32.0); BLOOD UREA NITROGEN 26 MG/DL (7-18); MAGNESIUM 2.4 MG/DL (1.5-2.5)
[2016-12-01 07:01] LABS: ALT (GPT) 40 U/L (10-53); AST (GOT) 10 U/L (15-37); GLOMERULAR FILTRATION RATE 88 ML/MIN (>89)
[2016-12-01 07:02] LABS: TOTAL BILIRUBIN ADULT 0.4 MG/DL (0.2-1.0)
[2016-12-01 07:03] LABS: ALKALINE PHOSPHATASE 80 U/L (45-117); HEMO FLAGS AUTO DIFF
[2016-12-01] MEDS: RESP: BUDESONIDE 0.5 MG/2 ML NEB NEB SCH ×2 (07:39→19:29)
[2016-12-01] MEDS: methylPREDNISolone SOD SUCC 40 MG/1 ML VIAL IV PUSH SCH ×3 (07:51→23:40)
[2016-12-01] MEDS: CHLORHEXIDINE 0.12% (ORAL KIT) 15 ML CUP MT SCH (08:00)
[2016-12-01 08:22] LABS: SCAN/DIFF AUTO DIFF CONFIRMED
[2016-12-01] MEDS: THIAMINE HCL 100 MG TAB PO SCH (08:42)
[2016-12-01] MEDS: DOCUSATE SODIUM 100 MG/10 ML UDC G-TUBE SCH (08:42)
[2016-12-01] MEDS: HEPARIN SODIUM - SQ 10,000 UNITS/ML VIAL SQ SCH ×2 (08:43→20:25)
[2016-12-01] MEDS: ACETAMINOPHEN 325 MG TAB PO PRN (08:43)
[2016-12-01] MEDS: PANTOPRAZOLE SODIUM 40 MG VIAL IV SCH (08:43)
[2016-12-01] MEDS: POLYETHYLENE GLYCOL 17 GM PKG PO SCH (09:00)
[2016-12-01] MEDS: SENNOSIDES SYRUP 8.8 MG/5 ML CUP G-TUBE SCH (09:00)
[2016-12-01] MEDS: SODIUM CHLORIDE 0.9% FLUSH 5 ML FLUSH IV FLUSH SCH ×2 (10:51→20:25)
[2016-12-01] MEDS: hydrALAZINE HCL 20 MG/ML VIAL IV PUSH PRN ×2 (10:51→15:13)
[2016-12-01] MEDS: SODIUM CHLORIDE 0.9% FLUSH 5 ML FLUSH IVF SCH (11:16)
[2016-12-01] MEDS: cefTRIAXone INJ 1,000 MG in SODIUM CHLORIDE 0.9% INJ 100 ML IV SCH (11:16)
[2016-12-01] MEDS: ARTIFICIAL TEARS OPTH SOLN 15 ML BTL EACH EYE SCH (13:00)
[2016-12-01] MEDS: ALPRAZolam 0.25 MG TAB PO PRN (15:13)
[2016-12-01] MEDS ORDERED: ETOMIDATE 20 MG/10 ML VIAL ONE (15:45)
--- NOTE | 2016-12-01 17:46 | HHI.CCPN ---
Subjective Remarks/Hospital Course 66-year-old female. Date of admission 11/22/2016. Past medical history includes COPD, EtOH, depression, chronic neck pain and peripheral neuropathy. She presented to [facility] with 2 day history of respiratory distress. No other information is currently available patient is intubated. She received 125 mg methylprednisolone and duonebs x3 by EVAC but arrived hypoxic, tachycardic tachypneic. She did not tolerate BiPAP due to anxiety. Received 3 additional DuoNeb therapies but still tired so decision was is made to emergently intubate patient. She received 20 mg etomidate and 100 mg succinylcholine successfully intubated. Chest x-ray revealed no acute findings. Patient will will have increased tidal volume and respiratory rate both PCO2. She has a leukocytosis of 18,000. 2: Arousable on the ventilator. High peak pressures noted on the ventilator. Tolerating tube feeds. Afebrile. Moves all 4 extremities spontaneous and quite agitatedon sedation vacation Subjective 11/24: Did not tolerate CPAP trials today. On high dose propofol drip at 50 mcg/ kg per minute secondary to severe agitation. Opens eyes but does not follow commands. Moves all 4 extremities spontaneously. Tolerating tube feeding. No bowel movement. 11/25: Remains sedated, orally intubated on mechanical ventilation. Tolerating tube feeds. Had BM overnight. 11/26: Remains sedated, orally intubated on mechanical ventilation. Tolerating tube feeds. 11/27: Remains sedated, orally intubated on mechanical ventilation. Failed CPap trial yesterday. Tolerating tube feeds 11/28: Remains sedated, orally intubated on mechanical ventilation. Gets agitated with C Pap trials on lightening sedation. 11/29 Patient remains sedated with Precedex and intubated. On CPAP 07/24 with 40% FIO2. Patient is able to open eyes, doesn't follow commands. Given Ativan 1mg @1600. Tmax 101.1 yesterday 12/01 Less rhonchi on PE, will extubate Objective Vital Signs Date Time Temp Pulse Resp B/P Pulse Ox O2 Delivery O2 Flow Rate FiO2 12/01/16 13:01 104 28 153/64 93 12/01/16 12:47 Nasal Cannula 4.00 Humidified 12/01/16 12:01 98.7 12/01/16 08:00 40 Intake and Output 11/30/16 11/30/16 12/01/16 08:00 16:00 00:00 Intake Total 695 ml 672 ml 600 ml Output Total 375 ml 600 ml 1350 ml Balance 320 ml 72 ml -750 ml Result Diagram: 12/01/16 0630 12/01/16 0630 Imaging Last Impressions Chest X-Ray 11/28/16 06 Signed Impressions: Service Date/Time: November 05:40 - CONCLUSION: No significant change has occurred. Osiel Murillo MD Head CT 11/25/16 0600 Signed Impressions: Service Date/Time: Friday, November 25, 2016 08:06 - CONCLUSION: Minimal sinus disease otherwise negative. Bebeto Donis MD FACR Chest CT 11/23/16 0000 Signed Impressions: Service Date/Time: Wednesday, November 23, 2016 09:38 - CONCLUSION: 1. Minimal patchy densities in lower lobes could be atelectasis or minimal inflammation. 2. No consolidation or mass. 3. Scarring the right upper lobe. 4. Nonspecific 8 mm nodular density right upper lobe posteriorly. Follow up CT chest in 6 months recommended for stability. Julius Ayala MD Objective Remarks GENERAL: 66-year-old female, critically ill currently orotracheally intubated SKIN: Warm and dry. No rash HEAD: Atraumatic. Normocephalic. EYES: Pupils equal and round about 2 mm bilaterally and reactive. No scleral icterus. No injection or drainage. ENT: No nasal bleeding or discharge. Mucous membranes pink and moist. NECK: Trachea midline. No JVD. Enlarged. Supple. Right IJ clean dry and intact CARDIOVASCULAR: Regular rate and rhythm. S1, S2. No S4. No murmur RESPIRATORY: Orally intubated on mechanical ventilation, no wheezing or crackles. Breath sounds equal bilaterally. Scattered rhonchi GASTROINTESTINAL: Abdomen soft, non-tender, obese. Hypoactive bowel sounds are appreciated hepatic and splenic margins not palpable. MUSCULOSKELETAL: Extremities with bilateral nonpitting edema. No obvious deformities. NEUROLOGICAL: Sedated on the ventilator on propofol drip. Withdraws to pain in all 4 extremities. Positive gag. Date of Insertion: Nov 22, 2016 Line: Central Venous Catheter Side: Right Location: Internal, Jugular A/P Assessment and Plan Neuro/Psych: History of depression/anxiety EtOH On Precedex drip to facilitate with weaning trials. Vitamin bag daily 3 days for EtOH use. Continue thiamine 100 daily Monitor for DTs Currently holding home medication Effexor 75 mg by mouth daily. Resume when clinically indicated CT head negative for bleed./EEG with burst suppression thought to be secondary to sedatives with some sharp waves on cutting down sedatives. Neurology recommended repeat EEG when off sedatives Will repeat EEG - per neurology. CV: Hypotension History of hypertension History of right carotid endarterectomy Elevated troponin Monitor HR and BP keep MAP>65mmHg. On Norvasc 10mg daily 2-D echo with normal LV function, moderate tricuspid regurgitation, minimal pulmonary hypertension with PASP 39 Resp: Acute hypoxic and hypercapnic respiratory failure COPD Tobaccoism Right upper lobe pulmonary nodule - follow-up CT scan 6 months recommended ACV 14/600/5/40 Doing well on SBT - Extubate Bronchodilator therapy every 4 hours and as needed Pulmicort twice a day Solu-Medrol 40 mg IV every 6 hours Spontaneous breathing trials daily CT chest 11/24 revealed 8 mm nodule. Follow up CT scan in 6 months recommended Consult pulmonary for pulm nodule/COPD/ resp failure GI: D/C tube feeding with Jevity 1.5 goal 50 cc an hour Protonix for GI prophylaxis Colace/Senokot/MiraLAX twice a day for bowel regimen Regular diet : Monitor renal function, I/O's, electrolytes replacement per protocol. Diurese with Bumex 1mg x1 On free water 200 cc every 6 hours. Monitor sodium level. Endo: Every 6 hours sliding scale insulin with Accu-Cheks to maintain euglycemia. Moderate regimen. Heme: Anemia Monitor CBC ID: Rocephin/Zithromax (started 11/22). Stopped Zithromax on 11/28 Continue with Rocephin monitor for signs of infections ( Fever, WBC) Pertinent cultures 2/2 - Blood cultures 2 no growth 2/3 -sputum no growth Influenza negative MSK: Chronic neck pain History of lumbar laminectomy PT evaluate and treat Access -Right IJ CVL day 2 Prophylaxis - GI - Protonix - DVT - SCD/heparin subcutaneous Level 3 Ruben Velazquez MD Dec 01, 2016 17:46 Ruben Velazquez MD Dec 01, 2016 17:46
[2016-12-01] MEDS: REMOVE OLD NICODERM (NICOTINE) PATCH TD SCH (20:26)
[2016-12-01] MEDS: SODIUM CHLORIDE 0.9% FLUSH 5 ML FLUSH IV FLUSH PRN (23:41)
[2016-12-02] VITALS (35 sets, daily range): BP systolic 138–180; BP diastolic 59–100; PULSE 86–112; RESP 21–32; TEMP 98.1–99.2; O2SAT 93–100
[2016-12-02] MEDS: LORazepam 2 MG/ML VIAL IV PUSH PRN (00:51)
[2016-12-02] MEDS: ALPRAZolam 0.25 MG TAB PO PRN ×2 (03:37→03:43)
[2016-12-02] MEDS: RESP: ALBUTEROL 2.5 MG/IPRATROPIUM 0.5 MG NEB (SCH) NEB ×6 (03:54→23:02)
[2016-12-02 05:02] LABS: AUTOMATED NEUTROPHIL # 9.5 TH/MM3 (1.8-7.7); BASOPHIL % 0.1 % (0.0-2.0); EOSINOPHIL # 0.1 TH/MM3 (0-0.4); EOSINOPHIL % 0.7 % (0.0-4.0); HEMATOCRIT 28.4 % (35.0-46.0); HEMO FLAGS DIFF FINAL; LYMPH % 6.4 % (9.0-44.0); LYMPHOCYTE # 0.7 TH/MM3 (1.0-4.8); MEAN CELL VOLUME 78.2 FL (80.0-100.0); MONO % 6.5 % (0.0-8.0); NEUT % 86.3 % (16.0-70.0); PLATELET COUNT 294 TH/MM3 (150-450); RED BLOOD COUNT 3.63 MIL/MM3 (4.00-5.30)
[2016-12-02 05:07] LABS: CHLORIDE 106 MEQ/L (98-107); POTASSIUM 3.3 MEQ/L (3.5-5.1); SODIUM (NA) 145 MEQ/L (136-145)
[2016-12-02 05:11] LABS: ANION GAP 10 MEQ/L (5-15); BICARBONATE 29.5 MEQ/L (21.0-32.0); BLOOD UREA NITROGEN 21 MG/DL (7-18)
[2016-12-02 05:14] LABS: ALT (GPT) 33 U/L (10-53); AST (GOT) 11 U/L (15-37); GLOMERULAR FILTRATION RATE 102 ML/MIN (>89)
[2016-12-02 05:15] LABS: TOTAL BILIRUBIN ADULT 0.6 MG/DL (0.2-1.0)
[2016-12-02 05:17] LABS: ALKALINE PHOSPHATASE 72 U/L (45-117)
[2016-12-02] MEDS: INSULIN NovoLIN REGULAR SUPPLEMENTAL SCALE SQ SCH ×2 (05:23→11:48)
[2016-12-02] MEDS: methylPREDNISolone SOD SUCC 40 MG/1 ML VIAL IV PUSH SCH ×2 (07:26→20:30)
[2016-12-02] MEDS: RESP: BUDESONIDE 0.5 MG/2 ML NEB NEB SCH ×2 (08:00→19:40)
[2016-12-02] MEDS: SODIUM CHLORIDE 0.9% FLUSH 5 ML FLUSH IVF SCH (09:00)
[2016-12-02] MEDS: HEPARIN SODIUM - SQ 10,000 UNITS/ML VIAL SQ SCH ×2 (09:01→20:31)
[2016-12-02] MEDS: SODIUM CHLORIDE 0.9% FLUSH 5 ML FLUSH IV FLUSH SCH ×2 (09:01→20:30)
[2016-12-02] MEDS: NICOTINE 21 MG/24 HR PATCH TD SCH (09:01)
[2016-12-02] MEDS: PANTOPRAZOLE SODIUM 40 MG VIAL IV SCH (09:01)
[2016-12-02] MEDS: THIAMINE HCL 100 MG TAB PO SCH (09:01)
[2016-12-02] MEDS: cefTRIAXone INJ 1,000 MG in SODIUM CHLORIDE 0.9% INJ 100 ML IV SCH (10:19)
--- NOTE | 2016-12-02 12:09 | HHI.PR ---
Subjective Remarks Extubated and on o2 N/C 4L Output was OK. Taking a diet. Objective Vital Signs Date Time Temp Pulse Resp B/P Pulse Ox O2 Delivery O2 Flow Rate FiO2 12/02/16 11:01 96 28 155/80 95 12/02/16 10:01 94 12/02/16 10:01 94 29 138/61 94 12/02/16 09:01 96 30 156/67 94 12/02/16 08:01 99.0 88 25 147/65 95 12/02/16 08:00 95 Nasal Cannula 2.00 12/02/16 08:00 90 12/02/16 08:00 95 Nasal Cannula 2.00 12/02/16 07:01 88 27 148/69 96 12/02/16 06:02 94 24 157/73 96 12/02/16 06:00 90 12/02/16 05:01 88 23 156/64 100 12/02/16 04:13 100 40 12/02/16 04:01 98.4 92 28 155/74 96 12/02/16 04:00 100 Bi-Pap 40 12/02/16 04:00 90 12/02/16 03:01 112 28 149/100 100 12/02/16 02:01 86 24 160/73 99 12/02/16 02:00 86 12/02/16 01:43 100 40 12/02/16 01:01 92 28 158/71 98 12/02/16 00:01 99.2 96 24 157/64 100 12/02/16 00:00 94 12/02/16 00:00 99 Bi-Pap 40 12/01/16 23:00 98 40 12/01/16 23:00 99 24 160/78 96 12/01/16 23:00 96 Bi-Pap 40 12/01/16 22:20 100 12/01/16 22:01 100 28 136/66 95 12/01/16 21:01 104 29 138/62 96 12/01/16 20:01 99.7 104 25 147/68 95 12/01/16 20:00 104 12/01/16 20:00 96 Nasal Cannula 4.00 Humidified 12/01/16 19:29 95 Nasal Cannula 3.00 12/01/16 19:01 108 28 148/60 95 12/01/16 18:30 99 12/01/16 18:01 104 23 156/71 94 12/01/16 17:01 100 26 140/58 94 12/01/16 16:15 96 Nasal Cannula 4.00 Humidified 12/01/16 16:15 102 12/01/16 16:01 97.7 112 32 134/58 93 12/01/16 15:01 110 22 163/64 95 12/01/16 14:01 112 23 149/60 94 12/01/16 13:01 104 28 153/64 93 12/01/16 12:47 94 Nasal Cannula 4.00 Humidified I/O 12/01/16 12/01/16 12/01/16 12/02/16 12/02/16 12/02/16 07:00 15:00 23:00 07:00 15:00 23:00 Intake Total 1310 ml 198 ml 300 ml 80 ml Output Total 1600 ml 1275 ml 600 ml 400 ml Balance -290 ml -1077 ml -300 ml -320 ml Intake Oral 60 ml 220 ml IV Total 280 ml 138 ml 80 ml 80 ml Tube Feeding 630 ml 0 ml Other 400 ml Output Urine Total 1600 ml 1275 ml 600 ml 400 ml # Bowel Movements 2 4 0 0 Result Diagram: 12/02/1642612/02/16426 Objective Remarks GENERAL: This is a moderately overweight middle-aged white female alert , no distress . HEENT: Head normocephalic. Pupils are reactive. Tongue moist. Throat has secretions. No inflammation. Nasal mucosa clear. NECK: Supple without venous distension. No bruits or thyroid enlargement or lymphadenopathy. CHEST: Equal movements with increased AP diameter with wheezes over both lung topete. Prolonged expirations with no crackles. HEART: The heart sounds are regular. S1, S2. No murmur. No S3. ABDOMEN: Soft, benign. No mass, no organomegaly or tenderness. Bowel sounds are faint and there is no organomegaly. EXTREMITIES: Decreased pulses. No calf tenderness. NEUROLOGIC: Reflexes are 1+ and the patient is oriented Babinski negative. RECTAL: Exam is deferred. SKIN: No lesions noted. Assessment and Plan Assessment and Plan IMPRESSION 1. Hypoxic respiratory failure.Resolved 2. COPD with emphysema and chronic bronchitis. 3. History of depression and anxiety. 4. History of hypertension. Plan : 1. Wean O2 to 2l 2. Cont Antibiotics ,Rocephin and switch to PO 3. Nebs qid , duoneb. 4. CBC,BMP in am. 5. Solumedrol 40 mg IV q12h. 6. CXR in am and PFT. 7. Transfer to tele. 8. Soft diet. 9. Reduce sedation. Esther Garcia MD Dec 02, 2016 12:09
[2016-12-02] MEDS ORDERED: AMIT1TAB79 PO (14:20)
[2016-12-02] MEDS ORDERED: EFFE150C PO (14:20)
[2016-12-02] MEDS ORDERED: GLUCAGON 1 MG/ML VIAL OTHER PRN (16:15)
[2016-12-02] MEDS ORDERED: DEXTROSE 50% IN WATER 50 ML VIAL(D50) IV PUSH PRN (16:15)
[2016-12-02] MEDS ORDERED: PLEASE DISCONTINUE PREVIOUS SUPPLEMENTAL SCALE INSULIN ORDERS XX ONE (16:15)
[2016-12-02] MEDS: MEDIUM DOSE INSULIN NOVOLOG SUPPLEMENTAL SCALE SQ SCH ×2 (16:19→20:38)
--- NOTE | 2016-12-02 16:24 | HHI.PR ---
Subjective Remarks The patient denies any dyspnea. She's been stable on nasal cannula 6 anticipation yesterday. She is eating well. Has productive cough. States she does not use home oxygen. Discussed with daughter at bedside. Objective Vitals Vital Signs Date Time Temp Pulse Resp B/P Pulse Ox O2 Delivery O2 Flow Rate FiO2 12/02/16 15:01 96 25 157/68 96 12/02/16 14:01 98 12/02/16 14:01 98 31 153/61 94 12/02/16 13:01 100 25 150/66 94 12/02/16 12:01 99.1 96 24 146/66 93 12/02/16 12:01 96 12/02/16 12:00 95 Nasal Cannula 2.00 12/02/16 11:01 96 28 155/80 95 12/02/16 10:01 94 12/02/16 10:01 94 29 138/61 94 12/02/16 09:01 96 30 156/67 94 12/02/16 08:01 99.0 88 25 147/65 95 12/02/16 08:00 95 Nasal Cannula 2.00 12/02/16 08:00 90 12/02/16 08:00 95 Nasal Cannula 2.00 12/02/16 07:01 88 27 148/69 96 12/02/16 06:02 94 24 157/73 96 12/02/16 06:00 90 12/02/16 05:01 88 23 156/64 100 12/02/16 04:13 100 40 12/02/16 04:01 98.4 92 28 155/74 96 12/02/16 04:00 100 Bi-Pap 40 12/02/16 04:00 90 12/02/16 03:01 112 28 149/100 100 12/02/16 02:01 86 24 160/73 99 12/02/16 02:00 86 12/02/16 01:43 100 40 12/02/16 01:01 92 28 158/71 98 12/02/16 00:01 99.2 96 24 157/64 100 12/02/16 00:00 94 12/02/16 00:00 99 Bi-Pap 40 12/01/16 23:00 98 40 12/01/16 23:00 99 24 160/78 96 12/01/16 23:00 96 Bi-Pap 40 12/01/16 22:20 100 12/01/16 22:01 100 28 136/66 95 12/01/16 21:01 104 29 138/62 96 12/01/16 20:01 99.7 104 25 147/68 95 12/01/16 20:00 104 12/01/16 20:00 96 Nasal Cannula 4.00 Humidified 12/01/16 19:29 95 Nasal Cannula 3.00 12/01/16 19:01 108 28 148/60 95 12/01/16 18:30 99 12/01/16 18:01 104 23 156/71 94 12/01/16 17:01 100 26 140/58 94 I/O 12/01/16 12/01/16 12/01/16 12/02/16 12/02/16 12/02/16 07:00 15:00 23:00 07:00 15:00 23:00 Intake Total 1310 ml 198 ml 300 ml 80 ml 565 ml Output Total 1600 ml 1275 ml 600 ml 400 ml 800 ml Balance -290 ml -1077 ml -300 ml -320 ml -235 ml Intake Oral 60 ml 220 ml 320 ml IV Total 280 ml 138 ml 80 ml 80 ml 245 ml Tube Feeding 630 ml 0 ml Other 400 ml Output Urine Total 1600 ml 1275 ml 600 ml 400 ml 800 ml # Bowel Movements 2 4 0 0 0 Result Diagram: 12/02/1642612/02/16426 Objective Remarks GENERAL: Well-nourished, well-developed pleasant female patient. SKIN: Warm and dry. HEAD: Normocephalic. EYES: No scleral icterus. No injection or drainage. NECK: Supple, trachea midline. No JVD or lymphadenopathy. CARDIOVASCULAR: Regular rate and rhythm without murmurs, gallops, or rubs. RESPIRATORY: Breath sounds equal bilaterally. Prolonged expiratory phase bilaterally. No accessory muscle use. GASTROINTESTINAL: Abdomen soft, non-tender, nondistended. EXTREMITIES: No cyanosis, or edema. NEUROLOGICAL: Awake, alert, and oriented x 3. Non-focal. Date of Insertion: Nov 22, 2016 Line: Central Venous Catheter Side: Right Location: Internal, Jugular A/P Problem List: (1) Acute respiratory failure with hypoxia and hypercapnia ICD Code: J96.01 Status: Acute (2) Chronic obstructive pulmonary disease with acute exacerbation ICD Code: J44.1 Status: Acute (3) Alcohol abuse, daily use ICD Code: F10.10 Status: Acute (4) Hypertension ICD Code: I10 Status: Acute (5) Systemic inflammatory response syndrome ICD Code: R65.10 Status: Acute (6) Sinus tachycardia ICD Code: R00.0 Status: Acute (7) Hyperglycemia ICD Code: R73.9 Status: Acute (8) Leukocytosis ICD Code: D72.829 Status: Acute Assessment and Plan -Acute respiratory failure secondary to COPD exacerbation. Intubated November 22 after not tolerating BiPAP, extubated December 01. Continue Solu-Medrol, DuoNeb's, O2 via nasal cannula. Pulmonology following the patient. -Depression/anxiety - resume home Effexor and amitriptyline. -History of hypertension. Continue Norvasc 10 mg daily. -History of right carotid endarterectomy -Mildly elevated troponin without significant upward trend. 2-D echo with normal LV function moderate tricuspid regurg. -COPD. Tobaccoism. Encouraged on cessation. -Abnormal EEG with burst suppression thought secondary to sedatives. Repeat EEG when off sedatives per neurology. I will order EEG today. -Right upper lobe lung nodule follow-up CT scan in 6 months as outpatient. -Chronic neck and back pain. -Hyperglycemia secondary to steroids. Continue sliding scale insulin. -DC central line after peripheral IVs replaced. -DVT prophylaxis with heparin subcutaneous. -Consult physical therapy. Problem Qualifiers (1) Hypertension: Qualified Code: I10 - Essential hypertension (2) Leukocytosis: Qualified Code: D72.829 - Leukocytosis, unspecified type Brea Funk MD Dec 02, 2016 16:24
[2016-12-02] MEDS: AMITRIPTYLINE HCL 25 MG TAB PO SCH (20:30)
[2016-12-02] MEDS: REMOVE OLD NICODERM (NICOTINE) PATCH TD SCH (20:38)
[2016-12-03] VITALS (38 sets, daily range): BP systolic 137–191; BP diastolic 58–83; PULSE 86–120; RESP 11–32; TEMP 98.3–98.9; O2SAT 93–100
[2016-12-03] MEDS: LORazepam 2 MG/ML VIAL IV PUSH PRN ×2 (00:06→22:46)
[2016-12-03] MEDS: hydrALAZINE HCL 20 MG/ML VIAL IV PUSH PRN ×2 (00:15→03:43)
[2016-12-03] MEDS: RESP: ALBUTEROL 2.5 MG/IPRATROPIUM 0.5 MG NEB (SCH) NEB ×6 (03:29→23:12)
[2016-12-03] MEDS: MEDIUM DOSE INSULIN NOVOLOG SUPPLEMENTAL SCALE SQ SCH ×4 (07:00→21:54)
[2016-12-03] MEDS: RESP: BUDESONIDE 0.5 MG/2 ML NEB NEB SCH ×2 (07:29→19:43)
[2016-12-03] MEDS: PANTOPRAZOLE SODIUM 40 MG VIAL IV SCH (08:27)
[2016-12-03] MEDS: methylPREDNISolone SOD SUCC 40 MG/1 ML VIAL IV PUSH SCH ×2 (08:27→20:31)
[2016-12-03] MEDS: NICOTINE 21 MG/24 HR PATCH TD SCH (08:29)
[2016-12-03] MEDS: THIAMINE HCL 100 MG TAB PO SCH (08:29)
[2016-12-03] MEDS: VENLAFAXINE HCL XR 75 MG CAP PO SCH (08:29)
[2016-12-03] MEDS: HEPARIN SODIUM - SQ 10,000 UNITS/ML VIAL SQ SCH ×2 (08:29→20:31)
[2016-12-03] MEDS: SODIUM CHLORIDE 0.9% FLUSH 5 ML FLUSH IV FLUSH SCH ×2 (08:30→20:32)
[2016-12-03] MEDS: SODIUM CHLORIDE 0.9% FLUSH 5 ML FLUSH IVF SCH (09:00)
[2016-12-03] MEDS ORDERED: POTASSIUM CHLORIDE 20 MEQ CONTROLLED RELEASE TAB PO ONE ×2 (09:30→23:15)
[2016-12-03] MEDS ORDERED: FUROSEMIDE 40 MG/4 ML VIAL IV PUSH ONE (09:30)
[2016-12-03] MEDS: cefTRIAXone INJ 1,000 MG in SODIUM CHLORIDE 0.9% INJ 100 ML IV SCH (10:52)
--- NOTE | 2016-12-03 13:58 | HHI.PR ---
Subjective Remarks Patient seen and examined today with Dr. Funk. Patient is improving. She is only on 2 L nasal cannula. Follow-up for respiratory failure. Objective Vitals Vital Signs Date Time Temp Pulse Resp B/P Pulse Ox O2 Delivery O2 Flow Rate FiO2 12/03/16 11:01 92 27 145/58 97 12/03/16 11:01 92 12/03/16 10:00 90 22 146/69 12/03/16 10:00 90 12/03/16 09:01 98.5 114 32 165/71 98 12/03/16 08:01 94 27 147/66 97 12/03/16 08:00 94 12/03/16 08:00 96 Nasal Cannula 2.00 12/03/16 07:33 96 Nasal Cannula 2.00 12/03/16 07:01 96 30 149/64 97 12/03/16 07:01 96 30 149/64 97 12/03/16 06:01 96 20 142/63 96 12/03/16 06:01 96 20 142/63 96 12/03/16 06:00 96 12/03/16 06:00 96 18 96 12/03/16 05:01 94 28 153/72 93 12/03/16 05:00 96 12/03/16 05:00 95 Nasal Cannula 2.00 12/03/16 04:01 98.5 96 30 143/74 95 12/03/16 04:00 97 Nasal Cannula 2.00 12/03/16 03:01 120 30 191/83 96 12/03/16 02:01 104 12/03/16 02:01 104 26 162/75 97 12/03/16 01:01 94 23 158/64 94 12/03/16 00:43 98 28 154/65 94 12/03/16 00:07 98.3 104 28 181/82 94 12/03/16 00:00 108 12/03/16 00:00 97 2.00 12/02/16 23:20 104 26 167/86 94 12/02/16 23:02 102 21 180/93 93 12/02/16 22:01 106 24 156/66 97 12/02/16 22:00 100 12/02/16 21:05 92 23 157/82 98 12/02/16 20:01 98.1 92 26 142/63 97 12/02/16 20:00 90 12/02/16 20:00 96 Nasal Cannula 2.00 12/02/16 19:40 98 Nasal Cannula 2.00 12/02/16 19:01 90 26 156/69 96 12/02/16 18:00 92 32 149/62 96 12/02/16 18:00 92 12/02/16 17:01 100 30 155/78 95 12/02/16 16:00 94 12/02/16 16:00 98.5 94 26 149/59 96 12/02/16 16:00 95 Nasal Cannula 2.00 12/02/16 15:01 96 25 157/68 96 12/02/16 14:01 98 12/02/16 14:01 98 31 153/61 94 I/O 12/02/16 12/02/16 12/02/16 12/03/16 12/03/16 12/03/16 07:00 15:00 23:00 07:00 15:00 23:00 Intake Total 80 ml 565 ml 120 ml 120 ml Output Total 400 ml 800 ml 1200 ml Balance -320 ml -235 ml 120 ml -1080 ml Intake Oral 320 ml 120 ml 120 ml IV Total 80 ml 245 ml Output Urine Total 400 ml 800 ml 1200 ml # Bowel Movements 0 0 0 1 Result Diagram: 12/02/1642612/02/16426 Objective Remarks GENERAL: Well-developed, well-nourished, in no acute distress. alert and orientated HEENT: Head is normocephalic without any lesions or masses noted. Facial features are symmetric. Eyes: Pupils equal round reactive to light. Extraocular muscles are intact. Conjunctivae were clear. Oropharyngeal: Pharynx without any erythema edema. Tongue is midline without deviation. Buccal mucosa is moist without any masses or lesions NECK: Supple without any masses. Trachea midline no deviation. No JVD, no bruits are appreciated CARDIAC: Regular rhythm, regular rate. S1/S2 are heard. No murmurs gallops or rubs. LUNGS: Clear to auscultation bilaterally. No wheeze, rhonchi or rales. No use of accessory muscles on inspiration or expiration. ABDOMEN: Soft, nontender. Nondistended. Bowel sounds heard in all 4 quadrants. No organomegaly or masses. Negative rebound, negative guarding EXTREMITIES: No edema, pulses are equal bilaterally. No cyanosis or clubbing NEUROLOGY: Mood and affect appear appropriate. Cranial nerves II through XII grossly intact. Muscle strength 5/5 in upper and lower extremities bilaterally. Deep tendon reflexes are 2+ in upper and lower extremities bilaterally. Urinary Catheter: No Vascular Central Line Catheter: No Date of Insertion: Nov 22, 2016 A/P Assessment and Plan Acute hypoxic/hypercapnic respiratory failure secondary to chronic objective pulmonary disease exacerbation. Improving Intubated November 22 after not tolerating BiPAP, extubated December 01. Continue Solu-Medrol Continue DuoNeb's Continue O2 via nasal cannula. Pulmonology following the patient. Fluid overload from fluid resuscitation Give Lasix 40 mg IV 1 today Ins and outs indicate patient still 6 kg weight gain Continue monitor strict input and output Mildly elevated troponin without significant upward trend. 2-D echo with normal LV function moderate tricuspid regurg. Hyperglycemia, likely secondary to steroid use Obtain hemoglobin A1c Accu-Cheks with sliding scale insulin Abnormal EEG with burst suppression thought secondary to sedatives on 11/25/16. repeat EEG off sedatives (as recommended per neurology) shows normal EEG on 09/05 Physical deconditioning due to prolonged intubation and hospitalization Physical therapy consulted Depression/anxiety resume home Effexor and amitriptyline. History of hypertension. Continue Norvasc 10 mg daily. Tobaccoism. Encouraged on cessation. Right upper lobe lung nodule follow-up CT scan in 6 months as outpatient. DVT prophylaxis heparin subcutaneous. Written by Martin Curtis PA-C, acting as scribe for Dr. Funk on 12/03/16 at 15:15 The documentation accurately reflects the work and decisions performed face-to- face by Dr. Funk on 12/03/16 at 15:15 Discharge Planning Will likely require SNF. Martin Curtis Dec 03, 2016 13:58 Brea Funk MD Dec 03, 2016 15:39
--- NOTE | 2016-12-03 20:13 | HHI.PR ---
Subjective Remarks Extubated and on o2 N/C 3L. Very weak still. Output was OK. Taking a diet. Objective Vital Signs Date Time Temp Pulse Resp B/P Pulse Ox O2 Delivery O2 Flow Rate FiO2 12/03/16 18:01 98.4 94 25 153/64 12/03/16 18:00 94 12/03/16 17:01 92 19 148/63 97 12/03/16 16:01 90 26 153/69 96 12/03/16 16:00 90 12/03/16 16:00 96 Nasal Cannula 2.00 12/03/16 15:01 92 21 148/65 99 12/03/16 14:01 90 28 137/61 97 12/03/16 14:00 88 12/03/16 13:01 98.9 98 26 138/67 98 12/03/16 12:00 94 12/03/16 12:00 97 Nasal Cannula 2.00 12/03/16 11:01 92 27 145/58 97 12/03/16 11:01 92 12/03/16 10:00 90 22 146/69 12/03/16 10:00 90 12/03/16 09:01 98.5 114 32 165/71 98 12/03/16 08:01 94 27 147/66 97 12/03/16 08:00 94 12/03/16 08:00 96 Nasal Cannula 2.00 12/03/16 07:33 96 Nasal Cannula 2.00 12/03/16 07:01 96 30 149/64 97 12/03/16 07:01 96 30 149/64 97 12/03/16 06:01 96 20 142/63 96 12/03/16 06:01 96 20 142/63 96 12/03/16 06:00 96 12/03/16 06:00 96 18 96 12/03/16 05:01 94 28 153/72 93 12/03/16 05:00 96 12/03/16 05:00 95 Nasal Cannula 2.00 12/03/16 04:01 98.5 96 30 143/74 95 12/03/16 04:00 97 Nasal Cannula 2.00 12/03/16 03:01 120 30 191/83 96 12/03/16 02:01 104 12/03/16 02:01 104 26 162/75 97 12/03/16 01:01 94 23 158/64 94 12/03/16 00:43 98 28 154/65 94 12/03/16 00:07 98.3 104 28 181/82 94 12/03/16 00:00 108 12/03/16 00:00 97 2.00 12/02/16 23:20 104 26 167/86 94 12/02/16 23:02 102 21 180/93 93 12/02/16 22:01 106 24 156/66 97 12/02/16 22:00 100 12/02/16 21:05 92 23 157/82 98 I/O 12/02/16 12/02/16 12/02/16 12/03/16 12/03/16 12/03/16 07:00 15:00 23:00 07:00 15:00 23:00 Intake Total 80 ml 565 ml 120 ml 120 ml 120 ml Output Total 400 ml 800 ml 1200 ml 850 ml Balance -320 ml -235 ml 120 ml -1080 ml -730 ml Intake Oral 320 ml 120 ml 120 ml 120 ml IV Total 80 ml 245 ml Output Urine Total 400 ml 800 ml 1200 ml 850 ml # Bowel Movements 0 0 0 1 1 Result Diagram: 12/02/1642612/02/16426 Objective Remarks GENERAL: This is a moderately overweight middle-aged white female alert , no distress . HEENT: Head normocephalic. Pupils are reactive. Tongue moist. Throat has secretions. No inflammation. Nasal mucosa clear. NECK: Supple without venous distension. No bruits or thyroid enlargement or lymphadenopathy. CHEST: Equal movements with increased AP diameter with wheezes over both lung topete. Prolonged expirations with occ wheezes. HEART: The heart sounds are regular. S1, S2. No murmur. No S3. ABDOMEN: Soft, benign. No mass, no organomegaly or tenderness. Bowel sounds are faint and there is no organomegaly. EXTREMITIES: Decreased pulses. No calf tenderness. NEUROLOGIC: Reflexes are 1+ and the patient is oriented Babinski negative. RECTAL: Exam is deferred. SKIN: No lesions noted. Assessment and Plan Assessment and Plan IMPRESSION 1. Hypoxic respiratory failure.Resolved 2. COPD with emphysema and chronic bronchitis. 3. History of depression and anxiety. 4. History of hypertension. Plan : 1. Wean O2 to 2l 2. Cont Antibiotics PO. 3. Nebs qid , duoneb. 4. CBC,BMP 5. D/C Solumedrol . 6. Prednisone 20 mg bid. 7. Transfer to tele. 8. Soft diet. Esther Garcia MD Dec 03, 2016 20:13
[2016-12-03 20:31] LABS: HEMATOCRIT 34.1 % (35.0-46.0); MEAN CELL VOLUME 78.3 FL (80.0-100.0); MEAN CORPUSCULAR HEMOGLOBIN 25.6 PG (27.0-34.0); MEAN CORPUSCULAR HGB CONC 32.7 % (32.0-36.0); PLATELET COUNT 332 TH/MM3 (150-450); RED BLOOD COUNT 4.35 MIL/MM3 (4.00-5.30); RED CELL DISTRIBUTION WIDTH 18.7 % (11.6-17.2); WHITE BLOOD COUNT 15.2 TH/MM3 (4.0-11.0)
[2016-12-03] MEDS: REMOVE OLD NICODERM (NICOTINE) PATCH TD SCH (20:32)
[2016-12-03] MEDS: AMITRIPTYLINE HCL 25 MG TAB PO SCH (20:32)
[2016-12-03] MEDS: ALPRAZolam 0.25 MG TAB PO PRN (20:32)
[2016-12-03 20:33] LABS: HEMO FLAGS AUTO DIFF
[2016-12-03 21:24] LABS: METAMYELOCYTES 2 % (0-1); NEUTROPHIL # MANUAL DIFF 13.1 TH/MM3 (1.8-7.7); POLYS (SEG NEUTROPHILS) 84 % (16-70); WBC DIFF SAMPLE 100
[2016-12-03 21:25] LABS: POTASSIUM 3.4 MEQ/L (3.5-5.1)
[2016-12-03 21:26] LABS: OVALOCYTES 1+ (NORMAL); TARGET CELLS 1+ (NORMAL)
[2016-12-03 21:27] LABS: BICARBONATE 25.7 MEQ/L (21.0-32.0)
[2016-12-03 21:27] LABS: PLATELET ESTIMATE SMEAR NORMAL (NORMAL); PLATELET MORPHOLOGY NORMAL (NORMAL); SCAN/DIFF FINAL DIFF MANUAL
[2016-12-04] VITALS (19 sets, daily range): BP systolic 139–168; BP diastolic 62–85; PULSE 80–104; RESP 18–31; TEMP 97.4–99.1; O2SAT 94–98
--- NOTE | 2016-12-04 04:26 | RADHPO ---
EXAM DATE/TIME: 12/04/2016 03:58 [facility] COMPARISON: CHEST SINGLE AP, November 30, 2016, 6:20. INDICATIONS : Respiratory distress. MEDICAL HISTORY : Chronic obstructive pulmonary disease. CAD. SURGICAL HISTORY : Cholecystectomy. ENCOUNTER: Subsequent ACUITY: 1 week PAIN SCORE: Non-responsive. LOCATION: Bilateral chest FINDINGS: The cardiac silhouette is enlarged in transverse diameter. There are findings of congestive heart isiah lure with interstitial and alveolar opacity bilaterally. There has been no significant change when co mpared to the prior exam. Small bilateral pleural effusions are identified. CONCLUSION: 1. Cardiomegaly and findings of congestive heart failure. There has been no significant change when c ompared to the prior exam. Abad Cannon MD on December 04, 2016 at 4:24 Board Certified Radiologist. This report was verified electronically.
[2016-12-04] MEDS: RESP: ALBUTEROL 2.5 MG/IPRATROPIUM 0.5 MG NEB (SCH) NEB ×5 (04:45→19:08)
[2016-12-04 06:35] LABS: POTASSIUM 4.1 MEQ/L (3.5-5.1)
[2016-12-04 06:41] LABS: BICARBONATE 23.5 MEQ/L (21.0-32.0); MAGNESIUM 2.4 MG/DL (1.5-2.5)
[2016-12-04] MEDS: MEDIUM DOSE INSULIN NOVOLOG SUPPLEMENTAL SCALE SQ SCH ×4 (07:00→20:39)
[2016-12-04 07:42] LABS: HEMATOCRIT 30.8 % (35.0-46.0); MEAN CELL VOLUME 78.2 FL (80.0-100.0); MEAN CORPUSCULAR HEMOGLOBIN 24.4 PG (27.0-34.0); MEAN CORPUSCULAR HGB CONC 31.2 % (32.0-36.0); PLATELET COUNT 317 TH/MM3 (150-450); RED BLOOD COUNT 3.94 MIL/MM3 (4.00-5.30); RED CELL DISTRIBUTION WIDTH 18.2 % (11.6-17.2); WHITE BLOOD COUNT 10.3 TH/MM3 (4.0-11.0)
[2016-12-04 07:43] LABS: HEMO FLAGS AUTO DIFF
[2016-12-04] MEDS: RESP: BUDESONIDE 0.5 MG/2 ML NEB NEB SCH ×2 (07:45→19:08)
[2016-12-04 08:16] LABS: PLATELET ESTIMATE SMEAR NORMAL (NORMAL); PLATELET MORPHOLOGY NORMAL (NORMAL); POLYS (SEG NEUTROPHILS) 78 % (16-70); SCAN/DIFF FINAL DIFF MANUAL; WBC DIFF SAMPLE 100
[2016-12-04] MEDS: SODIUM CHLORIDE 0.9% FLUSH 5 ML FLUSH IVF SCH (09:00)
[2016-12-04] MEDS: NICOTINE 21 MG/24 HR PATCH TD SCH (09:09)
[2016-12-04] MEDS: THIAMINE HCL 100 MG TAB PO SCH (09:10)
[2016-12-04] MEDS: methylPREDNISolone SOD SUCC 40 MG/1 ML VIAL IV PUSH SCH (09:10)
[2016-12-04] MEDS: PANTOPRAZOLE SODIUM 40 MG VIAL IV SCH (09:10)
[2016-12-04] MEDS: VENLAFAXINE HCL XR 75 MG CAP PO SCH (09:10)
[2016-12-04] MEDS: SODIUM CHLORIDE 0.9% FLUSH 5 ML FLUSH IV FLUSH SCH ×2 (09:10→20:33)
[2016-12-04] MEDS: HEPARIN SODIUM - SQ 10,000 UNITS/ML VIAL SQ SCH ×2 (09:11→20:34)
--- NOTE | 2016-12-04 09:20 | HHI.PR ---
Subjective Remarks Patient seen and examined today. Patient still with mild confusion. With prolonged contemplation she did admit that is 2016. She states that she is in [place]. She does know that Mr. Woodard is present. Patient with improved diuresis overnight. Still 3 kg above admission weight Objective Vitals Vital Signs Date Time Temp Pulse Resp B/P Pulse Ox O2 Delivery O2 Flow Rate FiO2 12/04/16 07:46 98 Nasal Cannula 2.00 12/04/16 06:19 92 25 156/68 97 12/04/16 06:02 98.4 92 28 149/85 97 12/04/16 06:00 90 12/04/16 05:02 86 24 154/77 94 12/04/16 04:02 84 23 141/69 96 12/04/16 04:00 92 12/04/16 04:00 97 Nasal Cannula 2.00 12/04/16 03:02 82 26 149/78 95 12/04/16 02:02 94 26 154/73 95 12/04/16 01:02 100 28 153/66 96 12/04/16 00:05 102 30 148/75 96 12/04/16 00:02 98.9 104 31 168/78 97 12/04/16 00:00 100 12/04/16 00:00 97 Nasal Cannula 2.00 12/03/16 23:02 86 11 144/64 94 12/03/16 22:04 92 25 153/71 97 12/03/16 21:02 90 21 144/73 97 12/03/16 20:06 100 26 149/70 99 12/03/16 20:05 98 24 172/74 100 12/03/16 20:02 98.4 94 18 169/75 99 12/03/16 20:00 100 Nasal Cannula 2.00 12/03/16 20:00 96 12/03/16 19:43 97 Nasal Cannula 2.00 12/03/16 19:27 92 28 153/77 98 12/03/16 19:01 98 26 158/67 12/03/16 18:01 98.4 94 25 153/64 12/03/16 18:00 94 12/03/16 17:01 92 19 148/63 97 12/03/16 16:01 90 26 153/69 96 12/03/16 16:00 90 12/03/16 16:00 96 Nasal Cannula 2.00 12/03/16 15:01 92 21 148/65 99 12/03/16 14:01 90 28 137/61 97 12/03/16 14:00 88 12/03/16 13:01 98.9 98 26 138/67 98 12/03/16 12:00 94 12/03/16 12:00 97 Nasal Cannula 2.00 12/03/16 11:01 92 27 145/58 97 12/03/16 11:01 92 12/03/16 10:00 90 22 146/69 12/03/16 10:00 90 I/O 12/03/16 12/03/16 12/03/16 12/04/16 12/04/16 12/04/16 07:00 15:00 23:00 07:00 15:00 23:00 Intake Total 120 ml 120 ml 120 ml 60 ml Output Total 1200 ml 850 ml 900 ml 700 ml Balance -1080 ml -730 ml -780 ml -640 ml Intake Oral 120 ml 120 ml 120 ml 60 ml Output Urine Total 1200 ml 850 ml 900 ml 700 ml # Voids 2 # Bowel Movements 1 1 Result Diagram: 12/04/16 0715 12/04/16 0450 Objective Remarks GENERAL: Well-developed, well-nourished, in no acute distress. alert and orientated to person, 2017, [place], ENT: Head is normocephalic without any lesions or masses noted. Facial features are symmetric. Eyes: Extraocular muscles are intact. Conjunctivae were clear. NECK: Supple without any masses. Trachea midline no deviation. No JVD, CARDIAC: Regular rhythm, regular rate. S1/S2 are heard. No murmurs gallops or rubs. LUNGS: Clear to auscultation bilaterally. No wheeze, rhonchi or rales. No use of accessory muscles on inspiration or expiration. ABDOMEN: Soft, nontender. Nondistended. Bowel sounds heard in all 4 quadrants. No organomegaly or masses. Negative rebound, negative guarding EXTREMITIES: No edema, pulses are equal bilaterally. No cyanosis or clubbing NEUROLOGY: Mood and affect appear appropriate. Cranial nerves II through XII grossly intact. Moving all extremities, speech is clear Urinary Catheter: No Vascular Central Line Catheter: No Date of Insertion: Nov 22, 2016 A/P Assessment and Plan Acute hypoxic/hypercapnic respiratory failure secondary to chronic objective pulmonary disease exacerbation. Improving Intubated November 22 after not tolerating BiPAP, extubated December 01. change to prednisone Continue DuoNeb's Continue O2 via nasal cannula. Pulmonology following the patient. Fluid overload from fluid resuscitation Give another Lasix 40 mg IV today Ins and outs indicate patient still 3 kg weight gain Continue monitor strict input and output -Echo this admission - preserved LVEF, NOT chf exacerbation Mildly elevated troponin without significant upward trend. 2-D echo with normal LV function moderate tricuspid regurg. Hyperglycemia, likely secondary to steroid use Hemoglobin A1c pending Accu-Cheks with sliding scale insulin Abnormal EEG with burst suppression thought secondary to sedatives on 11/25/16. repeat EEG off sedatives (as recommended per neurology) shows normal EEG on 09/05 Physical deconditioning due to prolonged intubation and hospitalization Physical therapy consulted Depression/anxiety resume home Effexor and amitriptyline. History of hypertension. Continue Norvasc 10 mg daily. Tobaccoism. Encouraged on cessation. Right upper lobe lung nodule follow-up CT scan in 6 months as outpatient. DVT prophylaxis heparin subcutaneous. Written by Martin Curtis PA-C, acting as scribe for Dr. Funk on 12/04/16 at 16:15 The documentation accurately reflects the work and decisions performed face-to- face by Dr. Funk on 12/04/16 at 16:15 Martin Curtis Dec 04, 2016 09:20 Brea Funk MD Dec 04, 2016 18:46
[2016-12-04] MEDS ORDERED: FUROSEMIDE 40 MG/4 ML VIAL IV PUSH ONE (09:30)
[2016-12-04] MEDS: cefTRIAXone INJ 1,000 MG in SODIUM CHLORIDE 0.9% INJ 100 ML IV SCH (11:21)
[2016-12-04] MEDS: ALPRAZolam 0.25 MG TAB PO PRN ×2 (15:34→22:57)
--- NOTE | 2016-12-04 17:17 | HHI.PR ---
Subjective Remarks Off o2 and sats are 93. Very weak and is confused. Output was OK. Taking a diet. Objective Vital Signs Date Time Temp Pulse Resp B/P Pulse Ox O2 Delivery O2 Flow Rate FiO2 12/04/16 16:34 97.4 95 18 141/63 94 12/04/16 16:00 94 Room Air 12/04/16 12:23 98.0 84 26 140/69 96 12/04/16 12:00 93 Room Air 12/04/16 08:00 80 12/04/16 08:00 97 Nasal Cannula 2.00 12/04/16 07:46 98 Nasal Cannula 2.00 12/04/16 07:02 98.7 82 25 139/64 97 12/04/16 06:19 92 25 156/68 97 12/04/16 06:02 98.4 92 28 149/85 97 12/04/16 06:00 90 12/04/16 05:02 86 24 154/77 94 12/04/16 04:02 84 23 141/69 96 12/04/16 04:00 92 12/04/16 04:00 97 Nasal Cannula 2.00 12/04/16 03:02 82 26 149/78 95 12/04/16 02:02 94 26 154/73 95 12/04/16 01:02 100 28 153/66 96 12/04/16 00:05 102 30 148/75 96 12/04/16 00:02 98.9 104 31 168/78 97 12/04/16 00:00 100 12/04/16 00:00 97 Nasal Cannula 2.00 12/03/16 23:02 86 11 144/64 94 12/03/16 22:04 92 25 153/71 97 12/03/16 21:02 90 21 144/73 97 12/03/16 20:06 100 26 149/70 99 12/03/16 20:05 98 24 172/74 100 12/03/16 20:02 98.4 94 18 169/75 99 12/03/16 20:00 100 Nasal Cannula 2.00 12/03/16 20:00 96 12/03/16 19:43 97 Nasal Cannula 2.00 12/03/16 19:27 92 28 153/77 98 12/03/16 19:01 98 26 158/67 12/03/16 18:01 98.4 94 25 153/64 2/14/17 18:00 94 I/O 12/03/16 12/03/16 12/03/16 12/04/16 12/04/16 12/04/16 07:00 15:00 23:00 07:00 15:00 23:00 Intake Total 120 ml 120 ml 120 ml 60 ml 645 ml Output Total 1200 ml 850 ml 900 ml 700 ml 800 ml Balance -1080 ml -730 ml -780 ml -640 ml -155 ml Intake Oral 120 ml 120 ml 120 ml 60 ml 520 ml IV Total 125 ml Output Urine Total 1200 ml 850 ml 900 ml 700 ml 800 ml # Voids 2 # Bowel Movements 1 1 0 Result Diagram: 12/04/16 0715 12/04/16 0450 Objective Remarks GENERAL: This is a moderately overweight middle-aged white female alert , no distress . HEENT: Head normocephalic. Pupils are reactive. Tongue moist. . Nasal mucosa clear. NECK: Supple without venous distension. No bruits or thyroid enlargement or lymphadenopathy. CHEST: Equal movements with increased AP diameter with wheezes over both lung topete. Prolonged expirations . HEART: The heart sounds are regular. S1, S2. No murmur. No S3. ABDOMEN: Soft, benign. No mass, no organomegaly or tenderness. EXTREMITIES: Decreased pulses. No calf tenderness. NEUROLOGIC: Reflexes are 1+ and the patient is somewhat confused. Babinski negative. RECTAL: Exam is deferred. SKIN: No lesions noted. Assessment and Plan Assessment and Plan IMPRESSION 1. Hypoxic respiratory failure.Resolved 2. COPD with emphysema and chronic bronchitis. 3. History of depression and anxiety. 4. History of hypertension. Plan : 1. D/C O2 2. Cont Antibiotics PO. 3. Nebs qid , duoneb. 4. CBC,BMP 5. PFT at bedside 6. Taper Prednisone 10 mg bid. 7. Transfer to tele. 8. Soft diet. Esther Garcia MD Dec 04, 2016 17:17
[2016-12-04 18:06] LABS: HEMOGLOBIN A1b 2.3 %
[2016-12-04 18:07] LABS: HEMOGLOBIN Ao 81.7 %; HEMOGLOBIN LA1C 2.7 %; HEMOGLOBIN P3 4.8 %
[2016-12-04] MEDS: CEFUROXIME AXETIL 500 MG TAB PO SCH (20:33)
[2016-12-04] MEDS: predniSONE 10 MG TAB PO SCH (20:33)
[2016-12-04] MEDS: REMOVE OLD NICODERM (NICOTINE) PATCH TD SCH (20:39)
[2016-12-04] MEDS: AMITRIPTYLINE HCL 25 MG TAB PO SCH (20:41)
[2016-12-04] MEDS ORDERED: HALOPERIDOL LACTATE 5 MG/ML AMP IM ONE (23:45)
[2016-12-04] MEDS: hydrALAZINE HCL 20 MG/ML VIAL IV PUSH PRN (23:59)
[2016-12-05] VITALS: BP 163/72; PULSE 94; RESP 20; TEMP 98.9; O2SAT 94
[2016-12-05 04:00] VITALS: BP 108/51; PULSE 88; RESP 19; TEMP 98.6; O2SAT 90
[2016-12-05 05:28] LABS: HEMATOCRIT 25.5 % (35.0-46.0); MEAN CELL VOLUME 77.8 FL (80.0-100.0); MEAN CORPUSCULAR HEMOGLOBIN 25.9 PG (27.0-34.0); MEAN CORPUSCULAR HGB CONC 33.3 % (32.0-36.0); PLATELET COUNT 288 TH/MM3 (150-450); RED BLOOD COUNT 3.28 MIL/MM3 (4.00-5.30); RED CELL DISTRIBUTION WIDTH 17.5 % (11.6-17.2); WHITE BLOOD COUNT 10.9 TH/MM3 (4.0-11.0)
[2016-12-05 05:34] LABS: HEMO FLAGS AUTO DIFF
[2016-12-05 05:44] LABS: POTASSIUM 3.4 MEQ/L (3.5-5.1)
[2016-12-05 05:50] LABS: BICARBONATE 25.3 MEQ/L (21.0-32.0); MAGNESIUM 2.5 MG/DL (1.5-2.5)
[2016-12-05 05:53] LABS: BANDS 1 % (0-6); EOSINOPHILS 1 % (0-4); NEUTROPHIL # MANUAL DIFF 8.3 TH/MM3 (1.8-7.7); POLYS (SEG NEUTROPHILS) 75 % (16-70); WBC DIFF SAMPLE 100
[2016-12-05 05:54] LABS: OVALOCYTES 1+ (NORMAL); PLATELET ESTIMATE SMEAR NORMAL (NORMAL); PLATELET MORPHOLOGY NORMAL (NORMAL); SCAN/DIFF FINAL DIFF MANUAL
[2016-12-05] MEDS: MEDIUM DOSE INSULIN NOVOLOG SUPPLEMENTAL SCALE SQ SCH ×2 (06:09→11:00)
[2016-12-05 08:30] VITALS: BP 129/54; PULSE 83; RESP 16; TEMP 99.5; O2SAT 94
[2016-12-05] MEDS: SODIUM CHLORIDE 0.9% FLUSH 5 ML FLUSH IVF SCH (09:00)
[2016-12-05] MEDS: HEPARIN SODIUM - SQ 10,000 UNITS/ML VIAL SQ SCH (09:22)
[2016-12-05] MEDS: THIAMINE HCL 100 MG TAB PO SCH (09:23)
[2016-12-05] MEDS: predniSONE 10 MG TAB PO SCH (09:23)
[2016-12-05] MEDS: CEFUROXIME AXETIL 500 MG TAB PO SCH (09:23)
[2016-12-05] MEDS: VENLAFAXINE HCL XR 75 MG CAP PO SCH (09:23)
[2016-12-05] MEDS: NICOTINE 21 MG/24 HR PATCH TD SCH (09:27)
[2016-12-05] MEDS: RESP: ALBUTEROL 2.5 MG/IPRATROPIUM 0.5 MG NEB (SCH) NEB ×2 (09:31→12:57)
[2016-12-05] MEDS: RESP: BUDESONIDE 0.5 MG/2 ML NEB NEB SCH (09:31)
[2016-12-05 09:32] VITALS: O2SAT 94
[2016-12-05] MEDS ORDERED: AMLO10 NG (09:46)
[2016-12-05] MEDS ORDERED: PRED20 PO (09:46)
[2016-12-05] MEDS ORDERED: CEFT500T3 PO (09:46)
[2016-12-05] MEDS ORDERED: IPRASOL NEB (09:46)
[2016-12-05] MEDS ORDERED: ALPR.25 PO (09:46)
--- NOTE | 2016-12-05 09:47 | HHI.DS ---
Discharge Summary Admission Date Nov 21, 2016 at 20:59 Discharge Date: Dec 05, 2016 Admitting Diagnosis Acute hypoxic respiratory failure (1) Acute respiratory failure with hypoxia and hypercapnia ICD Code: J96.01 Diagnosis: Principal (2) Chronic obstructive pulmonary disease with acute exacerbation ICD Code: J44.1 Diagnosis: Principal (3) Alcohol abuse, daily use ICD Code: F10.10 Diagnosis: Principal (4) Hypertension ICD Code: I10 Diagnosis: Principal (5) Systemic inflammatory response syndrome ICD Code: R65.10 Diagnosis: Principal (6) Sinus tachycardia ICD Code: R00.0 Diagnosis: Principal (7) Hyperglycemia ICD Code: R73.9 Diagnosis: Principal (8) Leukocytosis ICD Code: D72.829 Diagnosis: Principal Procedures Orotracheal intubation and mechanical ventilation Central venous catheter Brief History - From Admission 66-year-old female. Date of admission 11/22/2016. Past medical history includes COPD, EtOH, depression, chronic neck pain and peripheral neuropathy. She presented to [facility] with 2 day history of respiratory distress. She received 125 mg methylprednisolone and duonebs x3 by EVAC but arrived hypoxic, tachycardic tachypneic. She did not tolerate BiPAP due to anxiety. She was intubated in the emergency department. 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 CBC/BMP: 12/05/16 0505 12/05/16 0505 Significant Findings Laboratory Tests Test 12/03/16 12/03/16 12/04/16 12/04/16 19:45 20:45 04:50 07:15 White Blood Count 15.2 TH/MM3 (4.0-11.0) Hemoglobin 11.2 GM/DL 9.6 GM/DL (11.6-15.3) (11.6-15.3) Hematocrit 34.1 % 30.8 % (35.0-46.0) (35.0-46.0) Mean Corpuscular Volume 78.3 FL 78.2 FL (80.0-100.0) (80.0-100.0) Mean Corpuscular Hemoglobin 25.6 PG 24.4 PG (27.0-34.0) (27.0-34.0) Red Cell Distribution Width 18.7 % 18.2 % (11.6-17.2) (11.6-17.2) Neutrophils % (Manual) 84 % (16-70) 78 % (16-70) Lymphocytes % 8 % (9-44) Neutrophils # (Manual) 13.1 TH/MM3 8.0 TH/MM3 (1.8-7.7) (1.8-7.7) Metamyelocytes 2 % (0-1) Target Cells 1+ (NORMAL) Ovalocytes 1+ (NORMAL) Hemoglobin A1c 6.9 % (4.3-6.0) Potassium Level 3.4 MEQ/L (3.5-5.1) Chloride Level 109 MEQ/L 109 MEQ/L (98-107) (98-107) Random Glucose 172 MG/DL 172 MG/DL (74-106) (74-106) Blood Urea Nitrogen 19 MG/DL (7-18) Red Blood Count 3.94 MIL/MM3 (4.00-5.30) Mean Corpuscular Hemoglobin 31.2 % Concent (32.0-36.0) Test 12/05/16 05:05 Red Blood Count 3.28 MIL/MM3 (4.00-5.30) Hemoglobin 8.5 GM/DL (11.6-15.3) Hematocrit 25.5 % (35.0-46.0) Mean Corpuscular Volume 77.8 FL (80.0-100.0) Mean Corpuscular Hemoglobin 25.9 PG (27.0-34.0) Red Cell Distribution Width 17.5 % (11.6-17.2) Neutrophils % (Manual) 75 % (16-70) Neutrophils # (Manual) 8.3 TH/MM3 (1.8-7.7) Ovalocytes 1+ (NORMAL) Potassium Level 3.4 MEQ/L (3.5-5.1) Chloride Level 108 MEQ/L (98-107) Random Glucose 152 MG/DL (74-106) Calcium Level 8.2 MG/DL (8.5-10.1) Imaging Last Impressions Chest X-Ray 12/04/16 0600 Signed Impressions: Service Date/Time: Sunday, December 04, 2016 03:58 - CONCLUSION: 1. Cardiomegaly and findings of congestive heart failure. There has been no significant change when compared to the prior exam. Abad Cannon MD Head CT 11/25/16 0600 Signed Impressions: Service Date/Time: Friday, November 25, 2016 08:06 - CONCLUSION: Minimal sinus disease otherwise negative. Bebeto Donis MD FACR Chest CT 11/23/16 0000 Signed Impressions: Service Date/Time: Wednesday, November 23, 2016 09:38 - CONCLUSION: 1. Minimal patchy densities in lower lobes could be atelectasis or minimal inflammation. 2. No consolidation or mass. 3. Scarring the right upper lobe. 4. Nonspecific 8 mm nodular density right upper lobe posteriorly. Follow up CT chest in 6 months recommended for stability. Julius Ayala MD PE at Discharge GENERAL: Well-developed, well-nourished, in no acute distress. alert and orientated to person, 2017, [place], ENT: Head is normocephalic without any lesions or masses noted. Facial features are symmetric. Eyes: Extraocular muscles are intact. Conjunctivae were clear. NECK: Supple without any masses. Trachea midline no deviation. No JVD, CARDIAC: Regular rhythm, regular rate. S1/S2 are heard. No murmurs gallops or rubs. LUNGS: Clear to auscultation bilaterally. No wheeze, rhonchi or rales. No use of accessory muscles on inspiration or expiration. ABDOMEN: Soft, nontender. Nondistended. Bowel sounds heard in all 4 quadrants. No organomegaly or masses. Negative rebound, negative guarding EXTREMITIES: No edema, pulses are equal bilaterally. No cyanosis or clubbing NEUROLOGY: Mood and affect appear appropriate. Cranial nerves II through XII grossly intact. Moving all extremities, speech is clear Hospital Course The patient was on the ventilator for 7 days and was extubated December 01. Steroids were weaned. She remained stable and was weaned to nasal cannula or room air. The patient was encouraged on smoking cessation. The patient remained stable and was downgraded to [facility] floor. She was diuresed from fluid overload. 2-D echocardiogram revealed preserved left ventricular ejection fraction. Yesterday evening the patient did have some mild confusion and became agitated and angry with her nurse, as she wanted to go home. This morning the patient is alert, oriented ball and acknowledges she was mildly confused last night and lost time while in the ICU. Cognition clear. She has been cooperative with the nurse. The patient is weak from her ICU course and needs further physical therapy. She is agreeable for discharge to [facility] facility. Pt Condition on Discharge: Stable Discharge Disposition: Discharge to SNF Discharge Time: > 30 minutes Discharge Instructions DIET: Follow Instructions for: As Tolerated, No Restrictions Activities you can perform: Regular-No Restrictions New Medications: Prednisone (Prednisone) 20 Mg Tab 20 MG PO DIRECTED 40 MG twice a day x 3 days, then 20 MG daily x 3 days, then 10 MG daily x 3 days Inflammation #11 Ref 0 TAB Alprazolam (Xanax) 0.25 Mg Tab 0.25 MG PO Q8H PRN ANXIETY #20 TAB Amlodipine (Norvasc) 10 Mg Tab 10 MG NG DAILY Blood Pressure Management #30 TAB Cefuroxime (Ceftin) 500 Mg Tab 500 MG PO Q12HR Infection #10 TAB Ipratropium-Albuterol Neb (Duoneb) 0.5-2.5 Mg/3 Ml Neb 1 AMPULE NEB QID NEB copd #120 ML Continued Medications: Albuterol 8.5 GM Inh (Proair Hfa 8.5 GM Inh) 90 Mcg/Act Aer 1 PUFF INH Q4H 108 mcg/actuation PRN SHORTNESS OF BREATH #1 Ref 0 INHALER Amitriptyline HCl (Elavil) 25 Mg Tab 1 TAB PO HS Venlafaxine ER 24 HR (Effexor XR 24 HR) 150 Mg Cap 150 MG PO DAILY #30 Ref 0 Brea Jin MD Dec 05, 2016 09:46
[2016-12-05 14:08] VITALS: BP 122/58; PULSE 88; RESP 16; TEMP 98.9; O2SAT 50
== END 2016-12-05 14:19 | DRG 207 ==
LOC: PHED 19:17 → PHEDA 20:59 → PHICU 11-22 01:56
PROVIDERS: ADMIT Family Medicine; ATTEND Family Medicine
PROC: 5A1955Z Respiratory Ventilation, Greater than 96 Consecutive Hours (ICD-10-PCS; principal; 2016-11-21)
PROC: 0BH17EZ Insertion of Endotracheal Airway into Trachea, Via Natural or Artificial Opening (ICD-10-PCS; 2016-11-21)
PROC: 5A09357 Assistance with Respiratory Ventilation, Less than 24 Consecutive Hours, Continuous Positive Airway Pressure (ICD-10-PCS; 2016-11-21)
PROC: 05HM33Z Insertion of Infusion Device into Right Internal Jugular Vein, Percutaneous Approach (ICD-10-PCS; 2016-11-22)
DX: J96.01 Acute respiratory failure with hypoxia (principal); E87.0 Hyperosmolality and hypernatremia; E87.2 Acidosis; I95.9 Hypotension, unspecified; R65.10 Systemic inflammatory response syndrome (SIRS) of non-infectious origin without acute organ dysfunction; E83.39 Other disorders of phosphorus metabolism; J44.1 Chronic obstructive pulmonary disease with (acute) exacerbation; E87.70 Fluid overload, unspecified; G62.9 Polyneuropathy, unspecified; I10 Essential (primary) hypertension; J96.02 Acute respiratory failure with hypercapnia; F10.10 Alcohol abuse, uncomplicated; R00.0 Tachycardia, unspecified; R73.9 Hyperglycemia, unspecified; D72.829 Elevated white blood cell count, unspecified; G89.29 Other chronic pain; M54.2 Cervicalgia; F32.9 Major depressive disorder, single episode, unspecified; F41.0 Panic disorder [episodic paroxysmal anxiety]; F17.210 Nicotine dependence, cigarettes, uncomplicated; E78.00 Pure hypercholesterolemia, unspecified; I25.10 Atherosclerotic heart disease of native coronary artery without angina pectoris; M54.9 Dorsalgia, unspecified; D50.9 Iron deficiency anemia, unspecified; R91.1 Solitary pulmonary nodule; R74.8 Abnormal levels of other serum enzymes; R94.01 Abnormal electroencephalogram [EEG]; I07.1 Rheumatic tricuspid insufficiency; T38.0X5A Adverse effect of glucocorticoids and synthetic analogues, initial encounter
CPT/HCPCS: 31500; 36556; 36600; 70450; 71010; 71250; 76937; 80048; 80053; 81001; 82140; 82550; 82805; 82948; 83036; 83540; 83550; 83605; 83735; 83880; 84100; 84484; 85007; 85025; 85027; 85060; 85610; 85730; 87040; 87070; 87205; 87641; 87804; 93005; 93306; 94002; 94003; 94150; 94640; 94664; 94667; 94668; 95819; 96374; 96375; 99292; C9113; C9399; J0330; J0360; J0456; J0696; J1630; J1644; J1815; J1940; J2060; J2250; J2370; J2405; J2765; J2920; J3010; J3411; J3480; J7030; J7040; J7050; J7060; J7512; J7613; J7626

== ENCOUNTER 2016-12-27 01:31 | Emergency (ER) | payer OTHER, MEDICARE ==
[~2016-12-27] VITALS: Ht 162.6 cm; Wt 71.0 kg
[~2016-12-27 01:31] MED LIST changes: -ALBU1AER INH; +ALBUAER3 INH; +ALPR.25 PO; +AMIT1TAB79 PO; +AMLO10 NG; -AZIT250T74 PO; +CEFT500T3 PO; -CEFU1TAB42 PO; +EFFE150C PO; +IPRASOL NEB; -LISI10 PO; -METF500 PO; +PRED20 PO; -PRED5PAK PO; -VENL75 PO
[2016-12-27 01:37] VITALS: BP 131/75; PULSE 93; RESP 18; TEMP 97.9; O2SAT 97
[2016-12-27 01:55] VITALS: BP 131/75; PULSE 93; RESP 18; TEMP 97.9; O2SAT 97
[2016-12-27] MEDS ORDERED: GABA100C4 PO (01:56)
[2016-12-27] MEDS ORDERED: VENTAER INH (01:56)
[2016-12-27] MEDS ORDERED: FLUT1INH INH (01:56)
[2016-12-27 02:57] VITALS: BP 133/65; PULSE 96; RESP 18; O2SAT 99
[2016-12-27 03:37] LABS: POTASSIUM 3.7 MEQ/L (3.5-5.1)
[2016-12-27 03:40] LABS: BICARBONATE 28.8 MEQ/L (21.0-32.0)
--- NOTE | 2016-12-27 03:55 | RADHPO ---
EXAM DATE/TIME: 12/27/2016 03:37 [facility] COMPARISON: No previous studies available for comparison. INDICATIONS : Left lower leg pain for 1 week with no known injury MEDICAL HISTORY : None. SURGICAL HISTORY : None. ENCOUNTER: Initial ACUITY: 1 week PAIN SCORE: 7/10 LOCATION: Left medial and proximal lower leg FINDINGS: Two view examination of the left tibia demonstrates no evidence of fracture or dislocation. Bony min eralization is normal. The soft tissue structures are intact. No radiopaque foreign bodies. CONCLUSION: No focal bony abnormality seen. Yoan Villalobos MD on December 27, 2016 at 3:52 Board Certified Radiologist. This report was verified electronically.
[2016-12-27 04:08] VITALS: BP 135/65; PULSE 93; RESP 18; O2SAT 96
[2016-12-27 04:20] LABS: AUTOMATED NEUTROPHIL # 3.7 TH/MM3 (1.8-7.7); BASOPHIL # 0.1 TH/MM3 (0-0.2); BASOPHIL % 0.8 % (0.0-2.0); EOSINOPHIL # 0.4 TH/MM3 (0-0.4); EOSINOPHIL % 5.3 % (0.0-4.0); HEMATOCRIT 31.8 % (35.0-46.0); HEMO FLAGS DIFF FINAL; LYMPH % 34.8 % (9.0-44.0); LYMPHOCYTE # 2.6 TH/MM3 (1.0-4.8); MEAN CELL VOLUME 81.1 FL (80.0-100.0); MEAN CORPUSCULAR HEMOGLOBIN 25.5 PG (27.0-34.0); MEAN CORPUSCULAR HGB CONC 31.4 % (32.0-36.0); MONO % 10.7 % (0.0-8.0); NEUT % 48.4 % (16.0-70.0); PLATELET COUNT 452 TH/MM3 (150-450); RED BLOOD COUNT 3.92 MIL/MM3 (4.00-5.30); WHITE BLOOD COUNT 7.6 TH/MM3 (4.0-11.0)
--- NOTE | 2016-12-27 04:49 | RADHPO ---
EXAM DATE/TIME: 12/27/2016 04:12 [facility] COMPARISON: No previous studies available for comparison. INDICATIONS : Left leg pain. MEDICAL HISTORY : Hypercholesterolemia. Chronic obstructive pulmonary disease. Coronary artery disease. Blood tranf usion. SURGICAL HISTORY : Cholecystectomy. Carotid endarterectomy. Umbilical hernia repair. Lumbar surgery. ENCOUNTER: Initial ACUITY: 2 day PAIN SCORE: 5/10 LOCATION: Left leg. TECHNIQUE: Venous ultrasound of the leg was performed from the inguinal ligament to the proximal calf. Real-yohana e, color Doppler and spectral tracing, compression and augmentation techniques were used. FINDINGS: There is normal compressibility of the deep venous system from the inguinal region to the proximal ca lf. No echogenic clot is seen in the lumen of the common femoral, femoral, popliteal, and posterior tibial veins. There is a normal response of the venous system to proximal and distal augmentation an d respiration. CONCLUSION: The study is negative for deep venous thrombosis left lower extremity. Yoan Villalobos MD on December 27, 2016 at 4:47 Board Certified Radiologist. This report was verified electronically.
--- NOTE | 2016-12-27 04:51 | PD ---
HPI Chief Complaint: Pain: Acute or Chronic Time Seen by Provider: 04:44 Travel History International Travel<30 days: No Contact w/Intl Traveler<30days: No Traveled to known affect area: No History of Present Illness HPI 66-year-old female presents to the emergency department by EMS transport for one day of left lower leg tenderness and redness and warmth. Patient denies injury. Patient is concerned that she has a DVT and was encouraged by the on- call [employer] nurse to come to the emergency department to have an ultrasound. Patient does not report any new shortness of breath pleuritic chest pain or chest pain. Patient's had no recent long distance travel surgical procedure but was recently hospitalized in November for was 2 weeks due to exacerbation of COPD with respiratory failure and required intubation. Patient's had no recent febrile illness. Patient denies productive cough. Patient states no prior history of DVT or PE. Patient does note that the proximal lower leg is tender on the medial aspect with some localized erythema warmth and states this is a new finding. PFSH Past Medical History Narrative Medical COPD dyslipidemia anxiety peripheral neuropathy CAD tobacco use until 10 days ago nursing notes reviewed Arthritis: No Asthma: No Autoimmune Disease: No Blood Disorders: No Anxiety: No Depression: No Heart Rhythm Problems: No Cancer: No Cardiovascular Problems: Yes High Cholesterol: Yes Chemotherapy: No Chest Pain: No Congestive Heart Failure: No COPD: Yes Cerebrovascular Accident: No Coronary Artery Disease: Yes Diabetes: No Diminished Hearing: No Endocrine: No Gastrointestinal Disorders: No GERD: No Glaucoma: No Genitourinary: No Headaches: No Hepatitis: No Hiatal Hernia: No Heparin Induced Thrombocytopen: No Hypertension: No Immune Disorder: No Kidney Stones: No Musculoskeletal: Yes Neurologic: No Psychiatric: No Reproductive: No Respiratory: Yes Immunizations Current: Yes Migraines: No Myocardial Infarction: No Radiation Therapy: No Renal Failure: No Seizures: No Sickle Cell Disease: No Sleep Apnea: No Thyroid Disease: No Ulcer: No Tetanus Vaccination: Unknown Influenza Vaccination: Yes ?: Not Menopausal: Yes Past Surgical History Abdominal Surgery: Yes AICD: No Appendectomy: No Arteriovenous Shunt: No Body Medical Devices: none Cardiac Surgery: Yes (right carotid 2008) Cholecystectomy: Yes Ear Surgery: No Endocrine Surgery: No Eye Surgery: No Genitourinary Surgery: No Gynecologic Surgery: No Insulin Pump: No Joint Replacement: No Mastectomy: No Neurologic Surgery: No Oral Surgery: No Pacemaker: No Thoracic Surgery: No Other Surgery: Yes (UMBILICAL HERNIA REPAIR) Social History Alcohol Use: Yes (4 daily) Tobacco Use: No (QUIT 10 DAYS AGO) Substance Use: No Allergies-Medications (Allergen,Severity, Reaction): Coded Allergies: Codeine (Verified Adverse Reaction, Severe, "VIOLENTLY NAUSEATED", 12/27/16 ) Reported Meds & Prescriptions Reported Meds & Active Scripts Active Xanax (Alprazolam) 0.25 Mg Tab 0.25 Mg PO Q8H PRN Reported Ventolin Hfa 18 GM Inh (Albuterol Sulfate) 90 Mcg/Act Aer 2 Puff INH Q4-6H PRN Gabapentin 100 Mg Cap 100 Mg PO TID Breo Ellipta Inh (Fluticasone/Vilanterol) 100-25 Mcg/Act Inh 1 Puff INH DAILY Use daily at the same time. Elavil (Amitriptyline HCl) 25 Mg Tab 1 Tab PO HS Effexor XR 24 HR (Venlafaxine HCl) 150 Mg Cap 150 Mg PO DAILY Review of Systems Except as stated in HPI: all other systems reviewed are Neg General / Constitutional: No: Fever, Chills HENT: No: Congestion Cardiovascular: Positive: Edema, No: Chest Pain or Discomfort Respiratory: No: Shortness of Breath, Hemoptysis, Pleuritic Pain Gastrointestinal: No: Vomiting, Abdominal Pain Genitourinary: No: Flank Pain Musculoskeletal: Positive: Myalgias, Arthralgias, Edema, Pain, No: Limited ROM Neurologic: No: Weakness (left lower leg) Psychiatric: No: Anxiety Hematologic/Lymphatic: No: Easy Bruising Physical Exam Narrative GENERAL: Well-developed well-nourished female in no acute distress no respiratory distress; room air O2 saturation 97-99% SKIN: Warm and dry. HEAD: Normocephalic. EYES: No scleral icterus. No injection or drainage. NECK: Supple, trachea midline. No JVD or lymphadenopathy. CARDIOVASCULAR: Regular rate and rhythm without murmurs, gallops, or rubs. RESPIRATORY: Breath sounds equal bilaterally. No accessory muscle use. GASTROINTESTINAL: Abdomen soft, non-tender, nondistended. MUSCULOSKELETAL: No cyanosis, or edema. Attention left lower leg area of proximal lower leg medial erythema just distal to the knee with tenderness to palpation and mild warmth with palpable superficial vein cording/superficial thrombophlebitis findings no calf tenderness no Homans sign dorsalis pedis pulse 2+ to palpation. Bilateral pedal edema. No ascending erythema bilaterally. BACK: Nontender without obvious deformity. No CVA tenderness. Data Data Last Documented VS Vital Signs Date Time Temp Pulse Resp B/P Pulse Ox O2 Delivery O2 Flow Rate FiO2 12/27/16 04:08 94 18 12/27/16 04:08 135/65 96 Room Air 12/27/16 01:55 97.9 Orders Complete Blood Count With Diff (12/27/16 03:00) Basic Metabolic Panel (Bmp) (12/27/16 03:00) B-Type Natriuretic Peptide (12/27/16 03:00) Us Leg Venous Doppler (12/27/16 ) Tibia/Fibula (Ap/Lat) (12/27/16 ) Labs Laboratory Tests Test 12/27/16 03:15 White Blood Count 7.6 TH/MM3 Red Blood Count 3.92 MIL/MM3 Hemoglobin 10.0 GM/DL Hematocrit 31.8 % Mean Corpuscular Volume 81.1 FL Mean Corpuscular Hemoglobin 25.5 PG Mean Corpuscular Hemoglobin 31.4 % Concent Red Cell Distribution Width 21.0 % Platelet Count 452 TH/MM3 Mean Platelet Volume 7.3 FL Neutrophils (%) (Auto) 48.4 % Lymphocytes (%) (Auto) 34.8 % Monocytes (%) (Auto) 10.7 % Eosinophils (%) (Auto) 5.3 % Basophils (%) (Auto) 0.8 % Neutrophils # (Auto) 3.7 TH/MM3 Lymphocytes # (Auto) 2.6 TH/MM3 Monocytes # (Auto) 0.8 TH/MM3 Eosinophils # (Auto) 0.4 TH/MM3 Basophils # (Auto) 0.1 TH/MM3 CBC Comment DIFF FINAL Differential Comment Sodium Level 143 MEQ/L Potassium Level 3.7 MEQ/L Chloride Level 107 MEQ/L Carbon Dioxide Level 28.8 MEQ/L Anion Gap 7 MEQ/L Blood Urea Nitrogen 5 MG/DL Creatinine 0.74 MG/DL Estimat Glomerular Filtration 79 ML/MIN Rate Random Glucose 136 MG/DL Calcium Level 8.6 MG/DL B-Type Natriuretic Peptide 33 PG/ML MDM Medical Decision Making Medical Screen Exam Complete: Yes Emergency Medical Condition: Yes Medical Record Reviewed: Yes Interpretation(s) Last Impressions Tibia/Fibula X-Ray 12/27/16 0000 Signed Impressions: Service Date/Time: Tuesday, December 27, 2016 03:37 - CONCLUSION: No focal bony abnormality seen. Yoan Villalobos MD CBC & BMP Diagram 12/27/16 03:15 Vital Signs Date Time Temp Pulse Resp B/P Pulse Ox O2 Delivery O2 Flow Rate FiO2 12/27/16 04:08 94 18 12/27/16 04:08 93 18 135/65 96 Room Air 12/27/16 02:57 96 18 133/65 99 Room Air 12/27/16 01:58 93 18 12/27/16 01:55 97.9 93 18 131/75 97 12/27/16 01:37 97.9 93 18 131/75 97 LLE US: CONCLUSION: The study is negative for deep venous thrombosis left lower extremity. Yoan Villalobos MD on December 27, 2016 at 4:47 Board Certified Radiologist. This report was verified electronically. Differential Diagnosis Superficial thrombophlebitis, DVT, focal cellulitis, stress fracture, pedal edema, hypoalbuminemia/hypoproteinemia, renal insufficiency, CHF Narrative Course Patient with palpable reproducible focal area of cording of the saphenous vein at the proximal lower leg just distal to the knee medial aspect. In view of recent hospitalization however we will obtain ultrasound to exclude DVT. No recent injury however patient also with bony tenderness or obtain x-ray to evaluate for stress fracture or bony inflammatory process. Due to peel edema will renal metabolic panel to assess renal function and electrolyte status. Also although lung sounds are clear patient has no chest pain or shortness of breath will obtain BNP as well. Diagnosis Primary Impression: Thrombophlebitis of leg, left, superficial Additional Impression: Pedal edema Referrals: Primary Care Physician call for appointment Patient Instructions: General Instructions Additional Instructions: Elevate lower extremities Follow-up with primary care provider Apply warm compresses to left lower leg intermittently for comfort purposes over the next 2-3 days Use ibuprofen/Advil/Motrin 2-3 tablets as often as every 6-8 hours as needed for pain associated inflammation; take medication with food or with Pepcid OTC Return to the emergency department for any concerns or change in condition Take acetaminophen/Tylenol as needed for fever 100.4F or greater Disposition: 01 DISCHARGE HOME Condition: Stable Concetta Serrano MD Dec 27, 2016 04:51
[2016-12-27] MEDS ORDERED: IBUPROFEN 600 MG TAB PO ONE (05:00)
[2016-12-27 05:13] VITALS: BP 125/63
== END 2016-12-27 05:16 | disposition home or self-care (01) ==
LOC: PHED 01:31
DX: I80.02 Phlebitis and thrombophlebitis of superficial vessels of left lower extremity (principal); R60.0 Localized edema; J44.9 Chronic obstructive pulmonary disease, unspecified; E78.5 Hyperlipidemia, unspecified; G62.9 Polyneuropathy, unspecified; I25.10 Atherosclerotic heart disease of native coronary artery without angina pectoris; Z87.891 Personal history of nicotine dependence
CPT/HCPCS: 73590; 80048; 83880; 85025; 93971; 99284

== ENCOUNTER 2017-01-25 15:32 | Inpatient (IN) | payer OTHER, MEDICARE ==
[~2017-01-25] VITALS: Ht 167.6 cm; Wt 71.2 kg
[2017-01-25] VITALS (10 sets, daily range): BP systolic 132–176; BP diastolic 63–89; PULSE 114–126; RESP 20–22; TEMP 97.8–98.8; O2SAT 88–98
[~2017-01-25 15:32] MED LIST changes: -ALBUAER3 INH; -AMLO10 NG; -CEFT500T3 PO; +FLUT1INH INH; +GABA100C4 PO; -IPRASOL NEB; -PRED20 PO; +VENTAER INH
[2017-01-25] MEDS ORDERED: SODIUM CHLORIDE 0.9% FLUSH 10 ML FLUSH IVF PRN (15:45)
--- NOTE | 2017-01-25 15:50 | PD ---
HPI Chief Complaint: short of breath Time Seen by Provider: 15:39 Travel History International Travel<30 days: No Contact w/Intl Traveler<30days: No Traveled to known affect area: No History of Present Illness HPI The patient was seen and examined in the presence of the nurse. She complains of shortness of breath. Symptoms are moderately severe. She is actively wheezing and congested. She has history of COPD and is nebulizer dependent. She quit smoking 38 days ago. She did for nebulizers at home and it didn't help so she called paramedics. They gave her another 2 in route as well as IV Solu-Medrol. She has just completed her sixth nebulizer in a row and she feels somewhat jittery with a racing heartbeat. The nebulizers didn't help that much. Duration one day PFSH Past Medical History Arthritis: No Asthma: No Autoimmune Disease: No Blood Disorders: No Anxiety: No Depression: No Heart Rhythm Problems: No Cancer: No Cardiovascular Problems: Yes High Cholesterol: Yes Chemotherapy: No Chest Pain: No Congestive Heart Failure: No COPD: Yes Cerebrovascular Accident: No Coronary Artery Disease: Yes Diabetes: No Diminished Hearing: No Endocrine: No Gastrointestinal Disorders: No GERD: No Glaucoma: No Genitourinary: No Headaches: No Hepatitis: No Hiatal Hernia: No Heparin Induced Thrombocytopen: No Hypertension: No Immune Disorder: No Kidney Stones: No Musculoskeletal: Yes Neurologic: No Psychiatric: No Reproductive: No Respiratory: Yes Immunizations Current: Yes Migraines: No Myocardial Infarction: No Radiation Therapy: No Renal Failure: No Seizures: No Sickle Cell Disease: No Sleep Apnea: No Thyroid Disease: No Ulcer: No Menopausal: Yes Past Surgical History Abdominal Surgery: Yes AICD: No Appendectomy: No Arteriovenous Shunt: No Body Medical Devices: none Cardiac Surgery: Yes (right carotid 2009) Cholecystectomy: Yes Ear Surgery: No Endocrine Surgery: No Eye Surgery: No Genitourinary Surgery: No Gynecologic Surgery: No Insulin Pump: No Joint Replacement: No Mastectomy: No Neurologic Surgery: No Oral Surgery: No Pacemaker: No Thoracic Surgery: No Other Surgery: Yes (UMBILICAL HERNIA REPAIR) Social History Alcohol Use: Yes (4 daily) Tobacco Use: No (QUIT 10 DAYS AGO) Substance Use: No Allergies-Medications (Allergen,Severity, Reaction): Coded Allergies: Codeine (Verified Adverse Reaction, Severe, "VIOLENTLY NAUSEATED", 01/25/17) Reported Meds & Prescriptions Reported Meds & Active Scripts Active Reported Ventolin Hfa 18 GM Inh (Albuterol Sulfate) 90 Mcg/Act Aer 2 Puff INH Q4-6H PRN Gabapentin 100 Mg Cap 300 Mg PO QID Breo Ellipta Inh (Fluticasone/Vilanterol) 100-25 Mcg/Act Inh 1 Puff INH DAILY Use daily at the same time. Effexor XR 24 HR (Venlafaxine HCl) 150 Mg Cap 150 Mg PO DAILY Review of Systems General / Constitutional: No: Fever Eyes: No: Visual changes HENT: Positive: Congestion, No: Headaches Cardiovascular: No: Chest Pain or Discomfort Respiratory: Positive: Cough, Shortness of Breath, Wheezing Gastrointestinal: No: Abdominal Pain Genitourinary: No: Dysuria Musculoskeletal: No: Pain Skin: No Rash Neurologic: No: Weakness Psychiatric: No: Depression Endocrine: No: Polydipsia Hematologic/Lymphatic: No: Easy Bruising Physical Exam Narrative GENERAL: Well-nourished, well-developed patient who is actively wheezing. SKIN: Focused skin assessment reveals no rash and nodules. Skin is Warm and dry. HEAD: Atraumatic. Normocephalic. EYES: Pupils equal and round. No scleral icterus. No injection or drainage. ENT: No nasal bleeding or discharge. Mucous membranes pink and moist. NECK: Trachea midline. No JVD. CARDIOVASCULAR: Regular rate and rhythm. No murmur appreciated. RESPIRATORY: Positive accessory muscle use. Diffuse expiratory wheezing with rhonchi. Breath sounds equal bilaterally. GASTROINTESTINAL: Abdomen soft, non-tender, nondistended. Hepatic and splenic margins not palpable. MUSCULOSKELETAL: No obvious deformities. No clubbing. No cyanosis. No edema. NEUROLOGICAL: Awake and alert. No obvious cranial nerve deficits. Motor grossly within normal limits. Normal speech. PSYCHIATRIC: Appropriate mood and affect; insight and judgment normal. Data Data Last Documented VS Vital Signs Date Time Temp Pulse Resp B/P Pulse Ox O2 Delivery O2 Flow Rate FiO2 01/25/17 16:35 114 20 156/69 94 Nasal Cannula 2 01/25/17 16:10 98.5 Orders Complete Blood Count With Diff (01/25/17 15:43) Basic Metabolic Panel (Bmp) (01/25/17 15:43) Iv Access Insert/Monitor (01/25/17 15:43) Ecg Monitoring (01/25/17 15:43) Oximetry (01/25/17 15:43) Chest, Single Ap (01/25/17 15:43) Sodium Chloride 0.9% Flush (Ns Flush) (01/25/17 15:45) Admit Order (Ed Use Only) (01/25/17 16:34) Labs Laboratory Tests Test 01/25/17 16:00 White Blood Count 12.7 TH/MM3 Red Blood Count 4.06 MIL/MM3 Hemoglobin 11.1 GM/DL Hematocrit 33.1 % Mean Corpuscular Volume 81.5 FL Mean Corpuscular Hemoglobin 27.3 PG Mean Corpuscular Hemoglobin 33.5 % Concent Red Cell Distribution Width 18.2 % Platelet Count 445 TH/MM3 Mean Platelet Volume 7.6 FL Neutrophils (%) (Auto) 45.7 % Lymphocytes (%) (Auto) 27.5 % Monocytes (%) (Auto) 4.9 % Eosinophils (%) (Auto) 19.4 % Basophils (%) (Auto) 2.5 % Neutrophils # (Auto) 5.8 TH/MM3 Lymphocytes # (Auto) 3.5 TH/MM3 Monocytes # (Auto) 0.6 TH/MM3 Eosinophils # (Auto) 2.5 TH/MM3 Basophils # (Auto) 0.3 TH/MM3 CBC Comment DIFF FINAL Differential Comment MDM Medical Decision Making Medical Screen Exam Complete: Yes Emergency Medical Condition: Yes Medical Record Reviewed: Yes Differential Diagnosis Differential diagnosis includes COPD, asthma, pneumonia, bronchitis, CHF Narrative Course I have reviewed the patient's electronic medical record. Patient's been here multiple times recently for COPD exacerbations IV placed Patient has just finished her sixth nebulizer in short order and she is jittery and tachycardic so I'm going to hold off on further nebulizer treatments at this time I reviewed her chest x-ray which is normal She's had IV steroid CBC shows minimal leukocytosis and mild anemia Metabolic profile shows an recollected so will be another hour but will be reviewed Room air saturation is 91-92% I reviewed her EKG which shows sinus tachycardia without ectopy or ST elevation Extended cardiac monitoring reveals sinus rhythm without ectopy On recheck she is still dyspneic and wheezing Not stable for outpatient follow-up I reviewed with hospitalist who will observe her in the hospital for acute exacerbation of chronic COPD Diagnosis Primary Impression: Chronic obstructive pulmonary disease with acute exacerbation Admitting Information Admitting Physician Requests: Observation Martin De La Torre MD Jan 25, 2017 15:50
[2017-01-25 16:08] LABS: AUTOMATED NEUTROPHIL # 5.8 TH/MM3 (1.8-7.7); BASOPHIL # 0.3 TH/MM3 (0-0.2); BASOPHIL % 2.5 % (0.0-2.0); EOSINOPHIL # 2.5 TH/MM3 (0-0.4); EOSINOPHIL % 19.4 % (0.0-4.0); HEMATOCRIT 33.1 % (35.0-46.0); HEMO FLAGS DIFF FINAL; LYMPH % 27.5 % (9.0-44.0); LYMPHOCYTE # 3.5 TH/MM3 (1.0-4.8); MEAN CELL VOLUME 81.5 FL (80.0-100.0); MEAN CORPUSCULAR HEMOGLOBIN 27.3 PG (27.0-34.0); MEAN CORPUSCULAR HGB CONC 33.5 % (32.0-36.0); MONO % 4.9 % (0.0-8.0); NEUT % 45.7 % (16.0-70.0); PLATELET COUNT 445 TH/MM3 (150-450); RED BLOOD COUNT 4.06 MIL/MM3 (4.00-5.30); RED CELL DISTRIBUTION WIDTH 18.2 % (11.6-17.2); WHITE BLOOD COUNT 12.7 TH/MM3 (4.0-11.0)
--- NOTE | 2017-01-25 16:13 | RADHPO ---
EXAM DATE/TIME: 01/25/2017 15:49 [facility] COMPARISON: CHEST SINGLE AP, December 04, 2016, 3:58. INDICATIONS : Shortness of breath. MEDICAL HISTORY : Chronic obstructive pulmonary disease. Hypertension SURGICAL HISTORY : Cholecystectomy. ENCOUNTER: Initial ACUITY: 1 day PAIN SCORE: 0/10 LOCATION: Bilateral chest FINDINGS: A single view of the chest demonstrates the lungs to be symmetrically aerated without evidence of mas s, infiltrate or effusion. The cardiomediastinal contours are unremarkable. Osseous structures are stable CONCLUSION: No acute disease. The previously noted congestive heart failure appears to have reso lved. Lewis Armas MD on January 25, 2017 at 16:11 Board Certified Radiologist. This report was verified electronically.
[2017-01-25 17:20] LABS: POTASSIUM 4.2 MEQ/L (3.5-5.1)
[2017-01-25 17:24] LABS: BICARBONATE 24.7 MEQ/L (21.0-32.0)
[2017-01-25] MEDS ORDERED: RESP: IPRATROPIUM 0.5 MG/2.5 ML NEB INH PRN (18:00)
[2017-01-25] MEDS ORDERED: BISACODYL 10 MG SUPP RECTAL PRN (18:00)
[2017-01-25] MEDS ORDERED: SODIUM CHLORIDE 0.9% FLUSH 10 ML FLUSH IV FLUSH PRN (18:00)
[2017-01-25] MEDS ORDERED: NALOXONE HCL 0.4 MG/ML AMP IV PRN (18:00)
[2017-01-25] MEDS: GABAPENTIN 100 MG CAP PO SCH (18:13)
[2017-01-25] MEDS: predniSONE 20 MG TAB PO SCH (18:13)
[2017-01-25] MEDS: HEPARIN SODIUM - SQ 10,000 UNITS/ML VIAL SQ SCH (18:14)
[2017-01-25] MEDS ORDERED: BENZONATATE 100 MG CAP PO ONE (20:15)
[2017-01-25] MEDS: IBUPROFEN 400 MG TAB PO PRN (20:43)
[2017-01-25] MEDS: SODIUM CHLORIDE 0.9% FLUSH 10 ML FLUSH IV FLUSH SCH (20:44)
[2017-01-25 21:06] LABS: BLOOD GAS BASE EXCESS -1.6 mmol/L (-2-2); BLOOD GAS CARBOXYHEMOGLOBIN 1.2 % (0-4); BLOOD GAS HCO3 24 mmol/L (22-26); BLOOD GAS METHEMOGLOBIN 1.1 % (0-2); BLOOD GAS O2 HGB SATURATION 92 % (90-100); BLOOD GAS OXYGEN CONTENT 14.3 Vol % (12.0-20.0); BLOOD GAS PCO2 47 mmHg (38-42); BLOOD GAS PO2 76 mmHg (61-120); BLOOD GAS TOTAL HGB 10.9 G/DL (12.0-16.0); CRITICAL VALUE NO; DRAW SITE RT RADIAL; LITER FLOW 2 L/M; NUMBER OF ARTERIAL PUNCTURES 1; OXYGEN DEVICE NASAL CANNULA; STAT NO; ULNAR PULSE PRESENT
[2017-01-25] MEDS: RESP: IPRATROPIUM 0.5 MG/2.5 ML NEB INH SCH (21:14)
[2017-01-25] MEDS ORDERED: IOHEXOL 350 MG/ML 10 ML VIAL (for RAD DIAG) IV ONE (23:54)
[2017-01-26] VITALS (8 sets, daily range): BP systolic 118–208; BP diastolic 62–92; PULSE 53–125; RESP 14–20; TEMP 95.5–98.1; O2SAT 94–100
--- NOTE | 2017-01-26 00:24 | RADHPO ---
EXAM DATE/TIME: 01/25/2017 23:39 [facility] COMPARISON: No previous studies available for comparison. INDICATIONS : Shortness of breath. Elevated D-Dimer. IV CONTRAST: 75 cc Omnipaque 350 (iohexol) IV RADIATION DOSE: 23.38 CTDIvol (mGy) MEDICAL HISTORY : Cardiovascular disease. Emphysema. Chronic obstructive pulmonary disease.GERD SURGICAL HISTORY : Cholecystectomy. Umbilical hernia repair. ENCOUNTER: Initial ACUITY: 1 day PAIN SCALE: 0/10 LOCATION: chest TECHNIQUE: Volumetric scanning of the chest was performed using a pulmonary embolism protocol MIP images were re constructed. Using automated exposure control and adjustment of the mA and/or kV according to patien t size, radiation dose was kept as low as reasonably achievable to obtain optimal diagnostic quality images. FINDINGS: PULMONARY ARTERIES: No filling defects are seen in the pulmonary arteries through the segmental level. LUNGS: There is no consolidation or pneumothorax . No concerning pulmonary nodule is visualized. PLEURAE: There is no pleural thickening or pleural effusion. MEDIASTINUM: There is good visualization of the great vessels of the middle mediastinum. No evidence of mediastin al or hilar adenopathy/mass. Coronary artery calcifications are present. MUSCULOSKELETAL: Within normal limits for patient age. MISCELLANEOUS: The visualized upper abdominal organs demonstrate no acute abnormality. CONCLUSION: No pulmonary embolus. Tarun Spring MD on January 26, 2017 at 0:21 Board Certified Radiologist. This report was verified electronically.
[2017-01-26] MEDS: RESP: IPRATROPIUM 0.5 MG/2.5 ML NEB INH SCH ×4 (03:27→21:15)
[2017-01-26] MEDS: HEPARIN SODIUM - SQ 10,000 UNITS/ML VIAL SQ SCH ×2 (05:53→17:35)
[2017-01-26] MEDS: IBUPROFEN 400 MG TAB PO PRN ×2 (06:27→20:55)
[2017-01-26 06:41] LABS: AUTOMATED NEUTROPHIL # 6.9 TH/MM3 (1.8-7.7); BASOPHIL % 0.4 % (0.0-2.0); EOSINOPHIL % 0.1 % (0.0-4.0); HEMATOCRIT 32.4 % (35.0-46.0); HEMO FLAGS DIFF FINAL; LYMPH % 14.8 % (9.0-44.0); LYMPHOCYTE # 1.3 TH/MM3 (1.0-4.8); MEAN CELL VOLUME 81.2 FL (80.0-100.0); MEAN CORPUSCULAR HEMOGLOBIN 26.3 PG (27.0-34.0); MEAN CORPUSCULAR HGB CONC 32.3 % (32.0-36.0); NEUT % 80.7 % (16.0-70.0); PLATELET COUNT 499 TH/MM3 (150-450); RED BLOOD COUNT 3.98 MIL/MM3 (4.00-5.30); RED CELL DISTRIBUTION WIDTH 18.4 % (11.6-17.2); WHITE BLOOD COUNT 8.5 TH/MM3 (4.0-11.0)
[2017-01-26 06:52] LABS: CHLORIDE 105 MEQ/L (98-107); POTASSIUM 4.1 MEQ/L (3.5-5.1); SODIUM (NA) 141 MEQ/L (136-145)
[2017-01-26 06:57] LABS: ANION GAP 7 MEQ/L (5-15); BICARBONATE 29.4 MEQ/L (21.0-32.0); BLOOD UREA NITROGEN 8 MG/DL (7-18)
[2017-01-26 07:00] LABS: ALT (GPT) 71 U/L (10-53); AST (GOT) 55 U/L (15-37)
[2017-01-26 07:01] LABS: GLOMERULAR FILTRATION RATE 74 ML/MIN (>89)
[2017-01-26 07:02] LABS: TOTAL BILIRUBIN ADULT 0.5 MG/DL (0.2-1.0)
[2017-01-26 07:03] LABS: ALKALINE PHOSPHATASE 218 U/L (45-117)
[2017-01-26] MEDS: predniSONE 20 MG TAB PO SCH (08:45)
[2017-01-26] MEDS: GABAPENTIN 100 MG CAP PO SCH ×3 (08:46→17:35)
[2017-01-26] MEDS: AZITHROMYCIN 250 MG TAB PO SCH (08:46)
[2017-01-26] MEDS: FLUTICASONE 100 MCG/VILANTEROL 25 MCG INHALER INH SCH (08:47)
[2017-01-26] MEDS: SODIUM CHLORIDE 0.9% FLUSH 10 ML FLUSH IV FLUSH SCH ×2 (08:53→20:56)
[2017-01-26] MEDS: VENLAFAXINE HCL XR 75 MG CAP PO SCH (08:53)
--- NOTE | 2017-01-26 10:35 | EKG ---
Date Performed: 01/25/2017 Time Performed: 15:35:24 PTAGE: 66 years EKG: Sinus tachycardia Possible left atrial abnormality Poor R wave progression - probable vivian l variant Compared to prior tracing no significant change Borderline ECG PREVIOUS TRACING : 11/21/2016 21.40 DOCTOR: Heber Nation Interpretating Date/Time 01/26/2017 10:29:26
[2017-01-26] MEDS ORDERED: LORATADINE 10 MG TAB PO ONE (17:15)
--- NOTE | 2017-01-26 17:41 | MB ---
cc: Milena CEDEÑO DATE OF CONSULTATION: 01/26/2017. HISTORY OF PRESENT ILLNESS: Ms. Sen is a 66-year-old white female with a history of COPD, heavy prior smoker; in fact, smoked up until about two weeks ago, who was hospitalized in respiratory failure in November for about two weeks and was on a ventilator for several days and now re-presents with shortness of breath. She says she feels much better than she was on presentation and admits that she had run out of her medicine for her nebulizer and was not using it regularly because she felt much better. She recognizes now that she has emphysema and will have use medicine consistently in the future or she will get back into trouble. On presentation, her blood gases though were stable on 2 liters. Her pO2 was 76, pH 7.32, pCO2 47, but she was severely bronchospastic. She did have a mild elevation in her white count 12.7; today it is 8.5. She has had no chest pain. No purulent sputum or hemoptysis. She had a CT angiogram yesterday on presentation which revealed no evidence of pulmonary embolism. Chest x-ray today on followup is clearing somewhat suggesting that there may have been an element of heart failure. She has had atherosclerotic vascular disease with a right carotid endarterectomy but no significant prior heart history. While in the hospital in November, she did have an echocardiogram which revealed a normal ejection fraction, mild pulmonary hypertension but no obvious wall motion abnormalities to suggest ischemia. PAST MEDICAL HISTORY: 1. Alcohol abuse. 2. Hypertension. 3. Depression. 4. Chronic neck and back pain from degenerative arthritis. 5. Peripheral neuropathy. 6. Previous abdominal hernia surgery. 7. Lumbar laminectomy. 8. A right carotid endarterectomy. 9. Cholecystectomy. 10. Tubal ligation. SOCIAL HISTORY: She has been a substantial drinker all of her adult life. 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 She continues to drink beer regularly. As mentioned, quit smoking about 10 days ago after 50-60 pack-years. Has a daughter locally who sounds very supportive. Patient has been a little depressed because she has become reclusive due to very bad oral hygiene and dentition and she cannot afford dentures. ALLERGIES: Codeine. MEDICATIONS: Reviewed in the EMR. PHYSICAL EXAMINATION: VITAL SIGNS: 98 degrees, 122/58, pulse 80, respirations 16 to 28, 02 saturation is 94% currently on room air. HEAD, EYES, EARS, NOSE, THROAT: The sclerae are nonicteric. Pharynx clear. NECK: Neck veins are flat. No adenopathy in the neck or supraclavicular region. CHEST: She does have scattered mild wheezing but no congestion or rales. HEART: Regular rhythm. No harsh murmur. No audible S3. EXTREMITIES: No peripheral edema or calf tenderness. No cyanosis of the nail beds. LABORATORY: White count noted. Liver functions are mildly elevated. Electrolytes were normal. DISCUSSION: Ms. Sen has COPD related to heavy prior smoking history. She also continues to drink alcohol to excess with liver function abnormalities. She recognizes the importance of not smoking and has quit for about two weeks. She recognizes the importance of stopping alcohol which she says she has cut way back. She says she is feeling much better than on admission basically because her medications were re-established. I would continue her Breo and she has a nebulizer at home so she can continue on PRN albuterol / Atrovent. It does not appear that she is going to need oxygen. Her Prednisone could be tapered over the next five days if stable and I encouraged her to follow up with her primary physician within a week. It can be determined at that point whether or not she needs further pulmonary followup. R. MD NAGI Jasso/SHE /5:02 PM /5:32 PM
--- NOTE | 2017-01-26 17:58 | RADHPO ---
EXAM DATE/TIME: 01/26/2017 15:51 [facility] COMPARISON: No previous studies available for comparison. INDICATIONS : Increased lab values. MEDICAL HISTORY : Hypercholesterolemia. Chronic obstructive pulmonary disease. Gastroesophageal reflux disease. Congest bartolo heart failure. Emphysema. Arthritis. SURGICAL HISTORY : Cholecystectomy. Lumbar surgery. Umbilical hernia repair. ENCOUNTER: Initial ACUITY: 1 day PAIN SCORE: 0/10 LOCATION: Abdomen. MEASUREMENTS: LIVER: 20.9 cm length COMMON DUCT: 4 mm RIGHT KIDNEY: 11.2 x 5.3 x 4.1 cm SPLEEN: 9.3 cm length FINDINGS: LIVER: Increased echogenicity without focal lesion or ductal dilatation. COMMON DUCT: No intraluminal mass or stone visualized. GALLBLADDER: Surgically absent. PANCREAS: The visualized portions are within normal limits. RIGHT KIDNEY: No hydronephrosis, stone or mass. SPLEEN: No focal lesion. CONCLUSION: 1. Fatty liver enlarged to about 21 cm. 2. Cholecystectomy without biliary ductal dilatation. Han Molina MD on January 26, 2017 at 17:56 Board Certified Radiologist. This report was verified electronically.
[2017-01-26] MEDS ORDERED: MONTELUKAST SODIUM 10 MG TAB PO SCH (21:00)
[2017-01-26] MEDS ORDERED: LORazepam 1 MG TAB PO PRN (21:30)
[2017-01-26] MEDS ORDERED: LORazepam 2 MG/ML VIAL IV PUSH PRN ×4 (21:30)
[2017-01-26] MEDS ORDERED: FLUMAZENIL 0.5 MG/5 ML VIAL IV PUSH PRN (21:30)
[2017-01-26] MEDS ORDERED: GLUCAGON 1 MG/ML VIAL OTHER PRN (21:30)
[2017-01-26] MEDS ORDERED: LORazepam 2 MG TAB PO PRN (21:30)
[2017-01-26] MEDS ORDERED: DEXTROSE 50% IN WATER 50 ML VIAL(D50) IV PUSH PRN (21:30)
--- NOTE | 2017-01-26 21:37 | HHI.HP ---
HPI Service [facility] Primary Care Physician Non-Staff Admission Diagnosis acute exac of chronic COPD Diagnoses: Chief Complaint: shortness of breath Travel History International Travel<30 Days: No Contact w/Intl Traveler <30 Da: No Traveled to Known Affected Are: No History of Present Illness 66-year-old female with a history of COPD with admission to the hospital several months ago, who presents with a three-day history of worsening shortness of breath. She reports she stopped smoking 40 days ago, and was feeling great until this past week. She stopped her inhaler for 3 days, experienced dry cough and restarted with improvement. She subsequently developed shortness of breath starting 3 days ago which is worsening. She denies any change in chronic dry cough. Denies any fevers, chills. Denies any chest pain. Denies any nausea or vomiting. She does report that she has a bunny rabbit for the past 2 years, and recently bought another bunny rabbit of a different breed on 01/21. She states that people who come to visit her feel they may be allergic to her rapid, which sheds a lot of hair. Review of Systems performed and negative except for HPI and past medical history. Past Family Social History Past Medical History Peripheral neuropathy Chronic musculoskeletal pain. COPD Anxiety Depression. Patient denies any suicidal ideation GERD. Not on treatment. Past Surgical History Right carotid endarterectomy Cholecystectomy Umbilical hernia repair. Reported Medications Reported Meds & Active Scripts Active Reported Ventolin Hfa 18 GM Inh (Albuterol Sulfate) 90 Mcg/Act Aer 2 Puff INH Q4-6H PRN Gabapentin 100 Mg Cap 300 Mg PO QID Breo Ellipta Inh (Fluticasone/Vilanterol) 100-25 Mcg/Act Inh 1 Puff INH DAILY Use daily at the same time. Effexor XR 24 HR (Venlafaxine HCl) 150 Mg Cap 150 Mg PO DAILY Allergies: Coded Allergies: Codeine (Verified Adverse Reaction, Severe, "VIOLENTLY NAUSEATED", 01/25/17) Family History Family history reviewed with the patient and found to be currently noncontributory. Social History Patient reports smoking heavily Her life until quitting 40 days ago. 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 She denies any history of withdrawal. She denies any illicit drugs. Physical Exam Vital Signs Vital Signs Date Time Temp Pulse Resp B/P Pulse Ox O2 Delivery O2 Flow Rate FiO2 01/26/17 16:00 97.2 125 16 170/92 97 01/26/17 11:57 98.1 109 20 150/76 97 01/26/17 09:17 100 Nasal Cannula 2.00 01/26/17 07:57 96.7 107 20 118/62 98 01/26/17 05:05 98.1 99 14 151/77 96 01/26/17 00:17 96.0 109 20 154/87 97 Physical Exam GENERAL: This is a well-nourished, well-developed patient, in no apparent distress.alert and oriented 3. SKIN: No rashes, ecchymoses or lesions. Cool and dry. HEAD: Atraumatic. Normocephalic. No temporal or scalp tenderness. EYES: Pupils equal round and reactive. Extraocular motions intact. No scleral icterus. No injection or drainage. ENT: Nose without bleeding, purulent drainage or septal hematoma. Throat without erythema, tonsillar hypertrophy or exudate. Uvula midline. Airway patent. NECK: Trachea midline. No JVD or lymphadenopathy. Supple, nontender, no meningeal signs. CARDIOVASCULAR: Regular rate and rhythm without murmurs, gallops, or rubs. RESPIRATORY: Clear to auscultation. Breath sounds equal bilaterally. no rales or rhonchi. Patient does have some expiratory wheezing bilaterally. GASTROINTESTINAL: Abdomen soft, non-tender, nondistended. No hepato-splenomegaly , or palpable masses. No guarding. MUSCULOSKELETAL: Extremities without clubbing, cyanosis, or edema. No joint tenderness, effusion, or edema noted. No calf tenderness. Negative Homans sign bilaterally. NEUROLOGICAL: Awake and alert. Cranial nerves II through XII intact. Motor and sensory grossly within normal limits. Five out of 5 muscle strength in all muscle groups. Normal speech. Laboratory Laboratory Tests Test 01/26/17 06:25 White Blood Count 8.5 Red Blood Count 3.98 Hemoglobin 10.5 Hematocrit 32.4 Mean Corpuscular Volume 81.2 Mean Corpuscular Hemoglobin 26.3 Mean Corpuscular Hemoglobin 32.3 Concent Red Cell Distribution Width 18.4 Platelet Count 499 Mean Platelet Volume 7.7 Neutrophils (%) (Auto) 80.7 Lymphocytes (%) (Auto) 14.8 Monocytes (%) (Auto) 4.0 Eosinophils (%) (Auto) 0.1 Basophils (%) (Auto) 0.4 Neutrophils # (Auto) 6.9 Lymphocytes # (Auto) 1.3 Monocytes # (Auto) 0.3 Eosinophils # (Auto) 0.0 Basophils # (Auto) 0.0 CBC Comment DIFF FINAL Differential Comment Sodium Level 141 Potassium Level 4.1 Chloride Level 105 Carbon Dioxide Level 29.4 Anion Gap 7 Blood Urea Nitrogen 8 Creatinine 0.78 Estimat Glomerular Filtration 74 Rate Random Glucose 226 Calcium Level 8.6 Total Bilirubin 0.5 Aspartate Amino Transf 55 (AST/SGOT) Alanine Aminotransferase 71 (ALT/SGPT) Alkaline Phosphatase 218 Total Protein 7.0 Albumin 2.8 Result Diagram: 01/26/17 0625 01/26/17 0625 Imaging Last Impressions Liver Ultrasound 01/26/17 0000 Signed Impressions: Service Date/Time: Thursday, January 26, 2017 15:51 - CONCLUSION: 1. Fatty liver enlarged to about 21 cm. 2. Cholecystectomy without biliary ductal dilatation. Han Molina MD Chest X-Ray 01/25/17 1543 Signed Impressions: Service Date/Time: Wednesday, January 25, 2017 15:49 - CONCLUSION: No acute disease. The previously noted congestive heart failure appears to have resolved. Lewis Armas MD CT Angiography 01/25/17 0000 Signed Impressions: Service Date/Time: Wednesday, January 25, 2017 23:39 - CONCLUSION: No pulmonary embolus. Tarun Spring MD Assessment and Plan Assessment and Plan COPD exacerbation. Acute. Chest x-ray and CTA with no acute findings. -Due to tachycardia, d-dimer ordered and slightly elevated. Negative pulmonary embolism. -Continue prednisone. Continue azithromycin. -Continue nebs. Possibly exacerbated by recent bunny purchase. Add Singulair and Claritin. -Prednisone taper. Likely discharge home tomorrow. //Suspected pulmonary hypertension //Suspected chronic obstructive sleep apnea -Patient with fitful sleep for years. Multiple somatic complaints. Discussed the need for workup at sleep center. She will discuss with primary care. //Hyperglycemia. Likely secondary to steroids. Will order A1c. Diabetic diet and insulin sliding scale. //Chronic alcohol abuse. //Alcoholic fatty liver. -LFTs elevated. -Fatty filtration On ultrasound as above. Patient drinks about 4 drinks per day. Patient denies history of withdrawal , however she is tachycardic and hypertensive. -We'll add CIWA protocol. Considered adding Ativan or Librium taper, however in the setting of hypercapnia, we'll avoid oversedation. -Hepatitis profile pending. Patient will need a follow-up with primary care physician as outpatient. Patient conveys understanding. //Chronic peripheral neuropathy. On gabapentin 300 mg by mouth [address] patient on gabapentin 300 mg 3 times daily in setting of COPD exacerbation. //Chronic tobacco abuse. Patient reports she quit smoking 40 years ago after a lifelong history of smoking. Cessation encouraged. Counseling provided. //Prophylaxis. SCDs. Heparin. Code Status full code Discussed Condition With patient, nurse. Vj Townsend MD Jan 26, 2017 21:37
[2017-01-26 23:19] LABS: COCAINE, URINE NEG (NEG)
[2017-01-26 23:27] LABS: AMPHETAMINE, URINE NEG (NEG)
[2017-01-26 23:28] LABS: BARBITURATES, URINE NEG (NEG)
[2017-01-27] VITALS: BP 179/90; PULSE 102; RESP 18; TEMP 95.6; O2SAT 96
[2017-01-27 04:00] VITALS: BP 160/98; PULSE 90; RESP 18; TEMP 96.5; O2SAT 96
[2017-01-27] MEDS: RESP: IPRATROPIUM 0.5 MG/2.5 ML NEB INH SCH (04:05)
[2017-01-27] MEDS: HEPARIN SODIUM - SQ 10,000 UNITS/ML VIAL SQ SCH (06:06)
[2017-01-27 06:18] LABS: AUTOMATED NEUTROPHIL # 6.2 TH/MM3 (1.8-7.7); BASOPHIL % 0.2 % (0.0-2.0); EOSINOPHIL # 0.3 TH/MM3 (0-0.4); EOSINOPHIL % 2.6 % (0.0-4.0); HEMO FLAGS DIFF FINAL; LYMPH % 38.8 % (9.0-44.0); LYMPHOCYTE # 4.6 TH/MM3 (1.0-4.8); MEAN CELL VOLUME 81.5 FL (80.0-100.0); MONO % 5.9 % (0.0-8.0); NEUT % 52.5 % (16.0-70.0); PLATELET COUNT 462 TH/MM3 (150-450); RED BLOOD COUNT 3.69 MIL/MM3 (4.00-5.30); RED CELL DISTRIBUTION WIDTH 18.4 % (11.6-17.2); WHITE BLOOD COUNT 11.8 TH/MM3 (4.0-11.0)
[2017-01-27 06:34] LABS: CHLORIDE 105 MEQ/L (98-107); POTASSIUM 3.3 MEQ/L (3.5-5.1); SODIUM (NA) 141 MEQ/L (136-145)
[2017-01-27 06:37] LABS: ANION GAP 7 MEQ/L (5-15); BICARBONATE 29.3 MEQ/L (21.0-32.0)
[2017-01-27 06:54] LABS: BLOOD UREA NITROGEN 13 MG/DL (7-18); GLOMERULAR FILTRATION RATE 90 ML/MIN (>89); MAGNESIUM 2.6 MG/DL (1.5-2.5)
[2017-01-27] MEDS ORDERED: INSULIN ASPART SUPPLEMENTAL SCALE SQ SCH (07:00)
[2017-01-27 08:00] VITALS: BP 161/70; PULSE 103; PULSE 97; RESP 20; TEMP 97.5; O2SAT 95
[2017-01-27] MEDS: predniSONE 20 MG TAB PO SCH (08:06)
[2017-01-27] MEDS: AZITHROMYCIN 250 MG TAB PO SCH (08:07)
[2017-01-27] MEDS: FLUTICASONE 100 MCG/VILANTEROL 25 MCG INHALER INH SCH (08:10)
[2017-01-27] MEDS: SODIUM CHLORIDE 0.9% FLUSH 10 ML FLUSH IV FLUSH SCH (08:10)
[2017-01-27] MEDS: VENLAFAXINE HCL XR 75 MG CAP PO SCH (08:23)
[2017-01-27] MEDS ORDERED: GABAPENTIN 100 MG CAP PO SCH (09:00)
[2017-01-27] MEDS ORDERED: LORATADINE 10 MG TAB PO SCH (09:00)
[2017-01-27] MEDS ORDERED: PNEUMOCOCCAL POLYVALENT INJ 25 MCG/0.5 ML SYR IM ONE (09:00)
[2017-01-27] MEDS ORDERED: VENTAER INH (09:40)
[2017-01-27] MEDS ORDERED: GABA100C4 PO (09:40)
[2017-01-27] MEDS ORDERED: PRED10PA2 PO (09:40)
[2017-01-27] MEDS ORDERED: AZIT250T3 PO (09:40)
[2017-01-27] MEDS ORDERED: POTASSIUM PHOSPHATE MONOBASIC 500 MG TAB PO ONE (09:45)
--- NOTE | 2017-01-27 09:49 | HHI.FF ---
Face to Face Verification Diagnosis: (1) COPD (chronic obstructive pulmonary disease) (2) Chronic obstructive pulmonary disease with acute exacerbation Physical Therapy Order: Evaluate and Treat Home Health Nursing Order: Nursing assessment with vital signs Instructions: Home health nurse for medication management once weekly Pvc Loader Order: To Evaluate: Living conditions/environment I have seen patient Rula Sen on 01/27/17. My clinical findings support the need for the requested home health care services because: Deconditioned w/ increased weakness I certify that my clinical findings support that this patient is homebound because: Hx COPD- exertion dyspnea/weakness Vj Townsend MD Jan 27, 2017 09:49
[2017-01-27] MEDS ORDERED: INFLUENZA VIRUS VACCINE (QUADRIVALENT) 0.5 ML SYR IM ONE (10:00)
[2017-01-27] MEDS ORDERED: MONT4CHW4 CHEW (15:01)
[2017-01-27] MEDS ORDERED: CLAR10CA3 PO (15:02)
--- NOTE | 2017-01-27 15:11 | HHI.PR ---
Subjective Remarks Patient seen this morning around 9 AM. Says she is feeling well. Would like to go home. Denies any chest pain or shortness of breath. Objective Vital Signs Date Time Temp Pulse Resp B/P Pulse Ox O2 Delivery O2 Flow Rate FiO2 01/27/17 08:00 103 01/27/17 08:00 97.5 97 20 161/70 95 01/27/17 04:00 96.5 90 18 160/98 96 01/27/17 00:00 95.6 102 18 179/90 96 01/26/17 21:15 94 21 01/26/17 20:00 99 01/26/17 20:00 95.5 120 18 162/86 96 01/26/17 16:00 97.2 125 16 170/92 97 I/O 01/26/17 01/26/17 01/26/17 01/27/17 01/27/17 01/27/17 07:00 15:00 23:00 07:00 15:00 23:00 Intake Total 0 ml 210 ml 240 ml 240 ml Balance 0 ml 210 ml 240 ml 240 ml Intake Oral 210 ml 240 ml 240 ml IV Total 0 ml # Voids 3 2 3 # Bowel Movements 1 0 Result Diagram: 01/27/17 0554 01/27/17 0554 Imaging Last Impressions Liver Ultrasound 01/26/17 0000 Signed Impressions: Service Date/Time: Thursday, January 26, 2017 15:51 - CONCLUSION: 1. Fatty liver enlarged to about 21 cm. 2. Cholecystectomy without biliary ductal dilatation. Han Molina MD Chest X-Ray 01/25/17 1543 Signed Impressions: Service Date/Time: Wednesday, January 25, 2017 15:49 - CONCLUSION: No acute disease. The previously noted congestive heart failure appears to have resolved. Lewis Armas MD CT Angiography 01/25/17 0000 Signed Impressions: Service Date/Time: Wednesday, January 25, 2017 23:39 - CONCLUSION: No pulmonary embolus. Taurn Spring MD Objective Remarks GENERAL: Up in bed. Off oxygen. Appears comfortable. Speaking full sentences without a breath. SKIN: Warm and dry. HEAD: Normocephalic. EYES: No scleral icterus. No injection or drainage. NECK: Supple, trachea midline. No JVD. CARDIOVASCULAR: Regular rate and rhythm without murmurs, gallops, or rubs. RESPIRATORY: Breath sounds equal bilaterally. No accessory muscle use. GASTROINTESTINAL: Abdomen soft, non-tender, nondistended. MUSCULOSKELETAL: No cyanosis, or edema. BACK: Nontender without obvious deformity. No CVA tenderness. A/P Assessment and Plan COPD exacerbation. Acute. Chest x-ray and CTA with no acute findings. -Due to tachycardia, d-dimer ordered and slightly elevated. Negative pulmonary embolism. -Continue prednisone. Continue azithromycin. -Continue nebs. Possibly exacerbated by recent bunny purchase. Add Singulair and Claritin. -discharge home on prednisone taper, azithromycin to complete treatment course. Singulair and Claritin also prescribed. Transmitted to pharmacy after patient left. Call patient, and she will make sure to spanish moss picker. //Suspected pulmonary hypertension //Suspected chronic obstructive sleep apnea -Patient with fitful sleep for years. Multiple somatic complaints. Discussed the need for workup at sleep center. She will discuss with primary care. //Hyperglycemia. Likely secondary to steroids. Will order A1c. Diabetic diet and insulin sliding scale. = A1c still pending.. She'll need to follow with primary care. Patient conveys understanding. //Chronic alcohol abuse. //Alcoholic fatty liver. -LFTs elevated. -Fatty filtration On ultrasound as above. Patient drinks about 4 drinks per day. Patient denies history of withdrawal , however she is tachycardic and hypertensive. -We'll add CIWA protocol. Considered adding Ativan or Librium taper, however in the setting of hypercapnia, we'll avoid oversedation. -Hepatitis profile pending. Patient will need a follow-up with primary care physician as outpatient. Patient conveys understanding. = We discussed alcohol cessation. She'll go down to 3 drinks per day, and decrease by 1 beer per day per week. She agrees to follow up with primary care for assistance. //Hypertensive. This is likely secondary to alcohol withdrawal. Blood pressure is acceptable. We'll need to follow-up with primary care as outpatient. //Chronic peripheral neuropathy. On gabapentin 300 mg by mouth [address] patient on gabapentin 300 mg 3 times daily in setting of COPD exacerbation. //Chronic tobacco abuse. Patient reports she quit smoking 40 years ago after a lifelong history of smoking. Cessation encouraged. Counseling provided. //Prophylaxis. SCDs. Heparin. Discharge Planning Discharge home today. Vj Townsend MD Jan 27, 2017 15:11
--- NOTE | 2017-01-27 15:34 | HHI.DS ---
Discharge Summary Admission Date Jan 25, 2017 at 17:55 Discharge Date: Jan 27, 2017 Admitting Diagnosis acute exac of chronic COPD (1) Acute respiratory failure with hypoxia ICD Code: J96.01 (2) Hypertension ICD Code: I10 (3) Alcohol abuse, daily use ICD Code: F10.10 (4) Acute respiratory failure with hypoxia and hypercapnia ICD Code: J96.01 (5) Sinus tachycardia ICD Code: R00.0 (6) Hyperglycemia ICD Code: R73.9 (7) Chronic obstructive pulmonary disease with acute exacerbation ICD Code: J44.1 Procedures No invasive procedures Brief History - From Admission 66-year-old female with a history of COPD with admission to the hospital several months ago, who presents with a three-day history of worsening shortness of breath. She reports she stopped smoking 40 days ago, and was feeling great until this past week. She stopped her inhaler for 3 days, experienced dry cough and restarted with improvement. She subsequently developed shortness of breath starting 3 days ago which is worsening. She denies any change in chronic dry cough. Denies any fevers, chills. Denies any chest pain. Denies any nausea or vomiting. She does report that she has a bunny rabbit for the past 2 years, and recently bought another bunny rabbit of a different breed on 01/21. She states that people who come to visit her feel they may be allergic to her rapid, which sheds a lot of hair. CBC/BMP: 01/27/17 0554 01/27/17 0554 Significant Findings Laboratory Tests Test 01/25/17 01/25/17 01/25/17 01/25/17 16:00 17:00 20:59 21:18 White Blood Count 12.7 TH/MM3 (4.0-11.0) Hemoglobin 11.1 GM/DL (11.6-15.3) Hematocrit 33.1 % (35.0-46.0) Red Cell Distribution Width 18.2 % (11.6-17.2) Eosinophils (%) (Auto) 19.4 % (0.0-4.0) Basophils (%) (Auto) 2.5 % (0.0-2.0) Eosinophils # (Auto) 2.5 TH/MM3 (0-0.4) Basophils # (Auto) 0.3 TH/MM3 (0-0.2) Blood Urea Nitrogen 5 MG/DL (7-18) Estimat Glomerular Filtration 73 ML/MIN (>89) Rate Random Glucose 183 MG/DL (74-106) Calcium Level 8.3 MG/DL (8.5-10.1) Arterial Blood pH 7.32 (7.380-7.420) Arterial Blood Partial 47 mmHg (38-42) Pressure CO2 Blood Gas Hemoglobin 10.9 G/DL (12.0-16.0) D-Dimer Quantitative (PE/DVT) 0.87 MG/L FEU (0.00-0.50) Test 01/26/17 01/27/17 06:25 05:54 Red Blood Count 3.98 MIL/MM3 3.69 MIL/MM3 (4.00-5.30) (4.00-5.30) Hemoglobin 10.5 GM/DL 9.6 GM/DL (11.6-15.3) (11.6-15.3) Hematocrit 32.4 % 30.0 % (35.0-46.0) (35.0-46.0) Mean Corpuscular Hemoglobin 26.3 PG 26.0 PG (27.0-34.0) (27.0-34.0) Red Cell Distribution Width 18.4 % 18.4 % (11.6-17.2) (11.6-17.2) Platelet Count 499 TH/MM3 462 TH/MM3 (150-450) (150-450) Neutrophils (%) (Auto) 80.7 % (16.0-70.0) Estimat Glomerular Filtration 74 ML/MIN (>89) Rate Random Glucose 226 MG/DL 124 MG/DL (74-106) (74-106) Aspartate Amino Transf 55 U/L (15-37) (AST/SGOT) Alanine Aminotransferase 71 U/L (10-53) (ALT/SGPT) Alkaline Phosphatase 218 U/L (45-117) Albumin 2.8 GM/DL 2.7 GM/DL (3.4-5.0) (3.4-5.0) White Blood Count 11.8 TH/MM3 (4.0-11.0) Potassium Level 3.3 MEQ/L (3.5-5.1) Phosphorus Level 2.2 MG/DL (2.5-4.9) Magnesium Level 2.6 MG/DL (1.5-2.5) Imaging Last Impressions Liver Ultrasound 01/26/17 0000 Signed Impressions: Service Date/Time: Thursday, January 26, 2017 15:51 - CONCLUSION: 1. Fatty liver enlarged to about 21 cm. 2. Cholecystectomy without biliary ductal dilatation. Han Molina MD Chest X-Ray 01/25/17 1543 Signed Impressions: Service Date/Time: Wednesday, January 25, 2017 15:49 - CONCLUSION: No acute disease. The previously noted congestive heart failure appears to have resolved. Lewis Armas MD CT Angiography 01/25/17 0000 Signed Impressions: Service Date/Time: Wednesday, January 25, 2017 23:39 - CONCLUSION: No pulmonary embolus. Tarun Spring MD Hospital Course Chest x-ray with no acute findings. CT angiogram negative for pulmonary embolism. LFTs were elevated, and patient found to have fatty filtration of liver, likely secondary to chronic alcohol use, for which patient was counseled. It is of breath improved with IV steroids, DuoNeb nebs. Patient found to have sinus tachycardia with heart rate in the 100s, likely secondary to alcohol withdrawal, as patient drinks 4 drinks per day. She was placed on CIWA protocol. She declines that as being; She will decrease alcohol intake by one drink per day per week to avoid withdrawal. she promises to follow with primary care for assistance with alcohol cessation. Discharge on prednisone taper, Levaquin to complete treatment course, follow-up with pulmonary. COPD exacerbation. Acute. Chest x-ray and CTA with no acute findings. -Due to tachycardia, d-dimer ordered and slightly elevated. Negative pulmonary embolism. -Continue prednisone. Continue azithromycin. -Continue nebs. Possibly exacerbated by recent bunny purchase. Add Singulair and Claritin. -discharge home on prednisone taper, azithromycin to complete treatment course. Singulair and Claritin also prescribed. Transmitted to pharmacy after patient left. Call patient, and she will make sure to pick up worker. //Suspected pulmonary hypertension //Suspected chronic obstructive sleep apnea -Patient with fitful sleep for years. Multiple somatic complaints. Discussed the need for workup at sleep center. She will discuss with primary care. //Hyperglycemia. Likely secondary to steroids. Will order A1c. Diabetic diet and insulin sliding scale. = A1c still pending.. She'll need to follow with primary care. Patient conveys understanding. //Chronic alcohol abuse. //Alcoholic fatty liver. -LFTs elevated. -Fatty filtration On ultrasound as above. Patient drinks about 4 drinks per day. Patient denies history of withdrawal , however she is tachycardic and hypertensive. -We'll add CIWA protocol. Considered adding Ativan or Librium taper, however in the setting of hypercapnia, we'll avoid oversedation. -Hepatitis profile pending. Patient will need a follow-up with primary care physician as outpatient. Patient conveys understanding. = We discussed alcohol cessation. She'll go down to 3 drinks per day, and decrease by 1 beer per day per week. She agrees to follow up with primary care for assistance. //Hypertensive. This is likely secondary to alcohol withdrawal. Blood pressure is acceptable. We'll need to follow-up with primary care as outpatient. //Chronic peripheral neuropathy. On gabapentin 300 mg by mouth [address] patient on gabapentin 300 mg 3 times daily in setting of COPD exacerbation. //Chronic tobacco abuse. Patient reports she quit smoking 40 years ago after a lifelong history of smoking. Cessation encouraged. Counseling provided. //Prophylaxis. SCDs. Heparin. Pt Condition on Discharge: Good Discharge Disposition: Disch w/ Home Health Serv Discharge Time: > 30 minutes Discharge Instructions DIET: Follow Instructions for: Heart Healthy Diet, Diabetic Diet Activities you can perform: Regular-No Restrictions Follow up Referrals: PCP Follow-up - 1 Week Pulmonology - 2 Weeks with Milena Herrera MD SNF/[facility]/ with [facility] New Medications: Loratadine (Claritin) 10 Mg Cap 10 MG PO DAILY Allergy Management #30 Ref 0 CAP Montelukast (Montelukast) 4 Mg Chew 4 MG CHEW HS asthma #30 Ref 0 TAB Prednisone (48) 10 mg tab Dose Pack (Prednisone (48) 10 mg tab Dose Pack) 10 Mg Dspk 10 MG PO DIRECTED Inflammation #1 Ref 0 DSPK Azithromycin (Azithromycin) 250 Mg Tab 250 MG PO DAILY copd Days 3 TAB Changed Medications: Gabapentin (Gabapentin) 100 Mg Cap 300 MG PO TID Pain Management Days 30 Ref 0 CAP (Changed from: QID; Removed Quantity) Continued Medications: Albuterol 18 GM Inh (Ventolin Hfa 18 GM Inh) 90 Mcg/Act Aer 2 PUFF INH Q4-6H PRN SHORTNESS OF BREATH #1 Ref 0 INHALER (This prescription has been renewed) Fluticasone-Vilanterol Inh (Breo Ellipta Inh) 100-25 Mcg/Act Inh 1 PUFF INH DAILY Use daily at the same time. #1 Ref 0 INHALER Venlafaxine ER 24 HR (Effexor XR 24 HR) 150 Mg Cap 150 MG PO DAILY #30 Ref 0 CAP Vj Townsend MD Jan 27, 2017 15:34
[2017-01-27 17:28] LABS: HEMOGLOBIN A1a 0.9 %; HEMOGLOBIN A1b 2.3 %; HEMOGLOBIN LA1C 2.1 %; HEMOGLOBIN P3 4.4 %
== END 2017-01-27 10:11 | disposition home health service (06) | DRG 189 ==
LOC: PHED 15:32 → PHEDA 16:37 → PH3B 17:28 → OBSVTOIN 17:55
PROVIDERS: ADMIT Internal Medicine; ATTEND Internal Medicine
DX: J96.01 Acute respiratory failure with hypoxia (principal); J44.1 Chronic obstructive pulmonary disease with (acute) exacerbation; I10 Essential (primary) hypertension; F10.239 Alcohol dependence with withdrawal, unspecified; J96.02 Acute respiratory failure with hypercapnia; R00.0 Tachycardia, unspecified; R73.9 Hyperglycemia, unspecified; Z87.891 Personal history of nicotine dependence; K70.0 Alcoholic fatty liver; G62.9 Polyneuropathy, unspecified; Z23 Encounter for immunization
CPT/HCPCS: 36600; 71010; 71275; 76705; 80048; 80053; 80069; 80074; 80307; 82805; 82948; 83036; 83735; 85025; 85379; 90686; 93005; 94150; 94640; 94664; G8987-GP; G8988-GP; J1644; J7512; J7644; Q2038; Q9967